=== PATIENT | female | born 1935 | race American Indian/Alaskan Native ===

== ENCOUNTER 2017-10-28 05:06 | Emergency (ER) | payer OTHER ==
[2017-10-28 05:10] VITALS: BP 157/83; PULSE 63; BMI 20.1
[2017-10-28] MEDS ORDERED: morphine CARPU-JECT 2 MG/1 ML DISP.SYRIN IM ONE (05:21)
--- NOTE | 2017-10-28 05:26 | PDOC ---
History of Present Illness - General History Source: Patient Exam Limitations: No Limitations - History of Present Illness Initial Comments: 10/28/17 06:56 Patient is an 81 year old female who presents to the ED with complaints of left arm pain, s/p fall that occured 1 hour prior to ED arrival. Patient reports waking up this morning and feeling light headed while walking back to bed from restroom, causing her to lose her balance and fall. She reports falling on her left arm on to a flashlight lying on the floor causing immediate pain. Patient reports applying bengay and a hot pack to left arm after fall with minimal relief. Patient reports coming into the ED for further evaluation after pain did not subside. Denies chest pain, shortness of breath, headache. Denies head trauma, loss of consciousness, hip pain, room spinning,. She denies fever, chills, nausea, vomit , diarrhea and constipation. She denies dysuria, frequency, urgency and hematuria. Remainder of ROS reviewed and unremarkable. PMHx:HTN, Hyperthyroid, Life time pre-syncope episodes with falls. Allergies: Aspirin (Dizziness) Social history: She denies alcohol, tobacco or drug use Surgical history: Thyroid removal PMD: Dr. Brian Alfred <Steven Holley - Last Filed: 10/28/17 06:55> <Anitha Kamara - Last Filed: 10/28/17 07:04> - General Chief Complaint: Injury Stated Complaint: PAIN,SHOULDER Time Seen by Provider: 10/28/17 05:18 Past History <Steven Holley - Last Filed: 10/28/17 06:55> - Past Medical History HTN: Yes Seizures: Yes (hyperthyroid) - Suicide/Smoking/Psychosocial Hx Smoking History: Never smoked Have you smoked in the past 12 months: No Information on smoking cessation initiated: No Hx Alcohol Use: No Drug/Substance Use Hx: No Substance Use Type: None <Anitha Kamara - Last Filed: 10/28/17 07:04> - Past Medical History Allergies/Adverse Reactions: Allergies Allergy/AdvReac Type Severity Reaction Status Date / Time aspirin Allergy Verified 10/28/17 05:10 Home Medications: Ambulatory Orders Hydrochlorothiazide [Hctz -] 25 mg PO DAILY 01/21/16 Levothyroxine Sodium [Unithroid] 25 mcg PO DAILY 01/21/16 Pantoprazole Sodium [Protonix] 40 mg PO DAILY 01/21/16 Valsartan [Diovan] 160 mg PO DAILY 01/21/16 Review of Systems - Review of Systems Able to Perform ROS?: Yes Comments:: 10/28/17 06:56 See HPI. All other systems reviewed and unremarkable All Other Systems: Reviewed and Negative <Steven Holley - Last Filed: 10/28/17 06:55> *Physical Exam - Vital Signs Last Vital Signs Temp Pulse Resp BP Pulse Ox 63 18 157/83 99 10/28/17 05:09 10/28/17 05:09 10/28/17 05:09 10/28/17 05:09 <Steven Holley - Last Filed: 10/28/17 06:55> - Vital Signs Last Vital Signs Temp Pulse Resp BP Pulse Ox 63 18 157/83 99 10/28/17 05:09 10/28/17 05:09 10/28/17 05:09 10/28/17 05:09 - Physical Exam Comments: 10/28/17 05:24 NAD well appearing ABC intact GCS 15 NCAT no midline cervical tenderness rrr ctabl, no rib tenderness. soft ntnd L shoulder nontender, humeral head palpable in joint L humerus w/ mid-humeral tenderness, no palpable stepoff. L elbow w/ pain w/ ROM, no palpable effusion distal pulses intact sensation intact to fingers and shoulder patch area. pelvis stable ROM hips/knees/ankles b/l neuro grossly intact, moving all 4. A&O x 3. <Anitha Kamara - Last Filed: 10/28/17 07:04> ED Treatment Course - LABORATORY CBC & Chemistry Diagram: 10/28/17 06:03 10/28/17 06:03 - ADDITIONAL ORDERS Additional order review: Laboratory Results 10/28/17 10/28/17 06:20 06:03 Sodium 134 L Potassium 3.3 L Chloride 96 L Carbon Dioxide 32 Anion Gap 6 L BUN 13 Creatinine 0.5 L Random Glucose 113 H Calcium 8.5 Troponin I 0.07 H Urine Color Ltyellow Urine Appearance Slcloudy Urine pH 7.0 Ur Specific [place] 1.012 Urine Protein Negative Urine Glucose (UA) Negative Urine Ketones Negative Urine Blood Negative Urine Nitrite Negative Urine Bilirubin Negative Urine Urobilinogen Negative Ur Leukocyte Esterase Negative 10/28/17 06:03 RBC 5.94 H MCV 58.7 L MCHC 32.1 RDW 15.9 H MPV 9.7 D Neutrophils % 86.3 H D Lymphocytes % 9.4 D Monocytes % 3.7 L Eosinophils % 0.4 D Basophils % 0.2 - Medications Given in the ED: ED Medications Discontinued Medications Generic Name Dose Route Start Last Admin Trade Name Reynaldo PRN Reason Stop Dose Admin Morphine Sulfate 2 mg 10/28/17 05:21 10/28/17 06:31 Morphine Injection - IM 10/28/17 05:22 2 mg ONCE ONE Administration <Steven Holley - Last Filed: 10/28/17 06:55> - LABORATORY CBC & Chemistry Diagram: 10/28/17 06:03 10/28/17 06:03 - RADIOLOGY Radiology Studies Ordered: Category Date Time Status CHEST PA & LAT [RAD] Stat Radiology 10/28/17 05:21 Ordered ELBOW-LEFT [RAD] Stat Radiology 10/28/17 05:21 Ordered HUMERUS-LEFT [RAD] Stat Radiology 10/28/17 05:21 Ordered SHOULDER-LEFT [RAD] Stat Radiology 10/28/17 05:21 Ordered <Anitha Kamara - Last Filed: 10/28/17 07:04> Medical Decision Making - Medical Decision Making 10/28/17 05:26 81yoF w/ longstanding history of frequent presyncopal episodes leading to falls presnets w/ same this morning, + L humeral pain where pt states she "fell onto a flashlight." - rads - pain control - ekg - screening labs. - dispo per results. 10/28/17 06:57 xrays w/ + humeral neck fx on L. CXR clear Labs at baseline from prior visit: Laboratory Tests 01/21/16 10/28/17 17:36 06:03 Sodium 135 L 134 L Troponin I 0.07 0.07 H EKG nonischemic, no e/o arrhytmia. OK for DC w/ arm sling, referral to orthopedics and pain control. <Anitha Kamara - Last Filed: 10/28/17 07:04> *DC/Admit/Observation/Transfer - Attestations Scribe Attestion: 10/28/17 06:56 Documentation prepared by Steven Holley, acting as manager of medical for Anitha Kamara MD, MD/DO. <Steven Holley - Last Filed: 10/28/17 06:55> - Discharge Dispostion Admit: No <Anitha Kamara - Last Filed: 10/28/17 07:04> Diagnosis at time of Disposition: Humerus fracture - Discharge Dispostion Disposition: HOME Condition at time of disposition: Stable - Referrals Referrals: Brian Alfred MD [Primary Care Provider] - Raza Coronado MD [Staff Physician] - - Patient Instructions Printed Discharge Instructions: How to Use a Sling Additional Instructions: You have broken your arm bone high up near the shoulder. It is very important that you DO NOT USE YOUR ARM. Keep your arm in the sling. Do not carry any weight heavier than a few pieces of paper with your LEFT arm. Take pain medicine as prescribed. Please see Dr. Coronado from Orthopedics (phone number above) this week in the office.
[2017-10-28] MEDS ORDERED: MORPHINE SULFATE 10 MG/1 ML *VIAL ONE (05:52)
[2017-10-28 06:15] LABS: BASO % 0.2 % (0-2.0); EOS % 0.4 % (0-4.5); HEMATOCRIT 34.9 % (32.4-45.2); HEMOGLOBIN 11.2 GM/dL (10.7-15.3); LYMPH % 9.4 % (8-40); MCHC 32.1 g/dl (32.0-36.0); MEAN CELL VOLUME 58.7 fl (80-96); MEAN PLT VOLUME 9.7 fl (7.5-11.1); MONO % 3.7 % (3.8-10.2); NEUT % 86.3 % (42.8-82.8); PLATELET COUNT 154 K/MM3 (134-434); RBC 5.94 M/mm3 (3.60-5.2); RDW 15.9 % (11.6-15.6); WHITE BLOOD COUNT 9.3 K/mm3 (4.0-10.0)
[2017-10-28 06:31] LABS: ADD RBC MORPHOLOGY YES; MCH 18.9 pg (25.7-33.7)
[2017-10-28 06:45] LABS: URINE APPEARANCE SLCLOUDY; URINE BILIRUBIN NEGATIVE (NEGATIVE); URINE BLOOD NEGATIVE (NEGATIVE); URINE COLOR LTYELLOW; URINE GLUCOSE (UA) NEGATIVE (NEGATIVE); URINE KETONE NEGATIVE (NEGATIVE); URINE LEUK ESTERASE NEGATIVE (NEGATIVE); URINE NITRITE NEGATIVE (NEGATIVE); URINE PROTEIN NEGATIVE (NEGATIVE); URINE UROBILINOGEN NEGATIVE mg/dL (0.2-1.0)
[2017-10-28 06:47] LABS: ANION GAP 6 (8-16); BLOOD UREA NITROGEN 13 mg/dL (7-18); CALCIUM 8.5 mg/dL (8.5-10.1); CHLORIDE 96 mmol/L (98-107); CO2 32 mmol/L (21-32); CREATININE 0.5 mg/dL (0.55-1.02); GLUCOSE,RANDOM 113 mg/dL (74-106); SODIUM 134 mmol/L (136-145)
[2017-10-28 06:51] LABS: POTASSIUM 3.3 mmol/L (3.5-5.1)
--- NOTE | 2017-10-28 08:44 | PDOC ---
*Physical Exam - Vital Signs Last Vital Signs Temp Pulse Resp BP Pulse Ox 63 18 157/83 99 10/28/17 05:09 10/28/17 05:09 10/28/17 05:09 10/28/17 05:09 <Robe Mancia - Last Filed: 10/28/17 10:34> - Vital Signs Last Vital Signs Temp Pulse Resp BP Pulse Ox 63 18 157/83 99 10/28/17 05:09 10/28/17 05:09 10/28/17 05:09 10/28/17 05:09 <EneidaArungeorgiana - Last Filed: 10/28/17 11:02> ED Treatment Course - LABORATORY CBC & Chemistry Diagram: 10/28/17 06:03 10/28/17 06:03 - ADDITIONAL ORDERS Additional order review: Laboratory Results 10/28/17 10/28/17 06:20 06:03 Sodium 134 L Potassium 3.3 L Chloride 96 L Carbon Dioxide 32 Anion Gap 6 L BUN 13 Creatinine 0.5 L Random Glucose 113 H Calcium 8.5 Troponin I 0.07 H Urine Color Ltyellow Urine Appearance Slcloudy Urine pH 7.0 Ur Specific [place] 1.012 Urine Protein Negative Urine Glucose (UA) Negative Urine Ketones Negative Urine Blood Negative Urine Nitrite Negative Urine Bilirubin Negative Urine Urobilinogen Negative Ur Leukocyte Esterase Negative 10/28/17 06:03 RBC 5.94 H MCV 58.7 L MCHC 32.1 RDW 15.9 H MPV 9.7 D Neutrophils % 86.3 H D Lymphocytes % 9.4 D Monocytes % 3.7 L Eosinophils % 0.4 D Basophils % 0.2 - Medications Given in the ED: ED Medications Discontinued Medications Generic Name Dose Route Start Last Admin Trade Name Freq PRN Reason Stop Dose Admin Morphine Sulfate 2 mg 10/28/17 05:21 10/28/17 06:31 Morphine Injection - IM 10/28/17 05:22 2 mg ONCE ONE Administration <Robe Mancia - Last Filed: 10/28/17 10:34> - LABORATORY CBC & Chemistry Diagram: 10/28/17 06:03 10/28/17 06:03 - ADDITIONAL ORDERS Additional order review: Laboratory Results 10/28/17 10/28/17 06:20 06:03 Sodium 134 L Potassium 3.3 L Chloride 96 L Carbon Dioxide 32 Anion Gap 6 L BUN 13 Creatinine 0.5 L Random Glucose 113 H Calcium 8.5 Troponin I 0.07 H Urine Color Ltyellow Urine Appearance Slcloudy Urine pH 7.0 Ur Specific [place] 1.012 Urine Protein Negative Urine Glucose (UA) Negative Urine Ketones Negative Urine Blood Negative Urine Nitrite Negative Urine Bilirubin Negative Urine Urobilinogen Negative Ur Leukocyte Esterase Negative 10/28/17 06:03 RBC 5.94 H MCV 58.7 L MCHC 32.1 RDW 15.9 H MPV 9.7 D Neutrophils % 86.3 H D Lymphocytes % 9.4 D Monocytes % 3.7 L Eosinophils % 0.4 D Basophils % 0.2 - Medications Given in the ED: ED Medications Discontinued Medications Generic Name Dose Route Start Last Admin Trade Name Reynaldo PRN Reason Stop Dose Admin Morphine Sulfate 2 mg 10/28/17 05:21 10/28/17 06:31 Morphine Injection - IM 10/28/17 05:22 2 mg ONCE ONE Administration <Deisy Monique - Last Filed: 10/28/17 11:02> Medical Decision Making - Medical Decision Making 10/28/17 08:46 Called [facility] service, who said the earliest doctor available is Dr. Browne at 10AM. 10/28/17 10:34 Spoke with KASSY Leger (covering for Dr. Browne) regarding this patient. <Robe Mancia - Last Filed: 10/28/17 10:34> - Medical Decision Making 10/28/17 10:49 X-ray with proximal humeral fracture. Discussed with KASSY Camacho who works with Dr. Browne (ortho). He recommends a sling and follow up within [address] Browne. Sling placed onto patient's LUE, continues to be NVI. Pain is well controlled. Pt declines strong pain medication, states she will take tylenol as needed. I discussed the physical exam findings, ancillary test results and final diagnoses with the patient. I answered all of the patient's questions. The patient was satisfied with the care received and felt comfortable with the discharge plan and treatment plan. The patient will call their primary care physician within 24 hours to arrange follow-up and will return to the Emergency Department with any new, persistent or worsening symptoms. <Deisy Monique - Last Filed: 10/28/17 11:02> *DC/Admit/Observation/Transfer <Robe Mancia - Last Filed: 10/28/17 10:34> - Attestations Physician Attestion: 10/28/17 10:50 I, Dr. Deisy Monique MD, attest that this document has been prepared under my direction and personally reviewed by me in its entirety. I further attest, that it accurately reflects all work, treatment, procedures and medical decision -making performed by me. <Deisy Monique - Last Filed: 10/28/17 11:02> Diagnosis at time of Disposition: Humerus fracture - Discharge Dispostion Disposition: HOME Condition at time of disposition: Stable - Referrals Referrals: Raza Coronado MD [Staff Physician] - Brian Alfred MD [Primary Care Provider] - - Patient Instructions Printed Discharge Instructions: How to Use a Sling Additional Instructions: You have broken your arm bone high up near the shoulder. It is very important that you DO NOT USE YOUR ARM. Keep your arm in the sling. Do not carry any weight heavier than a few pieces of paper with your LEFT arm. Take pain medicine as prescribed. Please see Dr. Coronado from Orthopedics (phone number above) this week in the office. - Post Discharge Activity
--- NOTE | 2017-10-28 13:43 | EKG ---
Test Reason : Blood Pressure : / mmHG Vent. Rate : 060 BPM Atrial Rate : 060 BPM P-R Int : 170 ms QRS Dur : 100 ms QT Int : 438 ms P-R-T Axes : 064 008 057 degrees QTc Int : 438 ms POOR DATA QUALITY, INTERPRETATION MAY BE ADVERSELY AFFECTED NORMAL SINUS RHYTHM NONSPECIFIC T WAVE ABNORMALITY ABNORMAL ECG WHEN COMPARED WITH ECG OF 21-JAN-2016 17:17, CRITERIA FOR SEPTAL INFARCT ARE NO LONGER PRESENT Confirmed by MD JEFF, YOHANNES ([id number]) on 10/28/2017 1:43:18 PM Referred By: Confirmed By:YOHANNES AGUILAR MD
== END 2017-10-28 13:22 | disposition home or self-care (01) ==
LOC: JER 05:06
DX: S42.215A Unspecified nondisplaced fracture of surgical neck of left humerus, initial encounter for closed fracture (principal); S42.295A Other nondisplaced fracture of upper end of left humerus, initial encounter for closed fracture; W18.39XA Other fall on same level, initial encounter; Z91.81 History of falling; Y93.89 Activity, other specified; Y92.032 Bedroom in apartment as the place of occurrence of the external cause; I10 Essential (primary) hypertension; E05.90 Thyrotoxicosis, unspecified without thyrotoxic crisis or storm
CPT/HCPCS: 36415; 71046-TC; 73030-TC-LT; 73060-TC-LT; 73070-TC-LT; 80048; 81003; 84484; 85025; 93005; 93010; 99282-25

== ENCOUNTER 2019-01-24 11:32 | Inpatient (IN) | payer OTHER ==
--- NOTE | 2019-01-24 12:24 | PDOC ---
Documentation entered by Steffany Ivory SCRIBE, acting as scribe for Flor Hollins MD. Flor Hollins MD: This documentation has been prepared by the Dianelys sandhu Daisy, SCRIBE, under my direction and personally reviewed by me in its entirety. I confirm that the documentation accurately reflects all work, treatment, procedures, and medical decision making performed by me. Attending Attestation - Resident Resident Name: Mitchell Melendrez - ED Attending Attestation I have performed the following: I have examined & evaluated the patient, The case was reviewed & discussed with the resident, I agree w/resident's findings & plan - HPI HPI: 01/24/19 12:18 83 yo F h/o prior cva, htn here wtih AMS. per pt sister whom she lives with pt was last at baseline yesterday am. in afternoon, she noticed she seemed to be more confused, not making sense when she spoke and sitting with her head down. no nv no trauma. no fever or chills. states she normally converses and walks with a walker, even cooks some times. since hasn't been walking , unable tounderstand directions, and not making sense when talking. pt is mongolian speaking. - Physicial Exam PE: 01/24/19 12:19 on exam pt is awake, alert eyes open, moist mucous membranes. mild right facial droop noted. on nasolabial fold. lungs clear bilat,heart rrr no mrg abd soft nt nd ext wwp no edema. no calf tenderness. nuero mild nasolabial fold flattening right side face. moves all four ext. appears weaker on right upper and lower, unabel to cooperate wtih strength testing as not following commands. skin warm and dry. - Medical Decision Making 01/24/19 12:21 83 yo F with h/o htn prior cva here with AMS, appears no facial droop concerns for cva. differential includes infection, such as uti or pna, electrolyte abnml, anemia, glucose derangement, ich. plan ct head labs ekg. likely admit. 01/24/19 14:[address] with subacute infarct left parietal lobe, old on the right . troponin is positive 7. ekg unchanged. ua negative for infection. cxr is unremarkable. will admit / d/w dr Beckman for subacute stroke. will admit to dr zhou covering for dr alfred. will consult cardiology. 01/24/19 15:00 Case d/w Dr. Zhou, will admit for Dr. Alfred 01/24/19: 15:11 Resident discussed case with Dr. Odonnell, cardiology. Heart Score/ECG Review #1 ECG reviewed & interpreted by me at: 12:50 General ECG Interpretation: Sinus Rhythm, Normal Rate, Normal Intervals, No acute ischemic changes Compared to previous ECG there are: No significant change (comparison 10/28/17) NIH Stroke Scale - Last Known Well Date/Time & Onset Date Last Known Well: 01/23/19 Time Last Known Well: 12:00 - Initial Evaluation Level of consciousness: Alert Ask patient the month and their age: Both incorrect Ask patient to open & close eyes; make fist and let go: Both incorrect Best gaze (horizontal eye movement): Normal Visual field testing: No visual field loss Facial paresis (Show teeth/raise eyebrows/close eyes tight): Minor paralysis ( flattened nasolabial fold, asymmetry on smiling) (right nasolabial flattening) Motor Function: Left Arm: Some effort against gravity Motor Function: Right Arm: Some effort against gravity Motor Function: Left Leg: Some effort against gravity Motor Function: Right Leg: No effort against gravity Limb Ataxia: Untestable (Joint fused or limb amputated), explain: (cant understand instructions) Sensory(Use pinprick test arms,legs,trunk,face/side to side): Normal Best language (Describe picture, name items, read sentences): Mild to moderate aphasia Dysarthria (read several words): Normal articulation Extinction and Inattention: No abnormality - Total Score NIH Stroke Scale Score: 15
[2019-01-24 12:46] LABS: BASO % 0.5 % (0-2.0); EOS % 0.5 % (0-4.5); HEMATOCRIT 35.8 % (32.4-45.2); HEMOGLOBIN 11.4 GM/dL (10.7-15.3); LYMPH % 12.4 % (8-40); MEAN CELL VOLUME 58.8 fl (80-96); MEAN PLT VOLUME 10.1 fl (7.5-11.1); MONO % 3.6 % (3.8-10.2); PLATELET COUNT 152 K/MM3 (134-434); RBC 6.09 M/mm3 (3.60-5.2); RDW 16.4 % (11.6-15.6); WHITE BLOOD COUNT 8.8 K/mm3 (4.0-10.0)
[2019-01-24 12:47] LABS: MCH 18.8 pg (25.7-33.7)
--- NOTE | 2019-01-24 13:10 | PDOC ---
History of Present Illness - History of Present Illness Initial Comments: The pt is an 83F w/ a history of HTN, previous TIA (2016 w/o deficit) who presents for acute onset AMS/confusion since approximately 1200 yesterday. Family denies pt 01/24/19 13:09 <Mitchell Melendrez - Last Filed: 01/24/19 14:13> <Flor Hollins - Last Filed: 01/24/19 15:11> - General Chief Complaint: Altered Mental Status Stated Complaint: ALTERED MENTAL STATUS Time Seen by Provider: 01/24/19 11:48 NIH Stroke Scale - Last Known Well Date/Time & Onset Date Last Known Well: 01/23/19 Time Last Known Well: 12:00 - Initial Evaluation Level of consciousness: Alert Ask patient the month and their age: Both incorrect Ask patient to open & close eyes; make fist and let go: Both incorrect Best gaze (horizontal eye movement): Normal Visual field testing: No visual field loss Facial paresis (Show teeth/raise eyebrows/close eyes tight): Minor paralysis ( flattened nasolabial fold, asymmetry on smiling) (right) Motor Function: Left Arm: Some effort against gravity Motor Function: Right Arm: Some effort against gravity Motor Function: Left Leg: Some effort against gravity Motor Function: Right Leg: No effort against gravity Limb Ataxia: Untestable (Joint fused or limb amputated), explain: (uable to follow commands) Sensory(Use pinprick test arms,legs,trunk,face/side to side): Normal Best language (Describe picture, name items, read sentences): Mild to moderate aphasia Dysarthria (read several words): Normal articulation Extinction and Inattention: No abnormality - Total Score NIH Stroke Scale Score: 15 <Mitchell Melendrez - Last Filed: 01/24/19 14:13> Past History - Past Medical History COPD: No HTN: Yes Seizures: Yes (hyperthyroid) - Immunization History Immunization Up to Date: Yes - Suicide/Smoking/Psychosocial Hx Smoking History: Never smoked Have you smoked in the past 12 months: No Hx Alcohol Use: No Drug/Substance Use Hx: No Substance Use Type: None <Mitchell Melendrez - Last Filed: 01/24/19 14:13> <Flor Hollins - Last Filed: 01/24/19 15:11> - Past Medical History Allergies/Adverse Reactions: Allergies Allergy/AdvReac Type Severity Reaction Status Date / Time aspirin Allergy Unknown Verified 01/24/19 11:58 Home Medications: Ambulatory Orders Levothyroxine Sodium [Unithroid] 25 mcg PO DAILY 01/21/16 Losartan 50Mg/Hctz 12.5MG [Hyzaar -] 1 tab PO DAILY 01/24/19 Review of Systems - Review of Systems Able to Perform ROS?: No (2/2 medical condition) <Mitchell Melendrez - Last Filed: 01/24/19 14:13> *Physical Exam - Vital Signs Last Vital Signs Temp Pulse Resp BP Pulse Ox 98.6 F 70 18 165/65 100 01/24/19 11:39 01/24/19 11:39 01/24/19 11:39 01/24/19 11:39 01/24/19 11:39 - Physical Exam Comments: GENERAL: Awake, in no acute distress HEAD: No signs of trauma, normocephalic, atraumatic EYES: PERRLA, EOMI, sclera anicteric, conjunctiva clear ENT: Hearing grossly normal, nares patent, oropharynx clear without exudates. Moist mucosa LUNGS: No distress, speaks full sentences, clear to auscultation bilaterally HEART: Regular rate and rhythm, normal S1 and S2, no murmurs appreciated, peripheral pulses normal and equal bilaterally ABDOMEN: Soft, nontender, normoactive bowel sounds. No guarding, no rebound EXTREMITIES: Normal inspection, Normal range of motion, no edema. No clubbing or cyanosis NEUROLOGICAL: Tangential speech, does not follow commands, moves all extremities independently, withdraws to pain SKIN: Warm, Dry 01/24/19 13:50 <Mitchell Melendrez - Last Filed: 01/24/19 14:13> - Vital Signs Last Vital Signs Temp Pulse Resp BP Pulse Ox 98.6 F 70 18 165/65 100 01/24/19 11:39 01/24/19 11:39 01/24/19 11:39 01/24/19 11:39 01/24/19 11:39 <Flor Hollins - Last Filed: 01/24/19 15:11> ED Treatment Course - LABORATORY CBC & Chemistry Diagram: 01/24/19 12:37 01/24/19 12:37 - ADDITIONAL ORDERS Additional order review: Laboratory Results 01/24/19 12:42 PT with INR Cancelled INR Cancelled 01/24/19 12:37 RBC 6.09 H MCV 58.8 L MCHC 32.0 RDW 16.4 H Neutrophils % 83.0 H Lymphocytes % 12.4 D Monocytes % 3.6 L Eosinophils % 0.5 Basophils % 0.5 - RADIOLOGY Radiology Studies Ordered: Category Date Time Status HEAD CT WITHOUT CONTRAST [CT] Stat CT Scan 01/24/19 12:09 Completed CHEST X-RAY PORTABLE* [RAD] Stat Radiology 01/24/19 11:59 Ordered <Mitchell Melendrez - Last Filed: 01/24/19 14:13> - LABORATORY CBC & Chemistry Diagram: 01/24/19 12:37 01/24/19 12:37 - ADDITIONAL ORDERS Additional order review: Laboratory Results 01/24/19 01/24/19 01/24/19 13:33 13:15 12:42 PT with INR 11.90 Cancelled INR 1.01 Cancelled PTT ([place] FS) 37.3 H Sodium Potassium Chloride Carbon Dioxide Anion Gap BUN Creatinine Creat Clearance w eGFR Random Glucose Calcium Total Bilirubin AST ALT Alkaline Phosphatase Creatine Kinase Troponin I Total Protein Albumin Triglycerides Cholesterol Total LDL Cholesterol HDL Cholesterol Urine Color Yellow Urine Appearance Slightly cloudy Urine pH 8.5 H D Ur Specific [place] 1.020 Urine Protein Negative Urine Glucose (UA) Negative Urine Ketones Negative Urine Blood Trace-intact Urine Nitrite Negative Urine Bilirubin Negative Urine Urobilinogen 0.2 Ur Leukocyte Esterase Negative Urine WBC (Auto) 1 Urine RBC (Auto) 2 Urine Casts (Auto) Few U Epithel Cells (Auto) 0.2 Urine Crystals (Auto) None seen Urine Bacteria (Auto) Few 01/24/19 12:37 PT with INR INR PTT (Actin FS) Sodium 138 Potassium 3.6 Chloride 103 Carbon Dioxide 25 Anion Gap 9 BUN 8 Creatinine 0.5 L Creat Clearance w eGFR 117.83 Random Glucose 88 Calcium 8.4 L Total Bilirubin 0.4 AST 60 H ALT 24 Alkaline Phosphatase 62 Creatine Kinase 146 Troponin I 7.13 H* Total Protein 6.7 Albumin 3.2 L Triglycerides 79 Cholesterol 102 Total LDL Cholesterol 51 HDL Cholesterol 45 Urine Color Urine Appearance Urine pH Ur Specific [place] Urine Protein Urine Glucose (UA) Urine Ketones Urine Blood Urine Nitrite Urine Bilirubin Urine Urobilinogen Ur Leukocyte Esterase Urine WBC (Auto) Urine RBC (Auto) Urine Casts (Auto) U Epithel Cells (Auto) Urine Crystals (Auto) Urine Bacteria (Auto) 01/24/19 12:37 RBC 6.09 H MCV 58.8 L MCHC 32.0 RDW 16.4 H MPV 10.1 Neutrophils % 83.0 H Lymphocytes % 12.4 D Monocytes % 3.6 L Eosinophils % 0.5 Basophils % 0.5 <Flor Hollins - Last Filed: 01/24/19 15:11> Medical Decision Making - Medical Decision Making ED Course Labs sent ECG CXR CT head w/o CT head w/ acute vs subacute parietal infarct -Dr. Beckman consulted, will evaluate pt 01/24/19 13:52 Troponinemia to 7 01/24/19 14:07 <Mitchell Melendrez - Last Filed: 01/24/19 14:13> *DC/Admit/Observation/Transfer <Mitchell Melendrez - Last Filed: 01/24/19 14:13> - Discharge Dispostion Decision to Admit order: Yes <Flor Hollins - Last Filed: 01/24/19 15:11> Diagnosis at time of Disposition: CVA (cerebral vascular accident), NSTEMI (non-ST elevated myocardial infarction ) - Referrals Referrals: Brian Alfred MD [Primary Care Provider] -
[2019-01-24 13:19] LABS: ANISOCYTOSIS 2+; MACROCYTOSIS 0; OVALOCYTE 1+; PLATELET ESTIMATE NORMAL; TARGET CELLS 1+
[2019-01-24 13:24] LABS: ALBUMIN 3.2 g/dl (3.4-5.0); ALK PHOS 62 U/L (45-117); ANION GAP 9 MMOL/L (8-16); BILIRUBIN,TOTAL 0.4 mg/dL (0.2-1); BLOOD UREA NITROGEN 8 mg/dL (7-18); CALCIUM 8.4 mg/dL (8.5-10.1); CHLORIDE 103 mmol/L (98-107); CO2 25 mmol/L (21-32); CREATININE 0.5 mg/dL (0.55-1.3); GLUCOSE,RANDOM 88 mg/dL (74-106); POTASSIUM 3.6 mmol/L (3.5-5.1); SGOT/AST 60 U/L (15-37); SGPT/ALT 24 U/L (13-61); SODIUM 138 mmol/L (136-145); TOT PROT 6.7 g/dl (6.4-8.2)
[2019-01-24] MEDS ORDERED: SODIUM CHLORIDE 0.9% 500 ML INFUS.BAG IV ONE (13:32)
[2019-01-24 13:57] LABS: CHOLESTEROL 102 mg/dL (50-200); HDL CHOLESTEROL 45 mg/dL (40-60); TRIGLYCERIDES 79 mg/dL (0-150)
[2019-01-24 14:04] LABS: INR 1.01 (0.83-1.09); PROTHROMBIN TIME (PATIENT) 11.9 SEC (9.7-13.0)
[2019-01-24 14:06] LABS: PH,URINE 8.5 (5.0-8.0); URINE APPEARANCE Slightly Cloudy; URINE BILIRUBIN Negative (NEGATIVE); URINE COLOR Yellow; URINE GLUCOSE (UA) Negative (NEGATIVE); URINE KETONE Negative (NEGATIVE); URINE LEUK ESTERASE Negative (NEGATIVE); URINE NITRITE Negative (NEGATIVE); URINE PROTEIN Negative (NEGATIVE); URINE UROBILINOGEN 0.2 mg/dL (0.2-1.0)
[2019-01-24 14:06] LABS: ACTIVATED PTT 37.3 SECONDS (25.2-36.5)
[2019-01-24 14:10] LABS: EPI CELLS 0.2 /HPF (0-5/HPF); URINE RBC 2 /hpf (0-4); URINE WBC 1 /hpf (0-5)
[2019-01-24 14:11] LABS: URINE BACTERIA FEW /hpf (NEGATIVE); URINE CASTS FEW /lpf (0-8); URINE CRYSTALS NONE SEEN /hpf
--- NOTE | 2019-01-24 15:20 | EKG ---
Test Reason : Blood Pressure : / mmHG Vent. Rate : 065 BPM Atrial Rate : 065 BPM P-R Int : 168 ms QRS Dur : 106 ms QT Int : 456 ms P-R-T Axes : 053 013 061 degrees QTc Int : 474 ms NORMAL SINUS RHYTHM ANTERIOR INFARCT , AGE UNDETERMINED ABNORMAL ECG WHEN COMPARED WITH ECG OF 28-OCT-2017 06:30, ANTERIOR INFARCT IS NOW PRESENT Confirmed by CIERRA SHI MD ([id number]) on 01/24/2019 3:20:04 PM Referred By: Confirmed By:CIERRA SHI MD
--- NOTE | 2019-01-24 19:20 | CON.NEURO ---
Consult Consult Specialty:: NEUROLOGY-CHARLIE SWANSON Reason for Consultation:: 'Confusion" - History of Present Illness History of Present Illness: The pt is an 83F w/ a history of HTN, previous TIA (2016 w/o deficit) who presents for acute onset AMS/confusion since approximately 1200 yesterday. sas per sister she became"confused" yesterday at lunch time, began misnaming objects and tends to look more to left, has difficulty recognizing family members. - Alcohol/Substance Use Hx Alcohol Use: No - Smoking History Smoking history: Never smoked Have you smoked in the past 12 months: No Home Medications - Allergies Allergies/Adverse Reactions: Allergies Allergy/AdvReac Type Severity Reaction Status Date / Time aspirin Allergy Unknown Verified 01/24/19 11:58 - Home Medications Home Medications: Ambulatory Orders Levothyroxine Sodium [Unithroid] 25 mcg PO DAILY 01/21/16 Losartan 50Mg/Hctz 12.5MG [Hyzaar -] 1 tab PO DAILY 01/24/19 Physical Exam-Neuro Vital Signs: Vital Signs Temperature 97.9 F 01/24/19 17:03 Pulse Rate 69 01/24/19 17:03 Respiratory Rate 18 01/24/19 17:03 Blood Pressure 172/76 H 01/24/19 17:03 O2 Sat by Pulse Oximetry (%) 100 01/24/19 17:03 Labs: CBC, BMP 01/24/19 12:37 01/24/19 12:37 INR, PTT INR 1.01 (0.83-1.09) 01/24/19 13:15 - Neuro Exam Level Of Consciousness: Yes: Alert (unable to test further due to language d/o) Eyes: Yes: PERRL, Right Hemianopsia Speech: Wernicke's Aphasia (Language-impaired comprehension, non-fluent speech- mixed motor/sensory aphasia) Dominant Hand: Right Mini Mental Exam: + prosopagnosia, follows 1 step commands only Cranial Nerves II-XII Intact: No (diminished right nlf) Gag: Present DTR's: 1+ Left Brachioradialis, 1+ Right Brachioradialis, 1+ Left Achilles, 1+ Right Achilles (trace bilat knees), 2+ Left Bicep, 2+ Right Bicep, 2+ Left Tricep, 2+ Right Tricep Babinski: Present (right) Response to light touch: Abnormal Response to pain prick: Abnormal (diminished touch/pin sensation right arm/leg) Coordination: Normal: Finger to Nose (unable to test) Motor Strength: 2/5: Right Leg, 4/5: Right Arm, 5/5: Left Arm, Left Leg Imaging - Results MRI: Report Reviewed (Reported with left post. parietal infarct) Assessment/Plan Pt. with right motor/sensory deficit, right hemianopsia, mri reported with left post. parietal infarct?? post div MCAterritory but exam is more c/w mca stem territory infarct- ant. aphasia, field cut etc. Likely etiology is cardioembolic. she is out of thrombolysis/thrombectomy window Suggest: Plavix 75mg daily, card.consult/echo, carotid ultrasound, telemetry.
[2019-01-25 06:59] LABS: BASO % 0.4 % (0-2.0); EOS % 0.2 % (0-4.5); HEMATOCRIT 31.3 % (32.4-45.2); HEMOGLOBIN 10.4 GM/dL (10.7-15.3); LYMPH % 15.2 % (8-40); MEAN CELL VOLUME 58.4 fl (80-96); MEAN PLT VOLUME 10.6 fl (7.5-11.1); MONO % 6.2 % (3.8-10.2); PLATELET COUNT 154 K/MM3 (134-434); RBC 5.37 M/mm3 (3.60-5.2); RDW 16.7 % (11.6-15.6)
[2019-01-25 07:20] LABS: ALBUMIN 2.7 g/dl (3.4-5.0); ALK PHOS 57 U/L (45-117); ANION GAP 9 MMOL/L (8-16); BILIRUBIN,TOTAL 0.6 mg/dL (0.2-1); BLOOD UREA NITROGEN 11 mg/dL (7-18); CHLORIDE 103 mmol/L (98-107); CO2 27 mmol/L (21-32); CREATININE 0.4 mg/dL (0.55-1.3); GLUCOSE,RANDOM 68 mg/dL (74-106); POTASSIUM 3.1 mmol/L (3.5-5.1); SGOT/AST 45 U/L (15-37); SGPT/ALT 21 U/L (13-61); SODIUM 139 mmol/L (136-145); TOT PROT 5.7 g/dl (6.4-8.2)
[2019-01-25 07:54] LABS: MCH 19.3 pg (25.7-33.7)
--- NOTE | 2019-01-25 09:15 | CON.CARD ---
Consult Consult Specialty:: cardio - History of Present Illness Chief Complaint: alt MS History of Present Illness: 83 F here with confusion. family noted altered MS, misnaming objects. seen by neuro. dx'd with acute CVA ? cardioembolic currently: states she speaks welsh, answering most not all questions. appears to have left gaze preference denies cp, sob, palpitations PMH: HTN TIA - Alcohol/Substance Use Hx Alcohol Use: No - Smoking History Smoking history: Never smoked Have you smoked in the past 12 months: No Home Medications - Allergies Allergies/Adverse Reactions: Allergies Allergy/AdvReac Type Severity Reaction Status Date / Time aspirin Allergy Unknown Verified 01/24/19 11:58 - Home Medications Home Medications: Ambulatory Orders Levothyroxine Sodium [Unithroid] 25 mcg PO DAILY 01/21/16 Losartan 50Mg/Hctz 12.5MG [Hyzaar -] 1 tab PO DAILY 01/24/19 Review of Systems - Review of Systems Constitutional: denies: Chills, Fever Eyes: denies: Eye Pain HENT: denies: Nasal Congestion Neck: denies: Stiffness Cardiovascular: denies: Palpitations Respiratory: denies: Orthopnea, PND Gastrointestinal: denies: Diarrhea, Rectal Bleeding Genitourinary: denies: Burning, Hematuria Musculoskeletal: denies: Muscle Pain Integumentary: denies: Rash Neurological: denies: Numbness, Seizure, Syncope Endocrine: denies: Excessive Sweating Hematology/Lymphatic: denies: Excessive Bleeding Vital Signs: Vital Signs Temperature 97.8 F 01/24/19 22:00 Pulse Rate 62 01/25/19 07:06 Respiratory Rate 24 H 01/25/19 07:06 Blood Pressure 112/96 01/25/19 07:06 O2 Sat by Pulse Oximetry (%) 100 01/25/19 07:06 Constitutional: Yes: Well Nourished, No Distress Eyes: No: Sclera Icterus HENT: No: Nasal Congestion Neck: No: Decreased ROM Respiratory: Yes: CTA Bilaterally. No: Accessory Muscle Use Gastrointestinal: Yes: Normal Bowel Sounds. No: Distention, Hepatomegaly, Palpable Mass, Tenderness Cardiovascular: Yes: Regular Rate and Rhythm JVD: No Carotid Bruit: No PMI: Non-Displaced Heart Sounds: Yes: S1, S2. No: Gallop Murmur: No: Systolic Murmur, Diastolic Murmur Musculoskeletal: Yes: Other (No kyphosis) Extremities: No: Cool, Cyanosis Edema: No Peripheral Pulses: 2+ Left Carotid, 2+ Right Carotid, 2+ Left Doralis Pedis, 2+ Right Dorsalis Pedis Integumentary: No: Jaundice Neurological: Yes: Alert, Oriented (x3) Psychiatric: No: Agitated - Other Data Labs, Other Data: CBC, BMP 01/25/19 05:50 01/25/19 05:50 INR, PTT INR 1.01 (0.83-1.09) 01/24/19 13:15 Troponin, BNP 01/24/19 01/24/19 01/25/19 12:37 17:35 05:50 Troponin I 7.13 H* 6.96 H* 5.64 H* Troponin, BNP 01/24/19 01/24/19 01/25/19 12:37 17:35 05:50 Troponin I 7.13 H* 6.96 H* 5.64 H* Assessment/Plan ECG: NSR, ? old ASMI, NSST-Ts--similar to prior when accounting for baseline wander artifact CXR: clear lungs/pleura acute CVA: -neuro input appreciated: MRI reported with left post. parietal infarct, ?? post div MCA territory but exam is more c/w mca stem territory infarct-suspect cardioembolic etiology. (was out of thrombolysis/thrombectomy window) -antiPLT per neuro (rec.s plavix). -statin -bp targets per neuro -echo, carotid ultrasound -telemetry monitoring HTN: -bp reasonably controlled, low normal this am -targets per neuro (acute CVA)
--- NOTE | 2019-01-25 12:16 | HP ---
Admitting History and Physical - Admission History of Present Illness: 83 yo F h/o prior cva, htn here wtih AMS. per pt sister whom she lives with pt was last at baseline yesterday am. in afternoon, she noticed she seemed to be more confused, not making sense when she spoke and sitting with her head down. no nv no trauma. no fever or chills. states she normally converses and walks with a walker, even cooks some times. since hasn't been walking , unable tounderstand directions, and not making sense when talking. pt is latvian speaking. - Past Medical History Cardiovascular: Yes: HTN Endocrine: Yes: Hypothyroidism - Smoking History Smoking history: Never smoked Have you smoked in the past 12 months: No - Alcohol/Substance Use Hx Alcohol Use: No Home Medications - Allergies Allergies/Adverse Reactions: Allergies Allergy/AdvReac Type Severity Reaction Status Date / Time aspirin Allergy Unknown Verified 01/24/19 11:58 - Home Medications Home Medications: Ambulatory Orders Levothyroxine Sodium [Unithroid] 25 mcg PO DAILY 01/21/16 Losartan 50Mg/Hctz 12.5MG [Hyzaar -] 1 tab PO DAILY 01/24/19 Atorvastatin Ca [Lipitor] 40 mg PO HS tablet 02/01/19 Clopidogrel Bisulfate [Plavix -] 75 mg PO DAILY tablet 02/01/19 Family Disease History - Family Disease History Family History: Unable to Obtain Review of Systems Unable to obtain ROS, reason: CVA/Aphasia Physical Examination Vital Signs: Vital Signs Temperature 97.8 F 01/24/19 22:00 Pulse Rate 62 01/25/19 07:06 Respiratory Rate 24 H 01/25/19 07:06 Blood Pressure 112/96 01/25/19 07:06 O2 Sat by Pulse Oximetry (%) 100 01/25/19 07:06 Eyes: Yes: WNL HENT: Yes: WNL Neck: Yes: WNL, Supple Cardiovascular: Yes: WNL, Regular Rate and Rhythm Respiratory: Yes: WNL, Regular, CTA Bilaterally Gastrointestinal: Yes: WNL, Normal Bowel Sounds, Soft Extremities: Yes: WNL Edema: No Neurological: Yes: Aphasia ...Motor Strength: RUE (2/5 motor strength RUE/RLE), RLE Labs: CBC, BMP 01/25/19 05:50 04/29/19 05:50 Problem List - Problems (1) CVA (cerebral vascular accident) Assessment/Plan: Monitor BP Ct scan head showed acute/subacute parietal infarct Neuro/cardio consults Code(s): I63.9 - CEREBRAL INFARCTION, UNSPECIFIED (2) HTN (hypertension) Assessment/Plan: Cont losartan/hctz Code(s): I10 - ESSENTIAL (PRIMARY) HYPERTENSION (3) Hypothyroidism Assessment/Plan: Cont levothyroxine Code(s): E03.9 - HYPOTHYROIDISM, UNSPECIFIED
[2019-01-25] MEDS: LOSARTAN 50MG/HCTZ 12.5MG 1 TAB (FP) PO SCH (12:21)
[2019-01-25] MEDS: LEVOTHYROXINE NA 25 MCG TABLET (FP) PO SCH (12:21)
--- NOTE | 2019-01-25 12:21 | PN ---
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 (short form) - Note 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: 83F w/ a history of HTN, previous TIA (2016 w/o deficit) who presents for acute onset AMS/confusion since approximately 1200 01/24/19; as per sister she became"confused", began misnaming objects and tends to look more to left, has difficulty recognizing family members. FU : continues to be aphasic awaiting MRI ASA allergy TEST: Doppler Impression: Mild intimal thickening at the common carotid bifurcation, bilaterally with a tiny plaque on the right without evidence of hemodynamically significant stenosis, bilaterally. - Alcohol/Substance Use Hx Alcohol Use: No - Smoking History Smoking history: Never smoked Have you smoked in the past 12 months: No Home Medications - Allergies Allergies/Adverse Reactions: Allergies Allergy/AdvReac Type Severity Reaction Status Date / Time aspirin Allergy Unknown Verified 01/24/19 11:58 - Home Medications Home Medications: Ambulatory Orders Levothyroxine Sodium [Unithroid] 25 mcg PO DAILY 01/21/16 Losartan 50Mg/Hctz 12.5MG [Hyzaar -] 1 tab PO DAILY 01/24/19 Physical Exam-Neuro Vital Signs: Vital Signs Temperature 97.8 F 01/24/19 22:00 Pulse Rate 62 01/25/19 07:06 Respiratory Rate 24 H 01/25/19 07:06 Blood Pressure 112/96 01/25/19 07:06 O2 Sat by Pulse Oximetry (%) 100 01/25/19 07:06 Labs: CBCD WBC 8.0 K/mm3 (4.0-10.0) 01/25/19 05:50 RBC 5.37 M/mm3 (3.60-5.2) H 01/25/19 05:50 Hgb 10.4 GM/dL (10.7-15.3) L 01/25/19 05:50 Hct 31.3 % (32.4-45.2) L 01/25/19 05:50 MCV 58.4 fl (80-96) L 01/25/19 05:50 MCHC 33.0 g/dl (32.0-36.0) 01/25/19 05:50 RDW 16.7 % (11.6-15.6) H 01/25/19 05:50 Plt Count 154 K/MM3 (134-434) 01/25/19 05:50 MPV 10.6 fl (7.5-11.1) 01/25/19 05:50 CMP Sodium 139 mmol/L (136-145) 01/25/19 05:50 Potassium 3.1 mmol/L (3.5-5.1) L 01/25/19 05:50 Chloride 103 mmol/L (98-107) 01/25/19 05:50 Carbon Dioxide 27 mmol/L (21-32) 01/25/19 05:50 Anion Gap 9 MMOL/L (8-16) 01/25/19 05:50 BUN 11 mg/dL (7-18) 01/25/19 05:50 Creatinine 0.4 mg/dL (0.55-1.3) L 01/25/19 05:50 Creat Clearance w eGFR 152.44 (>60) 01/25/19 05:50 Calcium 8.0 mg/dL (8.5-10.1) L 01/25/19 05:50 Total Bilirubin 0.6 mg/dL (0.2-1) 01/25/19 05:50 AST 45 U/L (15-37) H 01/25/19 05:50 ALT 21 U/L (13-61) 01/25/19 05:50 Alkaline Phosphatase 57 U/L (45-117) 01/25/19 05:50 Total Protein 5.7 g/dl (6.4-8.2) L 01/25/19 05:50 Albumin 2.7 g/dl (3.4-5.0) L 01/25/19 05:50 - Neuro Exam Level Of Consciousness: Yes: Alert (unable to test further due to language d/o) Eyes: Yes: PERRL, Right Hemianopsia Speech: Wernicke's Aphasia (Language-impaired comprehension, non-fluent speech- mixed motor/sensory aphasia) Dominant Hand: Right Mini Mental Exam: + prosopagnosia, follows 1 step commands only Cranial Nerves II-XII Intact: No (diminished right nlf) Gag: Present DTR's: 1+ Left Brachioradialis, 1+ Right Brachioradialis, 1+ Left Achilles, 1+ Right Achilles (trace bilat knees), 2+ Left Bicep, 2+ Right Bicep, 2+ Left Tricep, 2+ Right Tricep Babinski: Present (right) Response to light touch: Abnormal Response to pain prick: Abnormal (diminished touch/pin sensation right arm/leg) Coordination: Normal: Finger to Nose (unable to test) Motor Strength: 2/5: Right Leg, 4/5: Right Arm, 5/5: Left Arm, Left Leg Imaging - Results MRI: Report Reviewed (Reported with left post. parietal infarct) Assessment/Plan Pt. with right motor/sensory deficit, right hemianopsia, possible left post. parietal infarct?? post div MCAterritory but exam is more c/w mca stem territory infarct- ant. aphasia, field cut etc. Likely etiology is cardioembolic. she is out of thrombolysis/thrombectomy window awaiting MRI BRAIN /MRA Suggest: Plavix 75mg daily ( ?ASa allergy) , card-consult/echo, carotid ultrasound (-) /holter a1c, tsh, PT and ST consult DR BERRY
--- NOTE | 2019-01-25 15:59 | ECHO ---
Name: SAMANTHA GIBBONS Exam:Adult Echocardiogram Study Date: 01/25/2019 10:40 AM Age: 83 yrs Reason For Study: POSITIVE TROPS Height: 64 in Weight: 115 lb BSA: 1.5 m2 MMode/2D Measurements & Calculations IVSd: 0.97 cm Ao root diam: 2.8 cm LVIDd: 4.4 cm LA dimension: 3.0 cm LVIDs: 3.0 cm LVPWd: 0.78 cm EDV(Teich): 86.1 ml LVOT diam: 1.9 cm ESV(Teich): 33.7 ml Doppler Measurements & Calculations Ao V2 max: 152.9 cm/sec LV V1 max P.3 mmHg Ao max P.4 mmHg LV V1 mean P.7 mmHg Ao V2 mean: 98.2 cm/sec LV V1 max: 90.8 cm/sec Ao mean P.4 mmHg LV V1 mean: 60.9 cm/sec Ao V2 VTI: 30.1 cm LV V1 VTI: 20.1 cm SARABJIT(I,D): 1.8 cm2 SARABJIT(V,D): 1.6 cm2 MR max siddhartha: 546.8 cm/sec SV(LVOT): 55.3 ml MR max P.6 mmHg TR max siddhartha: 273.4 cm/sec Med Peak E' Siddhartha: 4.2 cm/sec TR max P.9 mmHg Lat Peak E' Siddhartha: 5.5 cm/sec Procedure A complete two-dimensional transthoracic echocardiogram was performed (2D, M-mode, Doppler and color flow Doppler). The study was technically good with many images being of high quality. Left Ventricle The left ventricle is normal in size. Left ventricular systolic function is normal. Ejection Fraction = 60- 65%. Grade I diastolic dysfunction, (abnormal relaxation pattern). Ratio E/E'= 16. No regional wall m otion abnormalities noted. Right Ventricle The right ventricle is normal size. The right ventricular systolic function is normal. RV systolic TD I is 15 cm/s. Atria The left atrial size is normal. Right atrial size is normal. Mitral Valve The mitral valve is normal in structure and function. There is moderate mitral regurgitation. Tricuspid Valve The tricuspid valve is normal in structure and function. There is moderate tricuspid regurgitation. P ulmonary artery systolic pressure is at least 35 mmHg assuming RA pressure of 3 mmHg. Aortic Valve There is mild aortic sclerosis.;. No aortic regurgitation is present. Pulmonic Valve The pulmonic valve is not well visualized. Great Vessels The aortic root is normal size. Pericardium/Pleura There is no pericardial effusion. Interpretation Summary The left ventricle is normal in size. Left ventricular systolic function is normal. No regional wall motion abnormalities noted. Ejection Fraction = 60-65%. Grade I diastolic dysfunction, (abnormal relaxation pattern). Ratio E/E'= 16 The right ventricular systolic function is normal. The left atrial size is normal. Right atrial size is normal. There is moderate mitral regurgitation. There is moderate tricuspid regurgitation. Pulmonary artery systolic pressure is at least 35 mmHg assuming RA pressure of 3 mmHg There is mild aortic sclerosis. There is no pericardial effusion. Previous study is not available for comparison Rogelio John MD 01/25/2019 03:58 PM
[2019-01-25] MEDS: ATORVASTATIN CA 40 MG TABLET (FP) PO SCH (21:44)
[2019-01-25] MEDS ORDERED: CLOPIDOGREL BISULFATE 75 MG TABLET (FP) PO ONE (23:11)
[2019-01-25] MEDS: CLOPIDOGREL BISULFATE 75 MG TABLET (FP) PO SCH (23:33)
[2019-01-26] MEDS: LEVOTHYROXINE NA 25 MCG TABLET (FP) PO SCH (06:22)
[2019-01-26] MEDS: CLOPIDOGREL BISULFATE 75 MG TABLET (FP) PO SCH (10:38)
[2019-01-26] MEDS: LOSARTAN 50MG/HCTZ 12.5MG 1 TAB (FP) PO SCH (10:39)
--- NOTE | 2019-01-26 10:52 | PN ---
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 (short form) - Note 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: s: no chest pain, palps, dizziness. Current Medications Atorvastatin Calcium (Lipitor -) 40 mg PO HS [facility] Last Admin: 01/25/19 21:44 Dose: 40 mg Clopidogrel Bisulfate (Plavix -) 75 mg PO DAILY [facility] Last Admin: 01/26/19 10:38 Dose: 75 mg HCTZ/Losartan Potassium (Hyzaar -) 1 tab PO DAILY [facility] Last Admin: 01/26/19 10:39 Dose: 1 tab Levothyroxine Sodium (Synthroid -) 25 mcg PO DAILY@0700 [facility] Last Admin: 01/26/19 06:22 Dose: 25 mcg Vital Signs Period Temp Pulse Resp BP Sys/Espinal Pulse Ox Last 24 Hr 98.6 F-99.9 F 58-69 18-69 137-157/64-103 99 Constitutional: Yes: Well Nourished, No Distress Eyes: No: Sclera Icterus HENT: No: Nasal Congestion Neck: No: Decreased ROM Respiratory: Yes: CTA Bilaterally. No: Accessory Muscle Use Gastrointestinal: Yes: Normal Bowel Sounds. No: Distention, Hepatomegaly, Palpable Mass, Tenderness Cardiovascular: Yes: Regular Rate and Rhythm JVD: No Carotid Bruit: No PMI: Non-Displaced Heart Sounds: Yes: S1, S2. No: Gallop Murmur: No: Systolic Murmur, Diastolic Murmur Musculoskeletal: Yes: Other (No kyphosis) Extremities: No: Cool, Cyanosis Edema: No Peripheral Pulses: 2+ Left Carotid, 2+ Right Carotid, 2+ Left Doralis Pedis, 2+ Right Dorsalis Pedis Integumentary: No: Jaundice Neurological: Yes: Alert, Oriented (x3) Psychiatric: No: Agitated Assessment/Plan ECG: NSR, ? old ASMI, NSST-Ts--similar to prior when accounting for baseline wander artifact CXR: clear lungs/pleura echo: nl LV function, impaired relaxation, nl RV, mod MR, mod TR, PASP at least 35 mmHg, mild ao sclerosis tele: sinus acute CVA: -neuro input appreciated: MRI reported with left post. parietal infarct, ?? post div MCA territory but exam is more c/w mca stem territory infarct-suspect cardioembolic etiology. (was out of thrombolysis/thrombectomy window) -neurology following - rec plavix for antiplatelet -statin -bp targets per neuro -echo nl LV function, carotid dopplers no hemodynamically significant stenosis -telemetry monitoring HTN: -bp reasonably controlled -targets per neuro (acute CVA)
--- NOTE | 2019-01-26 11:16 | CONSULT ---
Admitting History and Physical - Primary Care Physician PCP: Yeimy Zhou - Admission History of Present Illness: 83F w/ a history of HTN, previous TIA (2016 w/o deficit) who presents for acute onset AMS/confusion since approximately 1200 01/24/19; as per sister she became"confused", began misnaming objects and tends to look more to left, has difficulty recognizing family members. Per neurology- Pt. with right motor/sensory deficit, right hemianopsia, possible left post. parietal infarct?? post div MCA territory but exam is more c/w mca stem territory infarct- ant. aphasia, field cut etc. Likely etiology is cardioembolic. she is out of thrombolysis/thrombectomy window CT head noted. Awaiting MRI. History Source: Medical Record Limitations to Obtaining History: Clinical Condition - Past Medical History ...: No - Smoking History Smoking history: Never smoked Have you smoked in the past 12 months: No - Alcohol/Substance Use Hx Alcohol Use: No History - Admission Reason For Visit: CVA, NSTEMI - Diagnostics X-ray: Report Reviewed CT Scan: Report Reviewed MRI: Pending - General Mental Status: Awake and Alert Attention: Intact Ability to Follow Directions: Poor (intermittent) Head/Neck Control: WFL - Hearing Hearing: Functional Hearing: Normal Hearing Aide: No With Patient: No Speech Evaluation - Communication Primary Language: [place] Communication: Yes: Simple Responses, Aphasia Oral Expression Ability: Yes: Moderate Impairment, Severe Impairment - Speech Production Apraxia: Yes Able to Make Needs Known: Yes: Moderately Impaired, Severely Impaired Intelligibility: Yes: WNL - Speech Characteristics Voice Loudness: Normal Voice Pitch: Yes: Normal Voice Phonatory-based Quality: Yes: Normal Speech Pattern: Normal Speech Clarity: < 100% Nasal Resonance: Normal Articulation: Yes: Precise - Language/Auditory Comprehension Follows: Yes: 1 Stage Simple Commands (Follows 1 stage whole body commands but not 1 stage simple commands. Impaired y/n responses. Seems to understand more than she demonstrates, occasionally responding "live with my sister' "I dont understand") Observation: Able to respond to yes/no queries: Yes (inconsistent/unreliable), Yes/No Confusion: Yes, Comprehends Conversational Speech: Yes (simple, inconsistent), Benefits from Slow Speech: Yes, Benefits from Repetiton: Yes - Language/Verbal Expression Aphasia: Yes: Fluent, Anomia, Impaired Repetition, Paraphrasic Errors, Neologisms Able to Respond to Simple Queries: Yes: Moderately Impaired, Severely Impaired Able to Communicate Wants and Needs: Yes: Moderately Impaired, Severely Impaired Functional Communication Status: Yes: Moderately Impaired, Severely Impaired Aware of Errors: No Attempts to Correct Errors: No Attention: Yes: Intact - Swallow Evaluation/Bedside Assessment Current Nutritional Intake: Regular, Thin Liquids Oral Secretions: Yes: WFL Dentition: Yes: Adequate Facial Symmetry at Rest: Facial Droop Left Against Resistance Opening: Normal Against Resistance Closing: Normal Lingual Movement: Symmetric Lingual Speed of Movement: Normal Lingual Movement Strgth Against Opposition: Normal Lingual Movement Characteristics: Normal Laryngeal Movement: Labored,delay initiation Rate of Intake: Slow/Holding Bolus Size: Small Labial Seal: WFL Chewing: Impaired (slow, reduced efficiency with scr eggs. unable to recognize/ chew cookie) Oral Prep Time: Increased Timing of Swallow: Delayed Coughing/Throat Clear: Yes (occasional with thin liquid) Recommendations - Speech Evaluation, Impression/Plan Impression: Follows 1 stage whole body commands but not 1 stage simple commands. Impaired y/n responses. Seems to understand more than she demonstrates , occasionally responding "live with my sister' "I dont understand". Produces appropriate fluent phrases but infrequent.Neologisms. Unable to name. Rare repetition. Perceptual deficits-grabbing my hand, not the cookie, attempting to "drink" from a katia cracker. Apraxia? Seems aware of communication difficulty. - Disposition [facility]charge to: [facility] - Dysphagia Impressions/Plan Swallowing Skills: Impaired Dysphagia Impressions: Mild Impairment, Risk of Aspiration *Silent aspiration: cannot be R/O at bedside Dysphagia Treatment Plan: Small Bites, Chin Tuck/Down, Clear Pocket Food, Trial Feedings, Safe Rate, 1/2 tsp. at a time, Elevate HOB during feed, Other (ssist with meals.) Recommendations: Modified Barium Swallow (if cough, congestion,fever) - Recommendations Diet Consistency: Dysphagia Minced Liquids: Thin Liquids (trial. monitor) Supplement: Ensure, Magic Cup, Ensure Pudding
[2019-01-26 14:14] VITALS: BMI 19.0
[2019-01-26] MEDS: KCL 10 MEQ IVPB 10 MEQ/100 ML INFUS.BAG IVPB SCH ×3 (18:00→22:25)
[2019-01-26] MEDS ORDERED: POTASSIUM CHLORIDE TABS 20 MEQ TABLET.ER (FP) PO ONE (21:00)
--- NOTE | 2019-01-26 21:55 | PN ---
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, Physician History of Present Illness: No new complaints - Current Medication List Current Medications: Active Medications Atorvastatin Calcium (Lipitor -) 40 mg PO HS [facility] Last Admin: 01/25/19 21:44 Dose: 40 mg Clopidogrel Bisulfate (Plavix -) 75 mg PO DAILY [facility] Last Admin: 01/26/19 10:38 Dose: 75 mg HCTZ/Losartan Potassium (Hyzaar -) 1 tab PO DAILY [facility] Last Admin: 01/26/19 10:39 Dose: 1 tab Levothyroxine Sodium (Synthroid -) 25 mcg PO DAILY@0700 [facility] Last Admin: 01/26/19 06:22 Dose: 25 mcg - Objective Vital Signs: Vital Signs Temperature 98.5 F 01/26/19 17:54 Pulse Rate 66 01/26/19 17:54 Respiratory Rate 18 01/26/19 17:54 Blood Pressure 145/71 01/26/19 17:54 O2 Sat by Pulse Oximetry (%) 99 01/26/19 09:00 Neck: Yes: WNL, Supple Cardiovascular: Yes: WNL, Regular Rate and Rhythm Respiratory: Yes: WNL, Regular, CTA Bilaterally Gastrointestinal: Yes: WNL, Normal Bowel Sounds, Soft Musculoskeletal: Yes: WNL Extremities: Yes: WNL Edema: No Neurological: Yes: Aphasia Labs: CBC, BMP 01/25/19 05:50 01/25/19 05:50 INR, PTT INR 1.01 (0.83-1.09) 01/24/19 13:15 Problem List - Problems (1) CVA (cerebral vascular accident) Assessment/Plan: Monitor BP Neuro/cardio consults noted Carotid doppler did not show significant stenosis MRI brain shgowed: subacute cerebellar infarcts PT Code(s): I63.9 - CEREBRAL INFARCTION, UNSPECIFIED (2) HTN (hypertension) Assessment/Plan: Cont losartan Code(s): I10 - ESSENTIAL (PRIMARY) HYPERTENSION (3) Hypothyroidism Assessment/Plan: Cont levothyroxine Code(s): E03.9 - HYPOTHYROIDISM, UNSPECIFIED (4) Elevated troponin Assessment/Plan: As per cardio Code(s): R74.8 - ABNORMAL LEVELS OF OTHER SERUM ENZYMES
[2019-01-26] MEDS: ATORVASTATIN CA 40 MG TABLET (FP) PO SCH (22:26)
[2019-01-27] MEDS: LEVOTHYROXINE NA 25 MCG TABLET (FP) PO SCH (06:33)
[2019-01-27 08:03] LABS: BASO % 0.4 % (0-2.0); EOS % 1.5 % (0-4.5); HEMATOCRIT 33.8 % (32.4-45.2); HEMOGLOBIN 10.9 GM/dL (10.7-15.3); LYMPH % 19.8 % (8-40); MCHC 32.3 g/dl (32.0-36.0); MEAN CELL VOLUME 57.7 fl (80-96); MONO % 8.4 % (3.8-10.2); NEUT % 69.9 % (42.8-82.8); RBC 5.86 M/mm3 (3.60-5.2); RDW 16.7 % (11.6-15.6); WHITE BLOOD COUNT 7.3 K/mm3 (4.0-10.0)
[2019-01-27 08:12] LABS: ALBUMIN 2.6 g/dl (3.4-5.0); ALK PHOS 58 U/L (45-117); ANION GAP 6 MMOL/L (8-16); BILIRUBIN,TOTAL 0.7 mg/dL (0.2-1); BLOOD UREA NITROGEN 11 mg/dL (7-18); CHLORIDE 99 mmol/L (98-107); CO2 29 mmol/L (21-32); CREATININE 0.4 mg/dL (0.55-1.3); GLUCOSE,RANDOM 85 mg/dL (74-106); POTASSIUM 3.2 mmol/L (3.5-5.1); SGOT/AST 46 U/L (15-37); SGPT/ALT 25 U/L (13-61); SODIUM 133 mmol/L (136-145)
[2019-01-27 08:26] LABS: MCH 18.7 pg (25.7-33.7)
[2019-01-27 08:59] LABS: MEAN PLT VOLUME 10.4 fl (7.5-11.1); PLATELET COUNT 143 K/MM3 (134-434)
--- NOTE | 2019-01-27 09:17 | PN ---
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 (short form) - Note 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: 83F w/ a history of HTN, previous TIA (2016 w/o deficit) who presents for acute onset AMS/confusion since approximately 1200 01/24/19; as per sister she became"confused", began misnaming objects and tends to look more to left, has difficulty recognizing family members. FU : continues to be aphasic MRI MRA reviewed ASA allergy TEST: Doppler Impression: Mild intimal thickening at the common carotid bifurcation, bilaterally with a tiny plaque on the right without evidence of hemodynamically significant stenosis, bilaterally. MRI HPI : CLINICAL INFORMATION GIVEN: stroke The exam consists of sagittal , coronal and transaxial images obtained utilizing fast spin-echo, fast spin-echo FLAIR, susceptibility-weighted and diffusion weighted spin-echo echo - planar pulse sequences. Acute moderate to large cortical infarcts are noted involving the left occipital/temporal lobe medially and also the left parietal lobe. There is resultant minimal to mild rightward midline displacement. Mild extrinsic indentation is seen upon the left lateral ventricle due to infarct swelling. On susceptibility weighted imaging only, minimal acute petechial blood is noted within the acute left parietal cortical infarct. A punctate acute left thalamic infarct is seen. Small acute right posterior temporal and right posterior parietal cortical infarcts are noted. There is a probable small acute infarct within the posterior inferior aspect of the left cerebellar hemisphere. In comparison to a previous MRI exam of 12/18/2015 interval development of a moderate chronic right parietal cortical infarct is seen. A small amount of hemosiderin is seen within this chronic infarct consistent with the sequela of a previous small amount of petechial bleeding. Note is again made of a small chronic right posterior frontal cortical infarct. There is no extra-axial fluid collection. No obstructive hydrocephalus is noted. Signal void is seen within the intracranial vertebral and internal carotid arteries as well as the basilar artery consistent with vessel patency FU : remains to have a mixed aphasic , receptive >expressive MRI reviewed TESTS: MRI IMPRESSION: Acute bilateral cerebral infarcts are noted as discussed above. A minimal to small amount of acute petechial blood is seen within the acute left parietal cortical infarct Probable small acute left cerebellar infarct. 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 MRA Impression: No extracranial carotid artery stenosis is seen. The extracranial vertebral arteries are patent bilaterally with physiologic flow direction. A mildly truncated appearance of the left posterior cerebral artery is noted distally consistent with at least partial occlusion. Note is also made of a truncated appearance of several right-sided intrasylvian and suprasylvian branches consistent with occlusion. - Alcohol/Substance Use Hx Alcohol Use: No - Smoking History Smoking history: Never smoked Have you smoked in the past 12 months: No Home Medications - Allergies Allergies/Adverse Reactions: Allergies Allergy/AdvReac Type Severity Reaction Status Date / Time aspirin Allergy Unknown Verified 01/24/19 11:58 - Home Medications Home Medications: Ambulatory Orders Levothyroxine Sodium [Unithroid] 25 mcg PO DAILY 01/21/16 Losartan 50Mg/Hctz 12.5MG [Hyzaar -] 1 tab PO DAILY 01/24/19 Physical Exam-Neuro Vital Signs: Vital Signs Temperature 97.8 F 01/27/19 06:00 Pulse Rate 62 01/27/19 06:00 Respiratory Rate 17 01/27/19 06:00 Blood Pressure 129/66 01/27/19 06:00 O2 Sat by Pulse Oximetry (%) 97 01/26/19 21:00 Labs: CBCD WBC 8.0 K/mm3 (4.0-10.0) 01/25/19 05:50 RBC 5.37 M/mm3 (3.60-5.2) H 01/25/19 05:50 Hgb 10.4 GM/dL (10.7-15.3) L 01/25/19 05:50 Hct 31.3 % (32.4-45.2) L 01/25/19 05:50 MCV 58.4 fl (80-96) L 01/25/19 05:50 MCHC 33.0 g/dl (32.0-36.0) 01/25/19 05:50 RDW 16.7 % (11.6-15.6) H 01/25/19 05:50 Plt Count 154 K/MM3 (134-434) 01/25/19 05:50 MPV 10.6 fl (7.5-11.1) 01/25/19 05:50 CMP Sodium 139 mmol/L (136-145) 01/25/19 05:50 Potassium 3.1 mmol/L (3.5-5.1) L 01/25/19 05:50 Chloride 103 mmol/L (98-107) 01/25/19 05:50 Carbon Dioxide 27 mmol/L (21-32) 01/25/19 05:50 Anion Gap 9 MMOL/L (8-16) 01/25/19 05:50 BUN 11 mg/dL (7-18) 01/25/19 05:50 Creatinine 0.4 mg/dL (0.55-1.3) L 01/25/19 05:50 Creat Clearance w eGFR 152.44 (>60) 01/25/19 05:50 Calcium 8.0 mg/dL (8.5-10.1) L 01/25/19 05:50 Total Bilirubin 0.6 mg/dL (0.2-1) 01/25/19 05:50 AST 45 U/L (15-37) H 01/25/19 05:50 ALT 21 U/L (13-61) 01/25/19 05:50 Alkaline Phosphatase 57 U/L (45-117) 01/25/19 05:50 Total Protein 5.7 g/dl (6.4-8.2) L 01/25/19 05:50 Albumin 2.7 g/dl (3.4-5.0) L 01/25/19 05:50 - Neuro Exam Level Of Consciousness: Yes: Alert (unable to test further due to language d/o) Eyes: Yes: PERRL, Right Hemianopsia Speech: Wernicke's Aphasia (Language-impaired comprehension, non-fluent speech- mixed motor/sensory aphasia) Dominant Hand: Right Mini Mental Exam: + prosopagnosia, follows 1 step commands only Cranial Nerves II-XII Intact: No (diminished right nlf) Gag: Present DTR's: 1+ Left Brachioradialis, 1+ Right Brachioradialis, 1+ Left Achilles, 1+ Right Achilles (trace bilat knees), 2+ Left Bicep, 2+ Right Bicep, 2+ Left Tricep, 2+ Right Tricep Babinski: Present (right) Response to light touch: Abnormal Response to pain prick: Abnormal (diminished touch/pin sensation right arm/leg) Coordination: Normal: Finger to Nose (unable to test) Motor Strength: 2/5: Right Leg, 4/5: Right Arm, 5/5: Left Arm, Left Leg Imaging - Results MRI: Report Reviewed (Reported with left post. parietal infarct) Assessment/Plan Pt. with right motor/sensory deficit, right hemianopsia, and aphasia MRI shows multiple acute infarc ts L GROUP CIO, L MCA, small infarct R GROUP CIO and L cerbellum--highly suspicious for cardioembolic events , less likely vasculitis no HX of DM, Plavix 75mg daily ( ?ASa allergy) , card-consult/echo--REC NEERAJ holter --will need LOOP recorder and will discuss with cardiology possibility of empiric AC carotid ultrasound (-) check ESR, BRIJESH, CRP, ANTI DS DNA PT and ST consult DR BERRY
[2019-01-27] MEDS: CLOPIDOGREL BISULFATE 75 MG TABLET (FP) PO SCH (10:02)
[2019-01-27] MEDS: LOSARTAN 50MG/HCTZ 12.5MG 1 TAB (FP) PO SCH (10:03)
[2019-01-27 10:20] LABS: PLATELET ESTIMATE DECREASED
--- NOTE | 2019-01-27 11:09 | PN ---
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 (short form) - Note 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: s: no chest pain, palps, dizziness. Current Medications Atorvastatin Calcium (Lipitor -) 40 mg PO HS [facility] Last Admin: 01/26/19 22:26 Dose: 40 mg Clopidogrel Bisulfate (Plavix -) 75 mg PO DAILY [facility] Last Admin: 01/27/19 10:02 Dose: 75 mg HCTZ/Losartan Potassium (Hyzaar -) 1 tab PO DAILY [facility] Last Admin: 01/27/19 10:03 Dose: 1 tab Levothyroxine Sodium (Synthroid -) 25 mcg PO DAILY@0700 [facility] Last Admin: 01/27/19 06:33 Dose: 25 mcg Vital Signs Period Temp Pulse Resp BP Sys/Espinal Pulse Ox Last 24 Hr 97.8 F-99.8 F 62-70 17-18 129-154/66-88 97 Constitutional: Yes: Well Nourished, No Distress Eyes: No: Sclera Icterus HENT: No: Nasal Congestion Neck: No: Decreased ROM Respiratory: Yes: CTA Bilaterally. No: Accessory Muscle Use Gastrointestinal: Yes: Normal Bowel Sounds. No: Distention, Hepatomegaly, Palpable Mass, Tenderness Cardiovascular: Yes: Regular Rate and Rhythm JVD: No Carotid Bruit: No PMI: Non-Displaced Heart Sounds: Yes: S1, S2. No: Gallop Murmur: No: Systolic Murmur, Diastolic Murmur Musculoskeletal: Yes: Other (No kyphosis) Extremities: No: Cool, Cyanosis Edema: No Peripheral Pulses: 2+ Left Carotid, 2+ Right Carotid, 2+ Left Doralis Pedis, 2+ Right Dorsalis Pedis Integumentary: No: Jaundice Neurological: Yes: Alert, Oriented (x3) Psychiatric: No: Agitated Assessment/Plan ECG: NSR, ? old ASMI, NSST-Ts--similar to prior when accounting for baseline wander artifact CXR: clear lungs/pleura echo: nl LV function, impaired relaxation, nl RV, mod MR, mod TR, PASP at least 35 mmHg, mild ao sclerosis tele: sinus acute CVA: -neuro input appreciated: MRI reported with left post. parietal infarct, ?? post div MCA territory but exam is more c/w mca stem territory infarct-suspect cardioembolic etiology. (was out of thrombolysis/thrombectomy window) -neurology following - rec plavix for antiplatelet -statin -bp targets per neuro -echo nl LV function, carotid dopplers no hemodynamically significant stenosis -telemetry monitoring - benign findings. outpatient loop monitor -NEERAJ HTN: -bp reasonably controlled -targets per neuro (acute CVA)
--- NOTE | 2019-01-27 13:07 | PN ---
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 Pt demonstrates intermittent diffculty following 1 stage commands and rsponding to simple questions. Responses are tangential, perseverative with neologisms an anomia with intermittent awareness Tolerating Dys chopped/hin liquid. 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 Selected Entries 01/27/19 01/27/19 01/27/19 02:00 06:00 09:00 Breakfast Diet Tolerated Lunch Temperature 98.3 F 97.8 F 97.7 F 01/27/19 01/27/19 11:20 12:40 Breakfast 75% Diet Tolerated Well Lunch 75% Temperature Laboratory Tests 01/27/19 06:29 WBC 7.3 REC add 1-2 soft items to dys chopped diet Excellent candidate for acute rehab
[2019-01-27] MEDS: KCL 10 MEQ IVPB 10 MEQ/100 ML INFUS.BAG IVPB SCH ×2 (18:52→23:00)
--- NOTE | 2019-01-27 20:03 | PN ---
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, Physician History of Present Illness: No new complaints - Current Medication List Current Medications: Active Medications Atorvastatin Calcium (Lipitor -) 40 mg PO HS [facility] Last Admin: 01/26/19 22:26 Dose: 40 mg Clopidogrel Bisulfate (Plavix -) 75 mg PO DAILY [facility] Last Admin: 01/27/19 10:02 Dose: 75 mg HCTZ/Losartan Potassium (Hyzaar -) 1 tab PO DAILY [facility] Last Admin: 01/27/19 10:03 Dose: 1 tab Potassium Chloride (Potassium Chloride 10 Meq Premix Ivpb -) 10 meq in 100 mls @ 100 mls/hr IVPB Q60M [facility] Stop: 01/27/19 21:29 Last Admin: 01/27/19 18:52 Dose: 100 mls/hr Levothyroxine Sodium (Synthroid -) 25 mcg PO DAILY@0700 [facility] Last Admin: 01/27/19 06:33 Dose: 25 mcg - Objective Vital Signs: Vital Signs Temperature 98.8 F 01/27/19 18:00 Pulse Rate 75 01/27/19 18:00 Respiratory Rate 20 01/27/19 18:00 Blood Pressure 115/51 L 01/27/19 18:00 O2 Sat by Pulse Oximetry (%) 98 01/27/19 09:00 Neck: Yes: WNL, Supple Cardiovascular: Yes: WNL, Regular Rate and Rhythm Respiratory: Yes: WNL, Regular, CTA Bilaterally Gastrointestinal: Yes: WNL, Normal Bowel Sounds Neurological: Yes: Aphasia ...Motor Strength: RUE, RLE (Rt hemiparesis) Labs: CBC, BMP 01/27/19 06:29 01/27/19 06:29 INR, PTT INR 1.01 (0.83-1.09) 01/24/19 13:15 Problem List - Problems (1) CVA (cerebral vascular accident) Assessment/Plan: Monitor BP Ct scan head showed acute/subacute parietal infarct MRI showed acute B/L cerebral infarcts PT Neuro/cardio consults noted Code(s): I63.9 - CEREBRAL INFARCTION, UNSPECIFIED (2) HTN (hypertension) Assessment/Plan: Cont losartan/hctz Code(s): I10 - ESSENTIAL (PRIMARY) HYPERTENSION (3) Hypothyroidism Assessment/Plan: Cont levothyroxine Code(s): E03.9 - HYPOTHYROIDISM, UNSPECIFIED (4) Elevated troponin Code(s): R74.8 - ABNORMAL LEVELS OF OTHER SERUM ENZYMES
[2019-01-27] MEDS: ATORVASTATIN CA 40 MG TABLET (FP) PO SCH (22:00)
[2019-01-28] MEDS ORDERED: KCL 10 MEQ IVPB 10 MEQ/100 ML INFUS.BAG IVPB SCH (04:45)
[2019-01-28] MEDS: LEVOTHYROXINE NA 25 MCG TABLET (FP) PO SCH (06:23)
[2019-01-28 07:45] LABS: BASO % 0.5 % (0-2.0); EOS % 2.9 % (0-4.5); HEMOGLOBIN 10.9 GM/dL (10.7-15.3); LYMPH % 18.7 % (8-40); MCHC 32.1 g/dl (32.0-36.0); MEAN CELL VOLUME 57.9 fl (80-96); MEAN PLT VOLUME 9.6 fl (7.5-11.1); MONO % 7.2 % (3.8-10.2); NEUT % 70.7 % (42.8-82.8); PLATELET COUNT 146 K/MM3 (134-434); RBC 5.87 M/mm3 (3.60-5.2); RDW 16.7 % (11.6-15.6); WHITE BLOOD COUNT 7.2 K/mm3 (4.0-10.0)
[2019-01-28 08:08] LABS: ALBUMIN 2.5 g/dl (3.4-5.0); ALK PHOS 55 U/L (45-117); ANION GAP 7 MMOL/L (8-16); BILIRUBIN,TOTAL 0.5 mg/dL (0.2-1); BLOOD UREA NITROGEN 11 mg/dL (7-18); CALCIUM 7.5 mg/dL (8.5-10.1); CHLORIDE 101 mmol/L (98-107); CO2 27 mmol/L (21-32); CREATININE 0.4 mg/dL (0.55-1.3); GLUCOSE,RANDOM 99 mg/dL (74-106); POTASSIUM 3.6 mmol/L (3.5-5.1); SGOT/AST 39 U/L (15-37); SGPT/ALT 26 U/L (13-61); SODIUM 135 mmol/L (136-145); TOT PROT 5.8 g/dl (6.4-8.2)
[2019-01-28 08:35] LABS: MCH 18.6 pg (25.7-33.7)
[2019-01-28] MEDS: LOSARTAN 50MG/HCTZ 12.5MG 1 TAB (FP) PO SCH (09:52)
[2019-01-28] MEDS: CLOPIDOGREL BISULFATE 75 MG TABLET (FP) PO SCH (09:52)
[2019-01-28 11:09] LABS: ANISOCYTOSIS 1+; OVALOCYTE 2+; PLATELET ESTIMATE DECREASED; TARGET CELLS 1+
--- NOTE | 2019-01-28 11:49 | PN ---
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 Inonsitent awareness of difficulty. Speaking fluently , with anomia and word errors. Slow to process/respond with distractibility. Unable to name. Perceptual deficits/apraxia, with difficulty taking water bottle , unable to put to her lips upon command. Reportedly pt fed herself pudding. Pt was able to hold and self feed a katia cracker with good ability to bite/ masticate/swallow although slow and tentative. Excellent candidate for acute rehab for PT/OT/Speech. Rec; Upgrade diet to reg chopped and 1-2 items. Add finger foods to encourage self feeding.
--- NOTE | 2019-01-28 11:49 | PN ---
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 (short form) - Note 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: 83F w/ a history of HTN, previous TIA (2016 w/o deficit) who presents for acute onset AMS/confusion since approximately 1200 01/24/19; as per sister she became"confused", began misnaming objects and tends to look more to left, has difficulty recognizing family members. FU : continues to have mixed aphasic , although some improvement today MRI MRA reviewed ASA allergy spoke to cardiology spoke to family TEST: Doppler Impression: Mild intimal thickening at the common carotid bifurcation, bilaterally with a tiny plaque on the right without evidence of hemodynamically significant stenosis, bilaterally. MRI HPI : CLINICAL INFORMATION GIVEN: stroke The exam consists of sagittal , coronal and transaxial images obtained utilizing fast spin-echo, fast spin-echo FLAIR, susceptibility-weighted and diffusion weighted spin-echo echo - planar pulse sequences. Acute moderate to large cortical infarcts are noted involving the left occipital/temporal lobe medially and also the left parietal lobe. There is resultant minimal to mild rightward midline displacement. Mild extrinsic indentation is seen upon the left lateral ventricle due to infarct swelling. On susceptibility weighted imaging only, minimal acute petechial blood is noted within the acute left parietal cortical infarct. A punctate acute left thalamic infarct is seen. Small acute right posterior temporal and right posterior parietal cortical infarcts are noted. There is a probable small acute infarct within the posterior inferior aspect of the left cerebellar hemisphere. In comparison to a previous MRI exam of 12/18/2015 interval development of a moderate chronic right parietal cortical infarct is seen. A small amount of hemosiderin is seen within this chronic infarct consistent with the sequela of a previous small amount of petechial bleeding. Note is again made of a small chronic right posterior frontal cortical infarct. There is no extra-axial fluid collection. No obstructive hydrocephalus is noted. Signal void is seen within the intracranial vertebral and internal carotid arteries as well as the basilar artery consistent with vessel patency - Alcohol/Substance Use Hx Alcohol Use: No - Smoking History Smoking history: Never smoked Have you smoked in the past 12 months: No Home Medications - Allergies Allergies/Adverse Reactions: Allergies Allergy/AdvReac Type Severity Reaction Status Date / Time aspirin Allergy Unknown Verified 01/24/19 11:58 - Home Medications Home Medications: Ambulatory Orders Levothyroxine Sodium [Unithroid] 25 mcg PO DAILY 01/21/16 Losartan 50Mg/Hctz 12.5MG [Hyzaar -] 1 tab PO DAILY 01/24/19 Physical Exam-Neuro Vital Signs: Vital Signs Temperature 97.5 F L 01/28/19 10:00 Pulse Rate 64 01/28/19 10:00 Respiratory Rate 22 H 01/28/19 10:00 Blood Pressure 145/69 01/28/19 10:00 O2 Sat by Pulse Oximetry (%) 98 01/27/19 21:00 Labs: CBCD WBC 8.0 K/mm3 (4.0-10.0) 01/25/19 05:50 RBC 5.37 M/mm3 (3.60-5.2) H 01/25/19 05:50 Hgb 10.4 GM/dL (10.7-15.3) L 01/25/19 05:50 Hct 31.3 % (32.4-45.2) L 01/25/19 05:50 MCV 58.4 fl (80-96) L 01/25/19 05:50 MCHC 33.0 g/dl (32.0-36.0) 01/25/19 05:50 RDW 16.7 % (11.6-15.6) H 01/25/19 05:50 Plt Count 154 K/MM3 (134-434) 01/25/19 05:50 MPV 10.6 fl (7.5-11.1) 01/25/19 05:50 CMP Sodium 139 mmol/L (136-145) 01/25/19 05:50 Potassium 3.1 mmol/L (3.5-5.1) L 01/25/19 05:50 Chloride 103 mmol/L (98-107) 01/25/19 05:50 Carbon Dioxide 27 mmol/L (21-32) 01/25/19 05:50 Anion Gap 9 MMOL/L (8-16) 01/25/19 05:50 BUN 11 mg/dL (7-18) 01/25/19 05:50 Creatinine 0.4 mg/dL (0.55-1.3) L 01/25/19 05:50 Creat Clearance w eGFR 152.44 (>60) 01/25/19 05:50 Calcium 8.0 mg/dL (8.5-10.1) L 01/25/19 05:50 Total Bilirubin 0.6 mg/dL (0.2-1) 01/25/19 05:50 AST 45 U/L (15-37) H 01/25/19 05:50 ALT 21 U/L (13-61) 01/25/19 05:50 Alkaline Phosphatase 57 U/L (45-117) 01/25/19 05:50 Total Protein 5.7 g/dl (6.4-8.2) L 01/25/19 05:50 Albumin 2.7 g/dl (3.4-5.0) L 01/25/19 05:50 - Neuro Exam Level Of Consciousness: Yes: Alert (unable to test further due to language d/o) Eyes: Yes: PERRL, Right Hemianopsia Speech: Wernicke's Aphasia (Language-impaired comprehension, non-fluent speech- mixed motor/sensory aphasia) Dominant Hand: Right Mini Mental Exam: + prosopagnosia, follows 1 step commands only Cranial Nerves II-XII Intact: No (diminished right nlf) Gag: Present DTR's: 1+ Left Brachioradialis, 1+ Right Brachioradialis, 1+ Left Achilles, 1+ Right Achilles (trace bilat knees), 2+ Left Bicep, 2+ Right Bicep, 2+ Left Tricep, 2+ Right Tricep Babinski: Present (right) Response to light touch: Abnormal Response to pain prick: Abnormal (diminished touch/pin sensation right arm/leg) Coordination: Normal: Finger to Nose (unable to test) Motor Strength: 2/5: Right Leg, 4/5: Right Arm, 5/5: Left Arm, Left Leg Imaging - Results MRI: Report Reviewed (Reported with left post. parietal infarct) Assessment/Plan Pt. 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
--- NOTE | 2019-01-28 14:56 | PN ---
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 (short form) - Note 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: s: no chest pain, palps, dizziness. Current Medications Atorvastatin Calcium (Lipitor -) 40 mg PO HS [facility] Last Admin: 01/27/19 22:00 Dose: Not Given Clopidogrel Bisulfate (Plavix -) 75 mg PO DAILY [facility] Last Admin: 01/28/19 09:52 Dose: 75 mg HCTZ/Losartan Potassium (Hyzaar -) 1 tab PO DAILY [facility] Last Admin: 01/28/19 09:52 Dose: 1 tab Levothyroxine Sodium (Synthroid -) 25 mcg PO DAILY@0700 [facility] Last Admin: 01/28/19 06:23 Dose: 25 mcg Vital Signs Period Temp Pulse Resp BP Sys/Espinal Pulse Ox Last 24 Hr 97.5 F-99 F 64-75 18-22 115-148/51-93 98 Constitutional: Yes: Well Nourished, No Distress Eyes: No: Sclera Icterus HENT: No: Nasal Congestion Neck: No: Decreased ROM Respiratory: Yes: CTA Bilaterally. No: Accessory Muscle Use Gastrointestinal: Yes: Normal Bowel Sounds. No: Distention, Hepatomegaly, Palpable Mass, Tenderness Cardiovascular: Yes: Regular Rate and Rhythm JVD: No Carotid Bruit: No PMI: Non-Displaced Heart Sounds: Yes: S1, S2. No: Gallop Murmur: No: Systolic Murmur, Diastolic Murmur Musculoskeletal: Yes: Other (No kyphosis) Extremities: No: Cool, Cyanosis Edema: No Peripheral Pulses: 2+ Left Carotid, 2+ Right Carotid, 2+ Left Doralis Pedis, 2+ Right Dorsalis Pedis Integumentary: No: Jaundice Neurological: Yes: Alert, Oriented (x3) Psychiatric: No: Agitated Assessment/Plan ECG: NSR, ? old ASMI, NSST-Ts--similar to prior when accounting for baseline wander artifact CXR: clear lungs/pleura echo: nl LV function, impaired relaxation, nl RV, mod MR, mod TR, PASP at least 35 mmHg, mild ao sclerosis tele: sinus acute CVA: -neuro input appreciated: MRI reported with left post. parietal infarct, ?? post div MCA territory but exam is more c/w mca stem territory infarct-suspect cardioembolic etiology. (was out of thrombolysis/thrombectomy window) -neurology following - rec plavix for antiplatelet -statin -bp targets per neuro -echo nl LV function, carotid dopplers no hemodynamically significant stenosis -telemetry monitoring - benign findings. outpatient loop monitor -NEERAJ planned for tomorrow - d/w Dr. Ponce, likely cardioembolic etiology. Will defer starting AC pending findings of NEERAJ, loop monitor. HTN: -bp reasonably controlled -targets per neuro (acute CVA)
[2019-01-28] MEDS: ATORVASTATIN CA 40 MG TABLET (FP) PO SCH (21:09)
--- NOTE | 2019-01-28 23:33 | PN ---
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, Physician History of Present Illness: No new complaints - Current Medication List Current Medications: Active Medications Atorvastatin Calcium (Lipitor -) 40 mg PO HS [facility] Last Admin: 01/28/19 21:09 Dose: 40 mg Clopidogrel Bisulfate (Plavix -) 75 mg PO DAILY [facility] Last Admin: 01/28/19 09:52 Dose: 75 mg HCTZ/Losartan Potassium (Hyzaar -) 1 tab PO DAILY [facility] Last Admin: 01/28/19 09:52 Dose: 1 tab Levothyroxine Sodium (Synthroid -) 25 mcg PO DAILY@0700 [facility] Last Admin: 01/28/19 06:23 Dose: 25 mcg - Objective Vital Signs: Vital Signs Temperature 97.7 F 01/28/19 21:00 Pulse Rate 90 01/28/19 21:00 Respiratory Rate 17 01/28/19 21:00 Blood Pressure 117/57 L 01/28/19 21:00 O2 Sat by Pulse Oximetry (%) 98 01/28/19 21:00 Neck: Yes: WNL, Supple Cardiovascular: Yes: WNL, Regular Rate and Rhythm Respiratory: Yes: WNL, Regular, CTA Bilaterally Gastrointestinal: Yes: WNL, Normal Bowel Sounds, Soft Labs: CBC, BMP 01/28/19 06:38 01/28/19 06:38 INR, PTT INR 1.01 (0.83-1.09) 01/24/19 13:15 Problem List - Problems (1) CVA (cerebral vascular accident) Assessment/Plan: Monitor BP Ct scan head showed acute/subacute parietal infarct MRI showed acute B/L cerebral infarcts PT Neuro/cardio consults noted Code(s): I63.9 - CEREBRAL INFARCTION, UNSPECIFIED (2) HTN (hypertension) Assessment/Plan: Cont losartan/hctz Code(s): I10 - ESSENTIAL (PRIMARY) HYPERTENSION (3) Hypothyroidism Assessment/Plan: Cont levothyroxine Code(s): E03.9 - HYPOTHYROIDISM, UNSPECIFIED (4) Elevated troponin Assessment/Plan: As per cardio Code(s): R74.8 - ABNORMAL LEVELS OF OTHER SERUM ENZYMES
[2019-01-29] MEDS: LEVOTHYROXINE NA 25 MCG TABLET (FP) PO SCH (06:11)
--- NOTE | 2019-01-29 09:07 | PN ---
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, Physician Chief Complaint: no distress TELE: NSR, sinus tach - Current Medication List Current Medications: Active Medications Atorvastatin Calcium (Lipitor -) 40 mg PO HS [facility] Last Admin: 01/28/19 21:09 Dose: 40 mg Clopidogrel Bisulfate (Plavix -) 75 mg PO DAILY [facility] Last Admin: 01/28/19 09:52 Dose: 75 mg HCTZ/Losartan Potassium (Hyzaar -) 1 tab PO DAILY [facility] Last Admin: 01/28/19 09:52 Dose: 1 tab Levothyroxine Sodium (Synthroid -) 25 mcg PO DAILY@0700 [facility] Last Admin: 01/29/19 06:11 Dose: 25 mcg - Objective Vital Signs: Vital Signs Temperature 98.4 F 01/29/19 06:00 Pulse Rate 61 01/29/19 06:00 Respiratory Rate 17 01/29/19 06:00 Blood Pressure 138/61 01/29/19 06:00 O2 Sat by Pulse Oximetry (%) 98 01/28/19 21:00 Constitutional: Yes: Calm Cardiovascular: Yes: Regular Rate and Rhythm Respiratory: Yes: CTA Bilaterally Gastrointestinal: Yes: Soft Edema: No Labs: CBC, BMP 01/28/19 06:38 01/28/19 06:38 INR, PTT INR 1.01 (0.83-1.09) 01/24/19 13:15 - ....Imaging EKG: Image Reviewed Assessment/Plan Assessment/Plan ECG: NSR, ? old ASMI, NSST-Ts--similar to prior when accounting for baseline wander artifact CXR: clear lungs/pleura echo: nl LV function, impaired relaxation, nl RV, mod MR, mod TR, PASP at least 35 mmHg, mild ao sclerosis tele: sinus 1. Acute CVA: -neuro input appreciated: MRI reported with left post. parietal infarct, ?? post div MCA territory but exam is more c/w mca stem territory infarct-suspect cardioembolic etiology. (was out of thrombolysis/thrombectomy window) -neurology following - rec plavix for antiplatelet -statin -bp targets per neuro -echo nl LV function, carotid dopplers no hemodynamically significant stenosis -telemetry monitoring - benign findings. outpatient loop monitor -NEERAJ planned today 2. HTN: -bp reasonably controlled -targets per neuro (acute CVA)
[2019-01-29] MEDS: LOSARTAN 50MG/HCTZ 12.5MG 1 TAB (FP) PO SCH (09:50)
[2019-01-29] MEDS: CLOPIDOGREL BISULFATE 75 MG TABLET (FP) PO SCH (09:50)
--- NOTE | 2019-01-29 12:41 | PN ---
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 Excellent candidate for acute rehab for PT/OT/Speech. Rec: Upgrade diet to reg chopped and 1-2 items. Add finger foods to encourage self feeding.
[2019-01-29] MEDS ORDERED: LIDOCAINE VISCOUS 2% ORAL/TOP 20 ML UNIT-DOSE CUP ONE (14:16)
[2019-01-29] MEDS ORDERED: PROPOFOL 20 ML ONE ×3 (14:29)
--- NOTE | 2019-01-29 15:08 | PROC ---
Transesophageal Echocardiogram - Pre-Procedure Risks and Benefits Explained: Yes Consent on Chart: Yes - Procedure Procedure Done: in Endoscopy Suite Medication given: propofol Findings: No thrombus or other cardiac etiology of cva noted. Remarks: Pt tolerated procedure well, no complications.
--- NOTE | 2019-01-29 15:30 | PN ---
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, Physician - Current Medication List Current Medications: Active Medications Atorvastatin Calcium (Lipitor -) 40 mg PO HS [facility] Last Admin: 01/28/19 21:09 Dose: 40 mg Clopidogrel Bisulfate (Plavix -) 75 mg PO DAILY [facility] Last Admin: 01/29/19 09:50 Dose: 75 mg HCTZ/Losartan Potassium (Hyzaar -) 1 tab PO DAILY [facility] Last Admin: 01/29/19 09:50 Dose: 1 tab Levothyroxine Sodium (Synthroid -) 25 mcg PO DAILY@0700 [facility] Last Admin: 01/29/19 06:11 Dose: 25 mcg - Objective Vital Signs: Vital Signs Temperature 98 F 01/29/19 15:00 Pulse Rate 56 L 01/29/19 15:15 Respiratory Rate 15 01/29/19 15:15 Blood Pressure 93/55 L 01/29/19 15:15 O2 Sat by Pulse Oximetry (%) 100 01/29/19 15:15 Constitutional: Yes: No Distress HENT: Yes: Atraumatic Neck: Yes: Supple Cardiovascular: Yes: Regular Rate and Rhythm Respiratory: Yes: CTA Bilaterally Gastrointestinal: Yes: Normal Bowel Sounds Extremities: Yes: WNL Edema: No Peripheral Pulses WNL: Yes Neurological: Yes: Alert Labs: CBC, BMP 01/28/19 06:38 01/28/19 06:38 INR, PTT INR 1.01 (0.83-1.09) 01/24/19 13:15 Problem List - Problems (1) CVA (cerebral vascular accident) Assessment/Plan: pt eval on plavix lipitor Code(s): I63.9 - CEREBRAL INFARCTION, UNSPECIFIED (2) Elevated troponin Code(s): R74.8 - ABNORMAL LEVELS OF OTHER SERUM ENZYMES (3) HTN (hypertension) Assessment/Plan: monitor on meds Code(s): I10 - ESSENTIAL (PRIMARY) HYPERTENSION (4) Hypothyroidism Assessment/Plan: on meds Code(s): E03.9 - HYPOTHYROIDISM, UNSPECIFIED (5) NSTEMI (non-ST elevated myocardial infarction) Code(s): I21.4 - NON-ST ELEVATION (NSTEMI) MYOCARDIAL INFARCTION Assessment/Plan COVERING FOR DR RAMAN THOMAS
--- NOTE | 2019-01-29 15:53 | ECHO ---
Version: 1 Study ID: [id number] Institution Name Institution Address Institution Address Line #2 Telephone & email Name: SAMANTHA GIBBONS Study Date: 01/29/2019, 2:36 PM : 1935 (MM/DD/YYYY) Gender: Female Age: 83 Years Ethnicity: DALIA Summary Statements The left ventricular size, thickness and function are normal The right ventricle is normal in size and function. 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 There is mild mitral regurgitation. Procedure: A 2D transesophageal echocardiogram with Doppler and color flow Doppler was performed. Informed cons ent for Transesophageal Echocardiogram, and use of a contrast agent as needed, was obtained prior to the pro cedure. The patient was brought to the endoscopy suite in a fasting state. An intravenous line was placed. A topical anesthetic agent was used for oropharangeal anesthesia. A bite block was inserted. IV concious sedat ion was administered using propafol. A multifrequency, multiplane transesopheageal echocardiographic endosco pe was inserted and manipulated in the standard fashion to achieve multiplane views. The transesophageal pr obe was passed without difficulty. The usual views were obtained; basal, mid-esophageal, transgastric and ao rtic views. The patient's vital signs, including blood pressure, heart rate, pulse oximetry and cardiac r hythm were monitored throughout the procedure and remained stable. The patient tolerated the procedure wel l without evidence of orophangeal or esophageal trauma. Contrast injection with agitated saline was performed. There were no complications. Left Ventricle The left ventricular size, thickness and function are normal. Right Ventricle The right ventricle is normal in size and function. Atria The interatrial septum is intact with no evidence for an atrial septal defect. 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 Injection of contrast documented no interatrial shunt. Mitral Valve There is mild mitral regurgitation. Tricuspid Valve No tricuspid regurgitation. Aortic Valve The aortic valve is trileaflet. No hemodynamically significant valvular aortic stenosis. No aortic regurgitation is present. Pulmonic Valve There is no pulmonic valvular regurgitation. Great Vessels Normal aortic arch, descending and ascending aorta. Pericardium/Pluera There is no pericardial effusion. MD Jason Garcia 01/29/2019, 2:52 PM Ordering Physician: Masood Odonnell Performed By: WR
[2019-01-29] MEDS: ATORVASTATIN CA 40 MG TABLET (FP) PO SCH (22:22)
[2019-01-30] MEDS: LEVOTHYROXINE NA 25 MCG TABLET (FP) PO SCH (07:04)
[2019-01-30] MEDS: CLOPIDOGREL BISULFATE 75 MG TABLET (FP) PO SCH (09:16)
[2019-01-30] MEDS: LOSARTAN 50MG/HCTZ 12.5MG 1 TAB (FP) PO SCH (09:17)
--- NOTE | 2019-01-30 10:35 | PN ---
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, Physician History of Present Illness: No CV complaints No chest pains Tele: SB 40s - Current Medication List Current Medications: Active Medications Atorvastatin Calcium (Lipitor -) 40 mg PO HS [facility] Last Admin: 01/29/19 22:22 Dose: 40 mg Clopidogrel Bisulfate (Plavix -) 75 mg PO DAILY [facility] Last Admin: 01/30/19 09:16 Dose: 75 mg HCTZ/Losartan Potassium (Hyzaar -) 1 tab PO DAILY [facility] Last Admin: 01/30/19 09:17 Dose: 1 tab Levothyroxine Sodium (Synthroid -) 25 mcg PO DAILY@0700 [facility] Last Admin: 01/30/19 07:04 Dose: 25 mcg - Objective Vital Signs: Vital Signs Temperature 98.1 F 01/30/19 08:10 Pulse Rate 56 L 01/30/19 08:10 Respiratory Rate 18 01/30/19 08:10 Blood Pressure 119/56 L 01/30/19 08:10 O2 Sat by Pulse Oximetry (%) 99 01/30/19 09:00 Constitutional: Yes: No Distress, Calm Cardiovascular: Yes: Regular Rate and Rhythm Respiratory: Yes: CTA Bilaterally Edema: No Labs: CBC, BMP 01/28/19 06:38 01/28/19 06:38 INR, PTT INR 1.01 (0.83-1.09) 01/24/19 13:15 Assessment/Plan 1. Acute CVA: -neuro input appreciated: MRI reported with left post. parietal infarct, ?? post div MCA territory but exam is more c/w mca stem territory infarct-suspect cardioembolic etiology. (was out of thrombolysis/thrombectomy window) -neurology following - rec plavix for antiplatelet -statin -bp targets per neuro -echo nl LV function, carotid dopplers no hemodynamically significant stenosis -telemetry monitoring - benign findings. outpatient loop monitor -NEERAJ 01/29 showing normal biventricular size and function. No source for emboli noted. 2. HTN: -bp reasonably controlled -targets per neuro (acute CVA)
--- NOTE | 2019-01-30 15:39 | PN ---
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, Physician Chief Complaint: STROKE History of Present Illness: Pt comfortable , confused ; denies headache , dizziness, weakness etc. - Current Medication List Current Medications: Active Medications Atorvastatin Calcium (Lipitor -) 40 mg PO HS [facility] Last Admin: 01/29/19 22:22 Dose: 40 mg Clopidogrel Bisulfate (Plavix -) 75 mg PO DAILY [facility] Last Admin: 01/30/19 09:16 Dose: 75 mg HCTZ/Losartan Potassium (Hyzaar -) 1 tab PO DAILY [facility] Last Admin: 01/30/19 09:17 Dose: 1 tab Levothyroxine Sodium (Synthroid -) 25 mcg PO DAILY@0700 [facility] Last Admin: 01/30/19 07:04 Dose: 25 mcg - Objective Vital Signs: Vital Signs Temperature 98.2 F 01/30/19 14:49 Pulse Rate 68 01/30/19 14:49 Respiratory Rate 18 01/30/19 14:49 Blood Pressure 103/57 L 01/30/19 14:49 O2 Sat by Pulse Oximetry (%) 99 01/30/19 09:00 Constitutional: Yes: Well Nourished Eyes: Yes: EOM Intact HENT: Yes: WNL Neck: Yes: Supple Cardiovascular: Yes: Regular Rate and Rhythm Respiratory: Yes: CTA Bilaterally Neurological: Yes: Alert, Confusion, Cran Nerves II-XII Intact ...Motor Strength: WNL Psychiatric: Yes: WNL, Alert Labs: CBC, BMP 01/28/19 06:38 01/28/19 06:38 INR, PTT INR 1.01 (0.83-1.09) 01/24/19 13:15 Problem List - Problems (1) CVA (cerebral vascular accident) Code(s): I63.9 - CEREBRAL INFARCTION, UNSPECIFIED (2) Elevated troponin Code(s): R74.8 - ABNORMAL LEVELS OF OTHER SERUM ENZYMES (3) HTN (hypertension) Code(s): I10 - ESSENTIAL (PRIMARY) HYPERTENSION (4) NSTEMI (non-ST elevated myocardial infarction) Code(s): I21.4 - NON-ST ELEVATION (NSTEMI) MYOCARDIAL INFARCTION (5) Syncope Code(s): R55 - SYNCOPE AND COLLAPSE Qualifiers: Syncope type: unspecified Qualified Code(s): R55 - Syncope and collapse Assessment/Plan Pt. with right motor/sensory deficit, right hemianopsia, and aphasia MRI shows multiple acute infarc ts L DOCUMENT ADVISOR, L MCA, small infarct R DOCUMENT ADVISOR and L cerebellum--highly suspicious for cardioembolic events , less likely vasculitis , no HX of DM, on 01/29/19; NEERAJ NL b/l ventricle size , no thrombosis Plavix 75mg daily ( ?ASa allergy) , holter --will need LO[facility] recorder [facility] miantenance per primary team. Thank you. Antonio Galindo MD
[2019-01-30] MEDS: ATORVASTATIN CA 40 MG TABLET (FP) PO SCH (21:42)
--- NOTE | 2019-01-30 23:55 | PN ---
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, Physician History of Present Illness: No new complaints - Current Medication List Current Medications: Active Medications Atorvastatin Calcium (Lipitor -) 40 mg PO HS [facility] Last Admin: 01/30/19 21:42 Dose: 40 mg Clopidogrel Bisulfate (Plavix -) 75 mg PO DAILY [facility] Last Admin: 01/30/19 09:16 Dose: 75 mg HCTZ/Losartan Potassium (Hyzaar -) 1 tab PO DAILY [facility] Last Admin: 01/30/19 09:17 Dose: 1 tab Levothyroxine Sodium (Synthroid -) 25 mcg PO DAILY@0700 [facility] Last Admin: 01/30/19 07:04 Dose: 25 mcg - Objective Vital Signs: Vital Signs Temperature 98.2 F 01/30/19 20:35 Pulse Rate 61 01/30/19 20:35 Respiratory Rate 18 01/30/19 20:35 Blood Pressure 113/61 01/30/19 20:35 O2 Sat by Pulse Oximetry (%) 99 01/30/19 09:00 Neck: Yes: WNL, Supple Cardiovascular: Yes: WNL, Regular Rate and Rhythm Respiratory: Yes: WNL, Regular, CTA Bilaterally Gastrointestinal: Yes: WNL, Normal Bowel Sounds, Soft Labs: CBC, BMP 01/28/19 06:38 01/28/19 06:38 INR, PTT INR 1.01 (0.83-1.09) 01/24/19 13:15 Problem List - Problems (1) CVA (cerebral vascular accident) Assessment/Plan: Monitor BP Ct scan head showed acute/subacute parietal infarct MRI showed acute B/L cerebral infarcts PT Neuro/cardio consults noted Code(s): I63.9 - CEREBRAL INFARCTION, UNSPECIFIED (2) HTN (hypertension) Assessment/Plan: Cont losartan/hctz Code(s): I10 - ESSENTIAL (PRIMARY) HYPERTENSION (3) Hypothyroidism Assessment/Plan: Cont levothyroxine Code(s): E03.9 - HYPOTHYROIDISM, UNSPECIFIED (4) Elevated troponin Assessment/Plan: As per cardio Code(s): R74.8 - ABNORMAL LEVELS OF OTHER SERUM ENZYMES
[2019-01-31] MEDS: LEVOTHYROXINE NA 25 MCG TABLET (FP) PO SCH (07:03)
[2019-01-31 07:42] LABS: ALBUMIN 2.5 g/dl (3.4-5.0); ALK PHOS 52 U/L (45-117); ANION GAP 9 MMOL/L (8-16); BILIRUBIN,TOTAL 1.1 mg/dL (0.2-1); BLOOD UREA NITROGEN 13 mg/dL (7-18); CALCIUM 8.2 mg/dL (8.5-10.1); CHLORIDE 101 mmol/L (98-107); CO2 28 mmol/L (21-32); CREATININE 0.4 mg/dL (0.55-1.3); GLUCOSE,RANDOM 91 mg/dL (74-106); POTASSIUM 3.7 mmol/L (3.5-5.1); SGOT/AST 33 U/L (15-37); SGPT/ALT 25 U/L (13-61); SODIUM 138 mmol/L (136-145); TOT PROT 5.7 g/dl (6.4-8.2)
[2019-01-31 07:45] LABS: BASO % 0.7 % (0-2.0); EOS % 5.1 % (0-4.5); HEMATOCRIT 32.2 % (32.4-45.2); HEMOGLOBIN 10.5 GM/dL (10.7-15.3); LYMPH % 23.1 % (8-40); MCHC 32.5 g/dl (32.0-36.0); MEAN CELL VOLUME 57.7 fl (80-96); MEAN PLT VOLUME 11.3 fl (7.5-11.1); MONO % 7.1 % (3.8-10.2); PLATELET COUNT 217 K/MM3 (134-434); RBC 5.58 M/mm3 (3.60-5.2); RDW 16.7 % (11.6-15.6); WHITE BLOOD COUNT 7.5 K/mm3 (4.0-10.0)
[2019-01-31 08:36] LABS: MCH 18.8 pg (25.7-33.7)
[2019-01-31] MEDS: LOSARTAN 50MG/HCTZ 12.5MG 1 TAB (FP) PO SCH (10:43)
[2019-01-31] MEDS: CLOPIDOGREL BISULFATE 75 MG TABLET (FP) PO SCH (10:43)
--- NOTE | 2019-01-31 10:56 | PN ---
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, Physician History of Present Illness: No complaints Tele: SB 40s - Current Medication List Current Medications: Active Medications Atorvastatin Calcium (Lipitor -) 40 mg PO HS [facility] Last Admin: 01/30/19 21:42 Dose: 40 mg Clopidogrel Bisulfate (Plavix -) 75 mg PO DAILY [facility] Last Admin: 01/31/19 10:43 Dose: 75 mg HCTZ/Losartan Potassium (Hyzaar -) 1 tab PO DAILY [facility] Last Admin: 01/31/19 10:43 Dose: 1 tab Levothyroxine Sodium (Synthroid -) 25 mcg PO DAILY@0700 [facility] [place] Last Admin: 01/31/19 07:03 Dose: 25 mcg - Objective Vital Signs: Vital Signs Temperature 97.9 F 01/31/19 06:45 Pulse Rate 53 L 01/31/19 06:45 Respiratory Rate 18 01/31/19 06:45 Blood Pressure 127/53 L 01/31/19 06:45 O2 Sat by Pulse Oximetry (%) 97 01/30/19 20:40 Constitutional: Yes: No Distress, Calm Cardiovascular: Yes: Regular Rate and Rhythm Respiratory: Yes: CTA Bilaterally Edema: No Labs: CBC, BMP 01/31/19 05:30 01/31/19 05:30 INR, PTT INR 1.01 (0.83-1.09) 01/24/19 13:15 Assessment/Plan 1. Acute CVA: -neuro input appreciated: MRI reported with left post. parietal infarct, ?? post div MCA territory but exam is more c/w mca stem territory infarct-suspect cardioembolic etiology. (was out of thrombolysis/thrombectomy window) -neurology following - rec plavix for antiplatelet -statin -bp targets per neuro -echo nl LV function, carotid dopplers no hemodynamically significant stenosis -telemetry monitoring - benign findings. outpatient loop monitor -NEERAJ 01/29 showing normal biventricular size and function. No source for emboli noted. 2. HTN: -bp reasonably controlled -targets per neuro (acute CVA)
[2019-01-31 12:20] LABS: PLATELET ESTIMATE ADEQUATE
[2019-01-31] MEDS: ATORVASTATIN CA 40 MG TABLET (FP) PO SCH (21:00)
--- NOTE | 2019-01-31 21:42 | PN ---
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, Physician History of Present Illness: No new complaints - Current Medication List Current Medications: Active Medications Atorvastatin Calcium (Lipitor -) 40 mg PO HS [facility] Last Admin: 01/31/19 21:00 Dose: 40 mg Clopidogrel Bisulfate (Plavix -) 75 mg PO DAILY [facility] Last Admin: 01/31/19 10:43 Dose: 75 mg HCTZ/Losartan Potassium (Hyzaar -) 1 tab PO DAILY [facility] Last Admin: 01/31/19 10:43 Dose: 1 tab Levothyroxine Sodium (Synthroid -) 25 mcg PO DAILY@0700 [facility] Last Admin: 01/31/19 07:03 Dose: 25 mcg - Objective Vital Signs: Vital Signs Temperature 98.8 F 01/31/19 18:00 Pulse Rate 68 01/31/19 18:00 Respiratory Rate 18 01/31/19 18:00 Blood Pressure 132/65 01/31/19 18:00 O2 Sat by Pulse Oximetry (%) 97 01/31/19 09:00 Neck: Yes: WNL, Supple Cardiovascular: Yes: WNL, Regular Rate and Rhythm Respiratory: Yes: WNL, Regular, CTA Bilaterally Gastrointestinal: Yes: WNL, Normal Bowel Sounds, Soft Edema: No Labs: CBC, BMP 01/31/19 05:30 01/31/19 05:30 INR, PTT INR 1.01 (0.83-1.09) 01/24/19 13:15 Problem List - Problems (1) CVA (cerebral vascular accident) Assessment/Plan: Monitor BP NEERAJ did not show any emboli Carotid doppler did not show significant stenosis MRI brain shgowed: subacute cerebellar infarcts Cont plavix/lipitor DC planning in am to STR Code(s): I63.9 - CEREBRAL INFARCTION, UNSPECIFIED (2) HTN (hypertension) Assessment/Plan: Cont losartan/hctz Code(s): I10 - ESSENTIAL (PRIMARY) HYPERTENSION (3) Hypothyroidism Assessment/Plan: Cont levothyroxine Code(s): E03.9 - HYPOTHYROIDISM, UNSPECIFIED (4) Elevated troponin Code(s): R74.8 - ABNORMAL LEVELS OF OTHER SERUM ENZYMES
[2019-02-01 05:19] VITALS: BP 115/52; PULSE 57; TEMP 98.1
[2019-02-01] MEDS: LEVOTHYROXINE NA 25 MCG TABLET (FP) PO SCH (06:32)
--- NOTE | 2019-02-01 09:02 | PN ---
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, Physician Chief Complaint: seen and examined on tele NO CP or SOB TELE: NSR, occasional sinus ozzie. Short self limited run PSVT (3-5 beats). Regular/narrow complex. - Current Medication List Current Medications: Active Medications Atorvastatin Calcium (Lipitor -) 40 mg PO HS [facility] Last Admin: 01/31/19 21:00 Dose: 40 mg Clopidogrel Bisulfate (Plavix -) 75 mg PO DAILY [facility] Last Admin: 01/31/19 10:43 Dose: 75 mg HCTZ/Losartan Potassium (Hyzaar -) 1 tab PO DAILY [facility] Last Admin: 01/31/19 10:43 Dose: 1 tab Levothyroxine Sodium (Synthroid -) 25 mcg PO DAILY@0700 [facility] Last Admin: 02/01/19 06:32 Dose: 25 mcg - Objective Vital Signs: Vital Signs Temperature 98.1 F 02/01/19 05:17 Pulse Rate 57 L 02/01/19 05:17 Respiratory Rate 18 02/01/19 05:17 Blood Pressure 115/52 L 02/01/19 05:17 O2 Sat by Pulse Oximetry (%) 97 01/31/19 21:00 Constitutional: Yes: No Distress, Calm Cardiovascular: Yes: Regular Rate and Rhythm Respiratory: Yes: CTA Bilaterally Gastrointestinal: Yes: Soft Edema: No Neurological: Yes: Alert, Oriented ...Motor Strength: WNL Labs: CBC, BMP 01/31/19 05:30 01/31/19 05:30 INR, PTT INR 1.01 (0.83-1.09) 01/24/19 13:15 Laboratory Tests 01/31/19 01/31/19 05:30 05:30 WBC 7.5 Hgb 10.5 L Hct 32.2 L Plt Count 217 D Sodium 138 Potassium 3.7 BUN 13 Creatinine 0.4 L AST 33 ALT 25 Alkaline Phosphatase 52 - ....Imaging EKG: Image Reviewed Assessment/Plan Assessment/Plan 1. Acute CVA: -neuro input appreciated: MRI reported with left post. parietal infarct, ?? post div MCA territory but exam is more c/w mca stem territory infarct- -neurology following - rec plavix for antiplatelet -statin -bp targets per neuro -echo nl LV function, carotid dopplers no hemodynamically significant stenosis -telemetry monitoring - benign findings. outpatient loop monitor -NEERAJ 01/29 showing normal biventricular size and function. No source for emboli noted. 2. HTN: -bp reasonably controlled -targets per neuro (acute CVA) 3. Dispo: -January d/c tele. Needs outpatient Cardiology f/u with Dr. Eckert ([phone]) to arrange loop monitor or extended outpatient telemetry
[2019-02-01] MEDS: LOSARTAN 50MG/HCTZ 12.5MG 1 TAB (FP) PO SCH (10:02)
[2019-02-01] MEDS: CLOPIDOGREL BISULFATE 75 MG TABLET (FP) PO SCH (10:02)
--- NOTE | 2019-02-01 12:01 | PN ---
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 - Note 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: Selected Entries 01/28/19 01/28/19 01/28/19 03:34 06:21 09:31 Breakfast 50% Lunch Temperature 99 F 98 F 01/28/19 01/28/19 01/28/19 10:00 12:47 14:30 Breakfast Lunch 50% Temperature 97.5 F L 97.7 F 01/28/19 01/28/19 01/29/19 18:03 21:00 02:08 Breakfast Lunch Temperature 98.4 F 97.7 F 98.3 F 01/29/19 01/29/19 01/29/19 06:00 10:00 11:37 Breakfast NPO Lunch Temperature 98.4 F 98.5 F MRI shows multiple acute infarc ts L STAMP REDEMPTION CLERK, L MCA, small infarct R STAMP REDEMPTION CLERK and L cerebellum--highly suspicious for cardioembolic events , less likely vasculitis , no HX of DM, on 01/29/19; NEERAJ NL b/l ventricle size , no thrombosis Excellent candidate for acute rehab for PT/OT/Speech. Pt receiving dys minced food (fish/egg/no meat)/nectar thick liquid Pending d/c to [facility] for STR Rec: Upgrade diet to reg chopped and 1-2 items.Thin liquid. Add finger foods to encourage self feeding.
[2019-02-02 18:12] LABS: HOMOCYSTINE-PLASMA OR SERUM 5.3 umol/L (5.1-13.9); METHYLMALONIC ACID- 103 nmol/L (0-378)
--- NOTE | 2019-02-09 15:32 | DS ---
DATE OF ADMISSION: 01/24/2019 DATE OF DISCHARGE: 02/01/2019 HISTORY OF HOSPITAL COURSE: Patient is an 83-year-old, -speaking female whose history was mostly taken from family members. Patient was initially admitted through the ER because the patient's sister found her to have altered mental status. In the ER, patient had a CT scan of the head which showed acute/subacute left posterior-parietal infarct. Patient was seen by Neurology and Cardiology. Patient had MRI of the brain which showed bilateral cerebral infarcts, small acute right posterior temporal and right posterior parietal infarcts, and probable small acute infarct within the posterior-inferior aspect of the left cerebellar hemisphere. Patient started physical therapy. Patient had carotid Dopplers, which showed no significant stenosis, and patient was discharged to a detention facility for rehab. MD DAMON Spear/[id number]
== END 2019-02-01 14:17 | DRG 64 ==
LOC: JER 11:32 → JERBED 15:11 → J4W 01-25 18:03
PROVIDERS: ADMIT Internal Medicine; ATTEND Internal Medicine
PROC: B24BZZ4 Ultrasonography of Heart with Aorta, Transesophageal (ICD-10-PCS; principal; 2019-01-24)
DX: I63.9 Cerebral infarction, unspecified (principal); I61.8 Other nontraumatic intracerebral hemorrhage; R29.715 NIHSS score 15; R47.01 Aphasia; I10 Essential (primary) hypertension; H53.47 Heteronymous bilateral field defects; E03.9 Hypothyroidism, unspecified
CPT/HCPCS: 36415; 70450-TC; 70544-TC; 70547-TC; 70551-TC; 71045-TC-FY; 80053; 80061; 81003; 82136; 82550; 82553; 82607; 83036; 83721; 83918; 84443; 84484; 85025; 85610; 85651; 85730; 86038; 86140; 86225; 87086; 93005; 93010; 93306-TC; 93312; 93325; 93880-TC; 97116-GP; 97162-GP; 99285-25

== ENCOUNTER 2019-06-15 16:16 | Emergency (ER) | payer OTHER ==
[2019-06-15 17:08] VITALS: BMI 19.5
--- NOTE | 2019-06-15 17:08 | PDOC ---
History of Present Illness - General Chief Complaint: Injury Stated Complaint: PAIN Time Seen by Provider: 06/15/19 16:58 History Source: Patient Exam Limitations: No Limitations - History of Present Illness Initial Comments: 06/15/19 18:13 83 yo F with a hx of HTN, left shoulder fracture s/p repair 1 year ago, and CVA (MRI showing acute moderate to large cortical infarcts in L occipital/temporal lobe with punctate acute left thalamic infarct; residual left arm and left leg weakness) presents to the emergency department s/p fall on Friday. Per the patient, she states she alia from the toilet and fell over and landed in the bathtub. Denies LOC. States she has had residual pain in her head on the occipital/right parietal as well as left shoulder pain since. Denies nausea, vomiting, chest pain, worsening FNDs, chest pain, abdominal pain, dysuria, hematuria, diarrhea, leg pain/swelling, and hematochezia. On plavix Allergies: Aspirin Social: Denies tobacco, alcohol, and substance abuse. 06/15/19 18:27 Past History - Past Medical History Allergies/Adverse Reactions: Allergies Allergy/AdvReac Type Severity Reaction Status Date / Time aspirin Allergy Unknown Verified 06/15/19 17:03 Home Medications: Ambulatory Orders Levothyroxine Sodium [Unithroid] 25 mcg PO DAILY 01/21/16 Losartan 50Mg/Hctz 12.5MG [Hyzaar -] 1 tab PO DAILY 01/24/19 Atorvastatin Ca [Lipitor] 40 mg PO HS tablet 02/01/19 Clopidogrel Bisulfate [Plavix -] 75 mg PO DAILY tablet 02/01/19 COPD: No HTN: Yes Seizures: Yes (HPPOTHYROID) - Surgical History Orthopedic Surgery: Yes (LEFT SHOULDER) - Immunization History Immunization Up to Date: Yes - Suicide/Smoking/Psychosocial Hx Smoking History: Never smoked Have you smoked in the past 12 months: No Hx Alcohol Use: No Drug/Substance Use Hx: No Substance Use Type: None Hx Substance Use Treatment: No Review of Systems - Review of Systems Able to Perform ROS?: Yes Is the patient limited Marshallese proficient: No Constitutional: No: Chills, Diaphoresis, Fever, Weakness HEENTM: No: Eye Pain, Ear Pain, Nose Pain, Throat Pain, Mouth Pain Respiratory: No: Cough, Shortness of Breath, Hemoptysis Cardiac (ROS): No: Chest Pain, Lightheadedness, Palpitations, Syncope ABD/GI: No: Constipated, Diarrhea, Nausea, Rectal Bleeding, Vomiting, Tarry Stools : No: Burning, Dysuria, Hematuria, Incontinence Musculoskeletal: Yes: Joint Pain (left shoulder). No: Back Pain, Neck Pain Integumentary: No: Bruising, Erythema, Sweating Neurological: Yes: Headache. No: Numbness, Tingling, Tremors Psychiatric: No: Change in Appetite Endocrine: No: Unexplained Weight Gain Hematologic/Lymphatic: No: Anemia *Physical Exam - Vital Signs Last Vital Signs Temp Pulse Resp BP Pulse Ox 97.4 F L 65 16 166/73 100 06/15/19 16:34 06/15/19 16:34 06/15/19 16:34 06/15/19 16:34 06/15/19 16:34 - Physical Exam General Appearance: Yes: Nourished, Appropriately Dressed, Thin. No: Apparent Distress, Intoxicated HEENT: positive: EOMI, RICHY, Normal ENT Inspection, Normal Voice, Symmetrical, TMs Normal, Pharynx Normal (unable to visualize right TM), Hearing Grossly Normal. negative: Pale Conjunctivae, Scleral Icterus (R), Scleral Icterus (L), Muffled/Hoarse voice, Pharyngeal Erythema, Tonsillar Exudate, Tonsillar Erythema , Nasal Congestion, Rhinorrhea, Sinus Tenderness, Excessive drooling Neck: positive: Trachea midline, Supple. negative: Tender, Lymphadenopathy (R) , Lymphadenopathy (L), Tender lateral, Tender midline Respiratory/Chest: positive: Lungs Clear, Normal Breath Sounds. negative: Chest Tender, Respiratory Distress, Accessory Muscle Use, Rhonchi, Stridor, Wheezing Cardiovascular: positive: Regular Rhythm, Regular Rate, S1, S2. negative: Systolic Murmur Gastrointestinal/Abdominal: positive: Normal Bowel Sounds, Flat, Soft. negative : Tender, Distended, Guarding, Rebound Lymphatic: negative: Adenopathy Musculoskeletal: positive: Normal Inspection. negative: CVA Tenderness, Vertebral Tenderness Extremity: positive: Normal Capillary Refill, Normal Range of Motion, Tender ( left shoulder anterior lateral with ecchymosis noted on the left clavicle and shoulder.). negative: Normal Inspection, Swelling, Calf Tenderness Integumentary: positive: Normal Color, Dry, Warm. negative: Swelling, Ecchymosis Neurologic: positive: feather baler II-XII NML intact, Fully Oriented, Alert, Normal Mood/ Affect, Normal Response, Motor Strength 5/5. negative: EOM Palsy, Facial Droop , Numbness ED Treatment Course - LABORATORY CBC & Chemistry Diagram: 06/15/19 17:45 06/15/19 17:45 Medical Decision Making - Medical Decision Making 83 yo F with a hx of HTN, left shoulder fracture s/p repair 1 year ago, and CVA (MRI showing acute moderate to large cortical infarcts in L occipital/temporal lobe with punctate acute left thalamic infarct; residual left arm and left leg weakness) presents to the emergency department s/p fall on Friday. Per the patient, she states she alia from the toilet and fell over and landed in the bathtub. Initial vitals: Initial Vital Signs Temp Pulse Resp BP Pulse Ox 97.4 F L 65 16 166/73 100 06/15/19 16:34 06/15/19 16:34 06/15/19 16:34 06/15/19 16:34 06/15/19 16:34 Work up ddx: fall secondary to mechanical vs andres-syncope from infectious vs metabolic vs hypovolemia. The patient was unable to present earlier. Will order head ct, ct cervical spine, cxr, left shoulder, cbc, cmp, trops, ua. Patient was signed out to Dr. Wong with pending labs, imaging, and EKG. *DC/Admit/Observation/Transfer Diagnosis at time of Disposition: Left shoulder pain Qualifiers: Chronicity: acute Qualified Code(s): M25.512 - Pain in left shoulder - Referrals Referrals: Brian Alfred MD [Primary Care Provider] - - Patient Instructions Printed Discharge Instructions: DI for Shoulder Pain Additional Instructions: Discharge Instructions: You were seen in the emergency department for shoulder pain following a fall at home. Your xray did not show any new fracture. You may use acetaminophen 650mg or ibuprofen 400mg every 6-8 hours as needed for pain. If necessary for severe pain, these may be alternated every 3-4 hours. Take ibuprofen with food. You may apply ice to your shoulder as tolerated to help with your discomfort. Follow up with your orthopedic surgeon if your pain does not improve within the next 2-3 days. Seek immediate care for worsening symptoms, inability to move your arm at all, inability to complete necessary daily activities, additional falls, or any other medical emergency. - Post Discharge Activity
[2019-06-15] MEDS ORDERED: ACETAMINOPHEN 1000 MG/100 ML VIAL (NON FORMULARY) IVPB ONE (17:22)
[2019-06-15] MEDS ORDERED: ACETAMINOPHEN INJECTION 100 ML IVPB ONE (17:39)
--- NOTE | 2019-06-15 17:47 | PDOC ---
Attending Attestation - Resident Resident Name: ManriNolan - ED Attending Attestation I have performed the following: I have examined & evaluated the patient, The case was reviewed & discussed with the resident, I agree w/resident's findings & plan, Exceptions are as noted - HPI HPI: 06/15/19 17:39 this 83 yo female fell on Friday and hit her left clavicle and lrft shoulder. Her family noticed today that she could not raise her L arm and could not use her walker because of L arm weakness Her daughter stated that last year she dislocated her left arm and she has had surgery in the past on her left shoulder - Physicial Exam PE: 06/15/19 17:47 thin 83 yo female w ecchymosis to left clavicle and left shoulder head ncat neck supple lungs cta b/l extremities pain in left shoulder that has an old surgical scar and is painful to raise neuro alert skin warm and dry 06/15/19 21:16 - Medical Decision Making 06/15/19 21:18 radiographs of her left shoulder read as negative for any acute fracture, dislocation or subluxation ct scan of the head is negative for any acute intracranial pathology, there is no skull fracture 06/15/19 21:20 ct scan c spine no fracture,no subluxation cxr CM,no infiltrates 06/15/19 23:14 imp left arm contusion, d/c home
[2019-06-15 18:34] LABS: BASO % 0.3 % (0-2.0); EOS % 2.7 % (0-4.5); HEMATOCRIT 32.1 % (32.4-45.2); LYMPH % 19.8 % (8-40); MCHC 31.1 g/dl (32.0-36.0); MEAN CELL VOLUME 57.3 fl (80-96); MEAN PLT VOLUME 10.8 fl (7.5-11.1); MONO % 5.2 % (3.8-10.2); PLATELET COUNT 139 K/MM3 (134-434); RBC 5.59 M/mm3 (3.60-5.2); RDW 18.9 % (11.6-15.6); WHITE BLOOD COUNT 7.8 K/mm3 (4.0-10.0)
[2019-06-15 18:44] LABS: MCH 17.8 pg (25.7-33.7)
[2019-06-15 19:01] LABS: BILIRUBIN,TOTAL 0.3 mg/dL (0.2-1); BLOOD UREA NITROGEN 8.1 mg/dL (7-18); CALCIUM 8.7 mg/dL (8.5-10.1); CREATININE 0.5 mg/dL (0.55-1.3); POTASSIUM 4.1 mmol/L (3.5-5.1); TOT PROT 6.9 g/dl (6.4-8.2)
--- NOTE | 2019-06-15 19:43 | PDOC ---
*Physical Exam - Vital Signs Last Vital Signs Temp Pulse Resp BP Pulse Ox 98.5 F 106 H 18 181/77 H 99 06/15/19 17:00 06/15/19 17:00 06/15/19 17:00 06/15/19 17:00 06/15/19 17:00 ED Treatment Course - LABORATORY CBC & Chemistry Diagram: 06/15/19 17:45 06/15/19 17:45 - ADDITIONAL ORDERS Additional order review: Laboratory Results 06/15/19 17:45 Sodium 141 Potassium 4.1 Chloride 104 Carbon Dioxide 32 Anion Gap 5 L BUN 8.1 Creatinine 0.5 L Est GFR (CKD-EPI)AfAm 103.73 Est GFR (CKD-EPI)NonAf 89.50 Random Glucose 79 Calcium 8.7 Total Bilirubin 0.3 AST 29 ALT 23 Alkaline Phosphatase 86 Creatine Kinase 39 Troponin I 0.10 H Total Protein 6.9 Albumin 3.0 L 06/15/19 17:45 RBC 5.59 H MCV 57.3 L MCHC 31.1 L RDW 18.9 H Neutrophils % 72.0 Lymphocytes % 19.8 Monocytes % 5.2 Eosinophils % 2.7 Basophils % 0.3 - Medications Given in the ED: ED Medications Discontinued Medications Generic Name Dose Route Start Last Admin Trade Name Freq PRN Reason Stop Dose Admin Acetaminophen 1,000 mg 06/15/19 17:22 06/15/19 18:00 Ofirmev Injection - IVPB 06/15/19 17:23 1,000 mg ONCE ONE Administration Medical Decision Making - Medical Decision Making 06/15/19 19:41 Sign out received from Dr Marni Usi You is an 83yo woman with a PMH of HTN, CVA, NSTEMI, s/p left shoulder fracture repaired 1yr ago who presents following a fall 3 days ago. She reported that she lost her balance rising from the toilet and hit her left shoulder, with continued pain today. ED course so far notable for: - Labs sent. Troponin detectable at 0.10. H/o NSTEMI; will repeat trop. - EKG w/ diffuse t-wave flattening but no ST elevations - CT head, CT c-spine, shoulder xrays need to be completed 06/15/19 22:42 - No acute injury noted on imaging - Repeat trop 0.09, no increase - Will reasess; may be able to send pt home if pain is improved 06/15/19 23:07 - Pt still with some pain with arm flexion, but reports that pain has improved compared to yesterday. She reports that she has been able to move around her house without much difficulty - Given no fracture, pt able to walk to the bathroom and to eat at home, plan to discharge home with PMD follow up. 06/15/19 23:13 - Call placed to family by Dr Gaming without answer. Will attempt again to reach , but pt may need transportation arranged to return home - Will d/c home with orthopedic follow up. 06/15/19 23:56 - Spoke to pt's niece. Reports that patient needs 24 hour care, has dementia, unable to perform ADL's. However niece does not live with the patient. - Discussed with Dr Gaming, who reports that the family member present initially did not mention admission, was waiting in the ED to take the patient home. Will wait until the morning to discharge her home after additional discussion with family. 06/16/19 06:52 - Family contacted by Dr Johns. 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 Discussed with Dr Gaming and Dr Cady Wong PGY2 *DC/Admit/Observation/Transfer Diagnosis at time of Disposition: Left shoulder pain Qualifiers: Chronicity: acute Qualified Code(s): M25.512 - Pain in left shoulder - Discharge Dispostion Decision to Admit order: No - Referrals Referrals: Brian Alfred MD [Primary Care Provider] - - Patient Instructions Printed Discharge Instructions: DI for Shoulder Pain Additional Instructions: Discharge Instructions: You were seen in the emergency department for shoulder pain following a fall at home. Your xray did not show any new fracture. You may use acetaminophen 650mg or ibuprofen 400mg every 6-8 hours as needed for pain. If necessary for severe pain, these may be alternated every 3-4 hours. Take ibuprofen with food. You may apply ice to your shoulder as tolerated to help with your discomfort. Follow up with your orthopedic surgeon if your pain does not improve within the next 2-3 days. Seek immediate care for worsening symptoms, inability to move your arm at all, inability to complete necessary daily activities, additional falls, or any other medical emergency. - Post Discharge Activity
[2019-06-15 19:58] LABS: ANISOCYTOSIS 3+; MACROCYTOSIS 0; OVALOCYTE 2+; PLATELET ESTIMATE NORMAL; TARGET CELLS 1+
[2019-06-16 11:22] VITALS: BP 150/70; PULSE 60; TEMP 97.4
--- NOTE | 2019-06-16 11:29 | EKG ---
Test Reason : Blood Pressure : / mmHG Vent. Rate : 054 BPM Atrial Rate : 054 BPM P-R Int : 160 ms QRS Dur : 098 ms QT Int : 442 ms P-R-T Axes : 049 002 031 degrees QTc Int : 419 ms SINUS BRADYCARDIA POSSIBLE ANTERIOR INFARCT (CITED ON OR BEFORE 21-JAN-2016) ABNORMAL ECG WHEN COMPARED WITH ECG OF 24-JAN-2019 12:48, NONSPECIFIC T WAVE ABNORMALITY NOW EVIDENT IN INFERIOR LEADS QT HAS SHORTENED Confirmed by ALYX SWANSON, DORCAS ([id number]) on 06/16/2019 11:28:50 AM Referred By: Confirmed By:DORCAS WISDOM MD
== END 2019-06-16 11:20 | disposition home or self-care (01) ==
LOC: JER 16:16
DX: S40.012A Contusion of left shoulder, initial encounter (principal); S40.022A Contusion of left upper arm, initial encounter; W18.2XXA Fall in (into) shower or empty bathtub, initial encounter; Y93.89 Activity, other specified; Y92.031 Bathroom in apartment as the place of occurrence of the external cause; Y99.8 Other external cause status; I25.10 Atherosclerotic heart disease of native coronary artery without angina pectoris; I10 Essential (primary) hypertension; I25.2 Old myocardial infarction; E03.9 Hypothyroidism, unspecified; E78.00 Pure hypercholesterolemia, unspecified; F03.90 Unspecified dementia, unspecified severity, without behavioral disturbance, psychotic disturbance, mood disturbance, and anxiety; Z86.73 Personal history of transient ischemic attack (TIA), and cerebral infarction without residual deficits
CPT/HCPCS: 36415; 70450-TC; 71046-TC-FY; 72125-TC; 73030-TC-LT-FY; 80053; 82550; 84484; 85025; 93005; 93010; 99284-25; J0131

== ENCOUNTER 2019-07-28 17:29 | Inpatient (IN) | payer OTHER ==
--- NOTE | 2019-07-28 17:47 | PDOC ---
Rapid Medical Evaluation Time Seen by Provider: 07/28/19 17:45 Medical Evaluation: Allergies Allergy/AdvReac Type Severity Reaction Status Date / Time aspirin Allergy Unknown Verified 06/15/19 17:03 07/28/19 17:46 Pt c/o: weak and more confused over the past 3 days, no abd complaints Pt on brief exam: vss Pt ordered for:labs, urine Pt to proceed to the ED Discharge Disposition - Diagnosis Weakness - Discharge Dispostion Condition at time of disposition: Stable - Referrals - Patient Instructions - Post Discharge Activity
--- NOTE | 2019-07-28 18:26 | PDOC ---
History of Present Illness - General Chief Complaint: Weakness Stated Complaint: SENT BY DOCTOR Time Seen by Provider: 07/28/19 17:45 - History of Present Illness Initial Comments: Ms. You is a 83 y/o female with PMH of stroke in December (with memory and balance deficits and residual left arm/left leg weakness), HTN, left shoulder fx s/p repair, sent in by PCP because her mental status and memory seemed off. Per family, patient has been feeling off balance and increasing memory loss since her stroke in December. Reports that they are no longer able to take care of her and need group home placement. Patient denies headache, dizziness, chest pain, shortness of breath, abdominal pain, urinary symptoms, leg swelling. Past History - Past Medical History Allergies/Adverse Reactions: Allergies Allergy/AdvReac Type Severity Reaction Status Date / Time aspirin Allergy Unknown Verified 07/28/19 17:49 Home Medications: Ambulatory Orders Levothyroxine Sodium [Unithroid] 25 mcg PO DAILY 01/21/16 Losartan 50Mg/Hctz 12.5MG [Hyzaar -] 1 tab PO DAILY 01/24/19 Atorvastatin Ca [Lipitor] 40 mg PO HS tablet 02/01/19 Clopidogrel Bisulfate [Plavix -] 75 mg PO DAILY tablet 02/01/19 CVA: Yes COPD: No HTN: Yes Seizures: Yes (HPPOTHYROID) - Surgical History Orthopedic Surgery: Yes (LEFT SHOULDER) - Immunization History Immunization Up to Date: Yes - Psycho Social/Smoking Cessation Hx Smoking History: Never smoked Have you smoked in the past 12 months: No Information on smoking cessation initiated: No Hx Alcohol Use: No Drug/Substance Use Hx: No Substance Use Type: None Hx Substance Use Treatment: No Review of Systems - Review of Systems Comments:: ROS per family: GENERAL/CONSTITUTIONAL: No fever or chills. Reports weakness. HEAD, EYES, EARS, NOSE AND THROAT: No change in vision. No change in hearing. No sore throat. CARDIOVASCULAR: No chest pain or shortness of breath RESPIRATORY: Denies cough, hemoptysis_ GASTROINTESTINAL: No nausea, vomiting, diarrhea or constipation._ GENITOURINARY: No dysuria, frequency, or change in urination._ MUSCULOSKELETAL: No joint or muscle swelling or pain. No neck or back pain._ SKIN: No rash_ NEUROLOGIC: No headache, vertigo, loss of consciousness. Reports unsteady gait. Reports memory changes. ENDOCRINE: No increased thirst. No abnormal weight change_ HEMATOLOGIC/LYMPHATIC: No anemia, easy bleeding, or history of blood clots. ALLERGIC/IMMUNOLOGIC: No hives or skin allergy. *Physical Exam - Vital Signs Last Vital Signs Temp Pulse Resp BP Pulse Ox 98.5 F 85 17 145/82 98 07/28/19 17:47 07/28/19 17:47 07/28/19 17:47 07/28/19 17:47 07/28/19 17:47 - Physical Exam Comments: GENERAL: Awake, alert, oriented to person, in no acute distress_ HEAD: No signs of trauma, normocephalic, atraumatic _ EYES: PERRLA, EOMI, sclera anicteric, conjunctiva clear_ ENT: Hearing grossly normal, nares patent, oropharynx clear without exudates. No uvular deviation. Moist mucosa_ NECK: Normal ROM, supple, no lymphadenopathy, JVD, or masses_ LUNGS: No distress, speaks in full sentences, clear to auscultation bilaterally _ HEART: Regular rate and rhythm, normal S1 and S2, no murmurs appreciated, peripheral pulses normal and equal bilaterally._ ABDOMEN: Soft, nontender, normoactive bowel sounds. No guarding, no rebound. No masses_ EXTREMITIES: Normal inspection, Normal range of motion, no edema. No clubbing or cyanosis_ NEUROLOGICAL: Cranial nerves II through XII grossly intact. Normal speech, decreased strength on left upper/lower extremity SKIN: Warm, Dry, normal turgor, no rashes or lesions noted_ ED Treatment Course - LABORATORY CBC & Chemistry Diagram: 07/30/19 06:05 07/30/19 06:05 Medical Decision Making - Medical Decision Making 83F with hx of CVA and left residual weakness, HTN, presenting with decreased memory, attention and balance for the past few months. Per PCP, patient's mental status appeared to be changed from her baseline and sent her in for evaluation. -CBC, CMP, TSH -trop, EKG, CXR -UA/UC 07/28/19 1800 EKG shows NSR, 76 bpm, no ST elevation/depression, QTc 432. 07/28/19 18:55 D/w Dr. Zhou, who states that the patient's memory and mental status appeared a little different today. -CT head 07/28/19 19:45 Labs reviewed. Trop mildly elevated. -plan for tele bed 07/28/19 22:05 CT head shows no acute intracranial pathology. CXR shows no acute intra thoracic pathology. Discharge - Discharge Information Problems reviewed: Yes Clinical Impression/Diagnosis: Weakness Condition: Stable - Admission Yes - Follow up/Referral - Patient Discharge Instructions - Post Discharge Activity
[2019-07-28 18:35] LABS: BASO % 0.8 % (0-2.0); EOS % 3.3 % (0-4.5); HEMATOCRIT 30.6 % (32.4-45.2); HEMOGLOBIN 9.5 GM/dL (10.7-15.3); LYMPH % 22.7 % (8-40); MCHC 31.1 g/dl (32.0-36.0); MEAN CELL VOLUME 56.2 fl (80-96); NEUT % 66.2 % (42.8-82.8); RBC 5.45 M/mm3 (3.60-5.2); RDW 19.8 % (11.6-15.6); WHITE BLOOD COUNT 6.1 K/mm3 (4.0-10.0)
[2019-07-28 18:55] LABS: MCH 17.5 pg (25.7-33.7)
[2019-07-28 19:02] LABS: ALBUMIN 2.7 g/dl (3.4-5.0); BILIRUBIN,TOTAL 0.2 mg/dL (0.2-1); BLOOD UREA NITROGEN 11.8 mg/dL (7-18); CALCIUM 8.3 mg/dL (8.5-10.1); CREATININE 0.6 mg/dL (0.55-1.3); POTASSIUM 3.6 mmol/L (3.5-5.1); TOT PROT 6.4 g/dl (6.4-8.2)
--- NOTE | 2019-07-28 19:37 | PDOC ---
Documentation entered by Ashley Ramos SCRIBE, acting as scribe for Joceline Morrow DO. Joceline Morrow DO: This documentation has been prepared by the Richard sandhu Adrianna, SCRIBE, under my direction and personally reviewed by me in its entirety. I confirm that the documentation accurately reflects all work, treatment, procedures, and medical decision making performed by me. Attending Attestation - Resident Resident Name: LindseyMichele - ED Attending Attestation I have performed the following: I have examined & evaluated the patient, The case was reviewed & discussed with the resident, I agree w/resident's findings & plan, Exceptions are as noted - HPI HPI: The patient is an 83 year old female, with a significant PMH of HTN, left shoulder fracture (s/p repair), and CVA (MRI showing acute moderate to large cortical infarcts in L occipital/temporal lobe with punctate acute left thalamic infarct; residual left arm and left leg weakness), who presents to the ED for evaluation of progressively worsening unsteady gait and memory loss. Patient was seen by Dr. Zhou earlier today, who noticed her memory and balance were worse than prior visits (more than her residual baseline from prior CVA). Additionally, the patient's family can no longer provide care, and she needs to be placed in a facility. Allergies: Aspirin Surgical History: Left shoulder orthopedic surgery Social History: Denies tobacco, alcohol, and substance abuse PCP: Dr. Zhou - Physicial Exam PE: Constitutional: +Pleasantly confused. No acute distress. Head: Normocephalic. Atraumatic Eyes: PERRL. EOMI. Conjunctivae are not pale. ENT: Mucous membranes are moist and intact. Posterior pharynx without exudates or erythema. Uvula midline. Neck: Supple. Full ROM. No lymphadenopathy. Cardiovascular: Regular rate. Regular rhythm. S1, S2 regular. Distal pulses are 2+ and symmetric. Pulmonary/Chest: No evidence of respiratory distress. Clear to auscultation bilaterally No wheezing, rales or rhonchi. Abdominal: Soft and nondistended. There is no tenderness. No rebound, guarding or rigidity. No organomegaly. No palpable masses. Good bowel sounds. Back: No CVA tenderness. Musculoskeletal: +Trace pitting edema of the bilateral ankles. No cyanosis. No clubbing. Full range of motion in all extremities. Nocalf tenderness. Radial/pedal pulses are intact and 2+ bilaterally Skin: Skin is warm and dry. No petechiae. No purpura. Neurological: +Pleasantly confused. Cranial nerves II-XII are grossly intact. Normal speech. Strength is grossly symmetric. No sensory deficits. Psychiatric: Good eye contact. Normal interaction, affect and behavior. - Medical Decision Making 07/28/19 19:29 I, Dr. Joceline Morrow, DO, attest that this document has been prepared under my direction and personally reviewed by me in its entirety. I further attest, that it accurately reflects all work, treatment, procedures and medical decision -making performed by me. 07/28/19 19:29 a/p: 83yo female presents from home for eval of altered ms and freq falls -pt generally weak, more confused recently/poor historian -sent by PMD for eval -per fam, becoming more difficult to care for at home -difficulty getting up from chairs, generally weak, falls despite walker -no cp/sob, no abd pain -c/o urinary freq -will send labs, head ct, cxr, ekg, ua -will discuss with Dr. Zhou 07/28/19 19:35 resident discussed the case with Dr. Zhou who accepts pt to service 07/28/19 19:35 no elevated wbc trop neg 07/28/19 19:44 mildly elevated trop 07/28/19 19:45 pt denies cp 07/28/19 19:52 cxr clear Heart Score/ECG Review - ECG Intrepretation Comment:: 07/28/19 19:36 sinus at 76, q waves anterior/septal leads which are age indeterminate, t wave flattening diffusely, no acute st changes, unchanged from prior ED Treatment Course - LABORATORY CBC & Chemistry Diagram: 07/28/19 18:10 07/28/19 18:10 - ADDITIONAL ORDERS Additional order review: Laboratory Results 07/28/19 07/28/19 18:10 18:10 Sodium 139 Potassium 3.6 Chloride 103 Carbon Dioxide 30 Anion Gap 7 L BUN 11.8 Creatinine 0.6 Est GFR (CKD-EPI)AfAm 97.69 Est GFR (CKD-EPI)NonAf 84.29 Random Glucose 138 H Calcium 8.3 L Total Bilirubin 0.2 AST 26 ALT 19 Alkaline Phosphatase 84 Creatine Kinase 44 Troponin I 0.09 H Total Protein 6.4 Albumin 2.7 L TSH 1.44 07/28/19 18:10 RBC 5.45 H MCV 56.2 L MCHC 31.1 L RDW 19.8 H Neutrophils % 66.2 Lymphocytes % 22.7 Monocytes % 7.0 Eosinophils % 3.3 Basophils % 0.8 - RADIOLOGY Radiograph Interpretation: EXAM#: TYPE/EXAM: RESULT: [id number] RAD/CHEST X-RAY PORTABLE* Chest: Weakness Impression : No acute pathology. Old skeletal trauma. Large heart. Clear lungs. Weak inspiration. Reported By: Andrés Brady MD 07/28/19 19:13 EXAM#: TYPE/EXAM: RESULT: [id number] CT/HEAD CT WITHOUT CONTRAST HISTORY PROVIDED : Altered mental status TECHNIQUE: Sequential axial images were obtained from the base of the skull to the vertex. There is no evidence of acute intracranial hemorrhage, mass lesions or infarctions. There is a large area of hypodensity within the left posterior parietal and occipital lobes consistent with an old infarct. A similar smaller area is noted in the right posterior parietal lobe. There is a moderate degree of diffuse cerebral atrophy with sulcal widening and ventricular dilatation. Hypodense changes are noted within the periventricular white matter consistent with chronic, small vessel ischemia. IMPRESSION: No evidence of acute intracranial pathology. Reported By: Emeka Ch MD 07/28/19 21:32
[2019-07-28 20:21] LABS: ANISOCYTOSIS 2+; MACROCYTOSIS 0; OVALOCYTE 2+; PLATELET ESTIMATE NORMAL; TARGET CELLS 1+
[2019-07-28 20:32] LABS: MEAN PLT VOLUME 9.9 fl (7.5-11.1); PLATELET COUNT 185 K/MM3 (134-434)
[2019-07-28 22:25] LABS: URINE APPEARANCE CLEAR; URINE BILIRUBIN NEGATIVE (NEGATIVE); URINE COLOR YELLOW; URINE GLUCOSE (UA) NEGATIVE (NEGATIVE); URINE KETONE NEGATIVE (NEGATIVE); URINE LEUK ESTERASE NEGATIVE (NEGATIVE); URINE NITRITE NEGATIVE (NEGATIVE); URINE PROTEIN NEGATIVE (NEGATIVE); URINE UROBILINOGEN 0.2 mg/dL (0.2-1.0)
[2019-07-29] MEDS ORDERED: amLODIPine BESYLATE 2.5 MG TABLET (FP) PO ONE (00:51)
[2019-07-29] MEDS: LEVOTHYROXINE NA 25 MCG TABLET (FP) PO SCH (06:13)
[2019-07-29] MEDS ORDERED: PNEUMOC 13-VAL CONJ-DIP CRM/PF 0.5 ML DISP.SYRIN IM ONE (08:00)
[2019-07-29 08:22] LABS: ALBUMIN 2.6 g/dl (3.4-5.0); BILIRUBIN,TOTAL 0.4 mg/dL (0.2-1); BLOOD UREA NITROGEN 8.7 mg/dL (7-18); CALCIUM 8.2 mg/dL (8.5-10.1); CREATININE 0.4 mg/dL (0.55-1.3); POTASSIUM 3.4 mmol/L (3.5-5.1); TOT PROT 6.1 g/dl (6.4-8.2)
[2019-07-29] MEDS: HEPARIN NA (PORCINE) 5,000 UNITS/ML 1ML VIAL SQ SCH ×2 (10:00→21:59)
[2019-07-29] MEDS: CLOPIDOGREL BISULFATE 75 MG TABLET (FP) PO SCH (10:04)
[2019-07-29] MEDS: LOSARTAN 50MG/HCTZ 12.5MG 1 TAB (FP) PO SCH (10:04)
[2019-07-29 10:24] LABS: BASO % 0.4 % (0-2.0); EOS % 4.2 % (0-4.5); HEMATOCRIT 31.4 % (32.4-45.2); HEMOGLOBIN 9.7 GM/dL (10.7-15.3); LYMPH % 18.6 % (8-40); MEAN CELL VOLUME 56.2 fl (80-96); MEAN PLT VOLUME 10.7 fl (7.5-11.1); MONO % 6.2 % (3.8-10.2); NEUT % 70.6 % (42.8-82.8); PLATELET COUNT 210 K/MM3 (134-434); RDW 20.1 % (11.6-15.6); WHITE BLOOD COUNT 5.3 K/mm3 (4.0-10.0)
[2019-07-29 10:38] LABS: MCH 17.4 pg (25.7-33.7)
[2019-07-29 11:58] LABS: PLATELET ESTIMATE NORMAL
--- NOTE | 2019-07-29 12:24 | EKG ---
Test Reason : Blood Pressure : / mmHG Vent. Rate : 076 BPM Atrial Rate : 076 BPM P-R Int : 152 ms QRS Dur : 092 ms QT Int : 384 ms P-R-T Axes : 070 011 065 degrees QTc Int : 432 ms POOR DATA QUALITY, INTERPRETATION MAY BE ADVERSELY AFFECTED NORMAL SINUS RHYTHM ANTEROSEPTAL INFARCT (CITED ON OR BEFORE 21-JAN-2016) ABNORMAL ECG WHEN COMPARED WITH ECG OF 15-JUN-2019 19:07, NO SIGNIFICANT CHANGE WAS FOUND Confirmed by JOHNNY REY MD ([id number]) on 07/29/2019 12:24:15 PM Referred By: Confirmed By:JOHNNY REY MD
--- NOTE | 2019-07-29 14:10 | CON.CARD ---
Consult Consult Specialty:: cardiology - History of Present Illness History of Present Illness: The patient is an 83 year old female, with a significant PMH of HTN, left shoulder fracture (s/p repair), and CVA (MRI showing acute moderate to large cortical infarcts in L occipital/temporal lobe with punctate acute left thalamic infarct; residual left arm and left leg weakness), who presents to the ED for evaluation of progressively worsening unsteady gait and memory loss. Patient was seen by Dr. Zhou earlier today, who noticed her memory and balance were worse than prior visits (more than her residual baseline from prior CVA). Additionally, the patient's family can no longer provide care, and she needs to be placed in a facility. Allergies: Aspirin Surgical History: Left shoulder orthopedic surgery Social History: Denies tobacco, alcohol, and substance abuse PCP: Dr. Zhou - Past Medical History Cardio/Vascular: Yes: HTN ...: No Endocrine: Yes: Hypothyroidism - Alcohol/Substance Use Hx Alcohol Use: No - Smoking History Smoking history: Never smoked Have you smoked in the past 12 months: No Home Medications - Allergies Allergies/Adverse Reactions: Allergies Allergy/AdvReac Type Severity Reaction Status Date / Time aspirin Allergy Unknown Verified 07/28/19 17:49 - Home Medications Home Medications: Ambulatory Orders Levothyroxine Sodium [Unithroid] 25 mcg PO DAILY 01/21/16 Losartan 50Mg/Hctz 12.5MG [Hyzaar -] 1 tab PO DAILY 01/24/19 Atorvastatin Ca [Lipitor] 40 mg PO HS tablet 02/01/19 Clopidogrel Bisulfate [Plavix -] 75 mg PO DAILY tablet 02/01/19 Vital Signs: Vital Signs Temperature 98.3 F 07/29/19 02:00 Pulse Rate 72 07/29/19 06:00 Respiratory Rate 20 07/29/19 06:00 Blood Pressure 171/84 H 07/29/19 06:00 O2 Sat by Pulse Oximetry (%) 97 07/29/19 00:20 - Other Data Labs, Other Data: CBC, BMP 07/29/19 06:55 07/29/19 06:55 Troponin, BNP 07/28/19 07/28/19 07/29/19 18:10 23:10 02:00 Troponin I 0.09 H 0.12 H 0.12 H Troponin, BNP 07/28/19 07/28/19 07/29/19 18:10 23:10 02:00 Troponin I 0.09 H 0.12 H 0.12 H
[2019-07-29] MEDS ORDERED: POTASSIUM CHLORIDE TABS 20 MEQ TABLET.ER (FP) PO ONE (14:23)
--- NOTE | 2019-07-29 14:23 | HP ---
Admitting History and Physical - Admission History of Present Illness: Pt is an 83 year old female, with a significant PMH of HTN, and CVA w/ residual lt sided weakness. Pt presented to the ER w/ progressively worsening unsteady gait and memory loss. Patient was seen by Dr. Zhou earlier today, who noticed her memory and balance were worse than prior visits (more than her residual baseline from prior CVA). Additionally, the patient's family can no longer provide care, and she needs to be placed in a facility. Pt had ct scan head wc did not show any acute pathology however she was found to have elevated troponin and elevated BP. - Past Medical History SPECIAL LIBRARIAN: Yes: CVA Cardiovascular: Yes: HTN ...: No Endocrine: Yes: Hypothyroidism - Past Surgical History Additional Past Surgical History: Lt shoulder surgery - Smoking History Smoking history: Never smoked Have you smoked in the past 12 months: No - Alcohol/Substance Use Hx Alcohol Use: No Home Medications - Allergies Allergies/Adverse Reactions: Allergies Allergy/AdvReac Type Severity Reaction Status Date / Time aspirin Allergy Unknown Verified 07/28/19 17:49 - Home Medications Home Medications: Ambulatory Orders Levothyroxine Sodium [Unithroid] 25 mcg PO DAILY 01/21/16 Losartan 50Mg/Hctz 12.5MG [Hyzaar -] 1 tab PO DAILY 01/24/19 Atorvastatin Ca [Lipitor] 40 mg PO HS tablet 02/01/19 Clopidogrel Bisulfate [Plavix -] 75 mg PO DAILY tablet 02/01/19 Family Medical History Family History: Unable to Obtain Review of Systems Unable to obtain ROS, reason: Altered mental status Physical Examination Vital Signs: Vital Signs Temperature 97.8 F 07/29/19 10:00 Pulse Rate 74 07/29/19 10:00 Respiratory Rate 20 07/29/19 10:00 Blood Pressure 109/66 07/29/19 10:00 O2 Sat by Pulse Oximetry (%) 97 07/29/19 10:00 HENT: Yes: WNL Neck: Yes: WNL, Supple Cardiovascular: Yes: WNL, Regular Rate and Rhythm Respiratory: Yes: WNL, Regular, CTA Bilaterally Gastrointestinal: Yes: WNL, Normal Bowel Sounds, Soft Edema: No Neurological: Yes: Other (Awake follows simple commands) Labs: CBC, BMP 07/29/19 06:55 07/29/19 06:55 Problem List - Problems (1) Altered mental status Assessment/Plan: ?Due to worsening dementia Neuro consult Check TSH PT eval Code(s): R41.82 - ALTERED MENTAL STATUS, UNSPECIFIED (2) Elevated troponin Assessment/Plan: ?Demand ischemia As per cardio Code(s): R74.8 - ABNORMAL LEVELS OF OTHER SERUM ENZYMES (3) HTN (hypertension) Assessment/Plan: Accelerated HTN Cont losartan/hctz Add norvasc Check echo As per cardio Code(s): I10 - ESSENTIAL (PRIMARY) HYPERTENSION (4) CVA (cerebral vascular accident) Code(s): I63.9 - CEREBRAL INFARCTION, UNSPECIFIED (5) HLD (hyperlipidemia) Assessment/Plan: Cont lipitor Code(s): E78.5 - HYPERLIPIDEMIA, UNSPECIFIED (6) Hypothyroidism Assessment/Plan: Cont levothyroxine Check TSH Code(s): E03.9 - HYPOTHYROIDISM, UNSPECIFIED
[2019-07-29] MEDS: ATORVASTATIN CA 40 MG TABLET (FP) PO SCH (21:59)
[2019-07-30] MEDS: LEVOTHYROXINE NA 25 MCG TABLET (FP) PO SCH (06:40)
[2019-07-30 07:37] LABS: BASO % 0.8 % (0-2.0); EOS % 3.8 % (0-4.5); HEMATOCRIT 29.1 % (32.4-45.2); HEMOGLOBIN 9.3 GM/dL (10.7-15.3); LYMPH % 27.5 % (8-40); MCHC 31.9 g/dl (32.0-36.0); MEAN CELL VOLUME 55.4 fl (80-96); MONO % 7.4 % (3.8-10.2); NEUT % 60.5 % (42.8-82.8); RBC 5.24 M/mm3 (3.60-5.2); RDW 20.2 % (11.6-15.6)
[2019-07-30 08:11] LABS: MCH 17.7 pg (25.7-33.7)
[2019-07-30 09:17] LABS: ALBUMIN 2.5 g/dl (3.4-5.0); BILIRUBIN,TOTAL 0.4 mg/dL (0.2-1); BLOOD UREA NITROGEN 13.1 mg/dL (7-18); CALCIUM 8.2 mg/dL (8.5-10.1); CREATININE 0.5 mg/dL (0.55-1.3); POTASSIUM 3.6 mmol/L (3.5-5.1); TOT PROT 6.1 g/dl (6.4-8.2)
[2019-07-30 10:50] LABS: MEAN PLT VOLUME 10.8 fl (7.5-11.1); PLATELET COUNT 151 K/MM3 (134-434)
[2019-07-30 10:51] LABS: PLATELET ESTIMATE ADEQUATE
[2019-07-30] MEDS: CLOPIDOGREL BISULFATE 75 MG TABLET (FP) PO SCH (12:39)
[2019-07-30] MEDS: HEPARIN NA (PORCINE) 5,000 UNITS/ML 1ML VIAL SQ SCH ×2 (12:39→21:00)
[2019-07-30] MEDS: LOSARTAN 50MG/HCTZ 12.5MG 1 TAB (FP) PO SCH (12:40)
--- NOTE | 2019-07-30 14:13 | PN ---
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, Physician Chief Complaint: The patient is an 83 year old female, with a significant PMH of HTN, left shoulder fracture (s/p repair), and CVA (MRI showing acute moderate to large cortical infarcts in L occipital/temporal lobe with punctate acute left thalamic infarct; residual left arm and left leg weakness), who presents to the ED for evaluation of progressively worsening unsteady gait and memory loss. Patient was seen by Dr. Zhou earlier today, who noticed her memory and balance were worse than prior visits (more than her residual baseline from prior CVA). Additionally, the patient's family can no longer provide care, and she needs to be placed in a facility. Allergies: Aspirin Surgical History: Left shoulder orthopedic surgery Social History: Denies tobacco, alcohol, and substance abuse PCP: Dr. Zhou - Current Medication List Current Medications: Active Medications Atorvastatin Calcium (Lipitor -) 40 mg PO HS [facility] Last Admin: 07/29/19 21:59 Dose: 40 mg Clopidogrel Bisulfate (Plavix -) 75 mg PO DAILY [facility] Last Admin: 07/30/19 12:39 Dose: 75 mg HCTZ/Losartan Potassium (Hyzaar -) 1 tab PO DAILY [facility] Last Admin: 07/30/19 12:40 Dose: 1 tab Heparin Sodium (Porcine) (Heparin -) 5,000 unit SQ BID [facility] Last Admin: 07/30/19 12:39 Dose: 5,000 unit Levothyroxine Sodium (Synthroid -) 25 mcg PO DAILY@0700 [facility] Last Admin: 07/30/19 06:40 Dose: 25 mcg - Objective Vital Signs: Vital Signs Temperature 98 F 07/30/19 09:00 Pulse Rate 70 07/30/19 09:00 Respiratory Rate 18 07/30/19 09:00 Blood Pressure 140/70 07/30/19 09:00 O2 Sat by Pulse Oximetry (%) 100 07/30/19 09:00 Eyes: Yes: WNL, Conjunctiva Clear, EOM Intact HENT: Yes: WNL, Atraumatic, Normocephalic Neck: Yes: WNL, Supple, Trachea Midline Cardiovascular: Yes: WNL, Regular Rate and Rhythm Respiratory: Yes: WNL, Regular, CTA Bilaterally Gastrointestinal: Yes: WNL, Normal Bowel Sounds Genitourinary: Yes: WNL Musculoskeletal: Yes: WNL Extremities: Yes: WNL Edema: No Integumentary: Yes: WNL ...Motor Strength: WNL Psychiatric: Yes: WNL Labs: CBC, BMP 07/30/19 06:05 07/30/19 06:05 Problem List - Problems (1) Altered mental status Code(s): R41.82 - ALTERED MENTAL STATUS, UNSPECIFIED (2) HLD (hyperlipidemia) Code(s): E78.5 - HYPERLIPIDEMIA, UNSPECIFIED (3) Weakness Code(s): R53.1 - WEAKNESS (4) CVA (cerebral vascular accident) Code(s): I63.9 - CEREBRAL INFARCTION, UNSPECIFIED (5) Elevated troponin Code(s): R74.8 - ABNORMAL LEVELS OF OTHER SERUM ENZYMES (6) HTN (hypertension) Code(s): I10 - ESSENTIAL (PRIMARY) HYPERTENSION (7) Humerus fracture Code(s): S42.309A - UNSP FRACTURE OF SHAFT OF HUMERUS, UNSP ARM, INIT (8) Hypothyroidism Code(s): E03.9 - HYPOTHYROIDISM, UNSPECIFIED (9) Left shoulder pain Code(s): M25.512 - PAIN IN LEFT SHOULDER Qualifiers: Chronicity: acute Qualified Code(s): M25.512 - Pain in left shoulder (10) NSTEMI (non-ST elevated myocardial infarction) Code(s): I21.4 - NON-ST ELEVATION (NSTEMI) MYOCARDIAL INFARCTION (11) Syncope Code(s): R55 - SYNCOPE AND COLLAPSE Qualifiers: Syncope type: unspecified Qualified Code(s): R55 - Syncope and collapse Assessment/Plan old CVA HTN HLP dizziness Plan; Cardiac anderson stable. Cont treatment as per neurology
--- NOTE | 2019-07-30 15:31 | CONSULT ---
Consult - text type - Consultation Consultation Note: NEUROLOGY CONSULT GREATLY APPRECIATED: Events reviewed and discussed with KASSY Brown. Pt examined. 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 Lives with family. On: levothyroxine, losartan, atorvastatin, plavix. ED notes report family has increasing difficulty caring for Ms. You who requires assistance with all ADL's and ambulation since her stroke. Pt unable to provide cogent history, but reports she believes she has had memory issues for "[address] (reviewed): Mod, diffuse atrophy with ex vacuo ventricular dilation. Old large hypodensity in left parieto-occiptal region as well as smaller area in R parietal region. EKG NSR WBC 6.1, H/H 9.3/29.1 MCV=50 TSH= 1.44 alb 2.7; UA/UC neg CLIFFORD: Cor reg. (70s) No bruit. sl reduced neck ROM. Early contractures both knees. NEURO: Awake, alert, periods of mumbling. Follows most commands. Ox "[facility]" "[place]." Month . No president. No recall. + glabella, snout, suck, grasp, palmomentals. CNII-CNXII: Reduced blink to threat from R. No facial. Swallowing H20 small sips with assist. Gag ok. Motor: Mild L hemiparesis arm. Rigid tone legs > arms. Min cogwheel.Decreased SUSANNAH's B/L. Reflexes brisk arms with spread, reduced at knees , and present AJ's. Coordination: No obvious dystaxia. Sensation: Feels/ grimaces and withdraws pinch in all fours (R>L). Gait: Flexed, Spontaneous retropulsive. Cannot stand with one assist. Impression: Mod B/L Cerebral dysfunction (OMS, likely chronic) most consistent with Alzheimer's Disease +/- Multiinfarct state Right cerebral accentuation after MCA territory infarct. Suggest: Check B12 and RPR (OMS studies) as well as Fe++, TIBC, Feritin to evaluate severe microcytosis Add thiamine 250 mg IVPB Q8H x 3 days Add donepezil 5 mg po QAM PT eval vs. contracture Moblize pt OOB for meals. Assist with feeds. Pt may require higher (SNF) level of care. Thank you very much, Raza Perez MD
[2019-07-30] MEDS: THIAMINE HCL 200 MG/2 ML VIAL IVPB SCH (21:00)
[2019-07-30] MEDS: ATORVASTATIN CA 40 MG TABLET (FP) PO SCH (21:00)
--- NOTE | 2019-07-30 21:32 | PN ---
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, Physician - Current Medication List Current Medications: Active Medications Atorvastatin Calcium (Lipitor -) 40 mg PO HS [facility] Last Admin: 07/29/19 21:59 Dose: 40 mg Clopidogrel Bisulfate (Plavix -) 75 mg PO DAILY [facility] Last Admin: 07/30/19 12:39 Dose: 75 mg HCTZ/Losartan Potassium (Hyzaar -) 1 tab PO DAILY [facility] Last Admin: 07/30/19 12:40 Dose: 1 tab Heparin Sodium (Porcine) (Heparin -) 5,000 unit SQ BID [facility] Last Admin: 07/30/19 12:39 Dose: 5,000 unit Levothyroxine Sodium (Synthroid -) 25 mcg PO DAILY@0700 [facility] Last Admin: 07/30/19 06:40 Dose: 25 mcg Thiamine HCl (Vitamin B1 Injection -) 200 mg IVPB TID [facility] Stop: 08/02/19 21:59 - Objective Vital Signs: Vital Signs Temperature 97.6 F 07/30/19 17:00 Pulse Rate 92 H 07/30/19 17:00 Respiratory Rate 18 07/30/19 17:00 Blood Pressure 129/77 07/30/19 17:00 O2 Sat by Pulse Oximetry (%) 100 07/30/19 09:00 Labs: CBC, BMP 07/30/19 06:05 07/30/19 06:05 Problem List - Problems (1) Altered mental status Code(s): R41.82 - ALTERED MENTAL STATUS, UNSPECIFIED (2) Elevated troponin Code(s): R74.8 - ABNORMAL LEVELS OF OTHER SERUM ENZYMES (3) HTN (hypertension) Code(s): I10 - ESSENTIAL (PRIMARY) HYPERTENSION (4) CVA (cerebral vascular accident) Code(s): I63.9 - CEREBRAL INFARCTION, UNSPECIFIED (5) HLD (hyperlipidemia) Code(s): E78.5 - HYPERLIPIDEMIA, UNSPECIFIED (6) Hypothyroidism Code(s): E03.9 - HYPOTHYROIDISM, UNSPECIFIED
[2019-07-31] MEDS: THIAMINE HCL 200 MG/2 ML VIAL IVPB SCH ×3 (06:06→22:23)
[2019-07-31] MEDS: LEVOTHYROXINE NA 25 MCG TABLET (FP) PO SCH (06:06)
[2019-07-31] MEDS: LOSARTAN 50MG/HCTZ 12.5MG 1 TAB (FP) PO SCH (09:22)
[2019-07-31] MEDS: HEPARIN NA (PORCINE) 5,000 UNITS/ML 1ML VIAL SQ SCH ×2 (09:22→22:20)
[2019-07-31] MEDS: CLOPIDOGREL BISULFATE 75 MG TABLET (FP) PO SCH (09:22)
--- NOTE | 2019-07-31 21:33 | PN ---
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, Physician History of Present Illness: No new complaints - Current Medication List Current Medications: Active Medications Atorvastatin Calcium (Lipitor -) 40 mg PO HS [facility] Last Admin: 07/30/19 21:00 Dose: 40 mg Clopidogrel Bisulfate (Plavix -) 75 mg PO DAILY [facility] Last Admin: 07/31/19 09:22 Dose: 75 mg HCTZ/Losartan Potassium (Hyzaar -) 1 tab PO DAILY [facility] Last Admin: 07/31/19 09:22 Dose: 1 tab Heparin Sodium (Porcine) (Heparin -) 5,000 unit SQ BID [facility] Last Admin: 07/31/19 09:22 Dose: 5,000 unit Levothyroxine Sodium (Synthroid -) 25 mcg PO DAILY@0700 [facility] Last Admin: 07/31/19 06:06 Dose: 25 mcg Thiamine HCl (Vitamin B1 Injection -) 200 mg IVPB TID [facility] Stop: 08/02/19 21:59 Last Admin: 07/31/19 15:12 Dose: 200 mg - Objective Vital Signs: Vital Signs Temperature 98.2 F 07/31/19 18:00 Pulse Rate 65 07/31/19 18:00 Respiratory Rate 20 07/31/19 18:00 Blood Pressure 128/68 07/31/19 18:00 O2 Sat by Pulse Oximetry (%) 95 07/31/19 09:00 Neck: Yes: WNL, Supple Cardiovascular: Yes: WNL, Regular Rate and Rhythm Respiratory: Yes: WNL, Regular, CTA Bilaterally Gastrointestinal: Yes: WNL, Normal Bowel Sounds, Soft Labs: CBC, BMP 07/30/19 06:05 07/30/19 06:05 Problem List - Problems (1) Altered mental status Assessment/Plan: ?Alzheimer's dementia PT eval DC planning in am to [facility] Code(s): R41.82 - ALTERED MENTAL STATUS, UNSPECIFIED (2) Elevated troponin Assessment/Plan: ?Demand ischemia Code(s): R74.8 - ABNORMAL LEVELS OF OTHER SERUM ENZYMES (3) HTN (hypertension) Assessment/Plan: Accelerated HTN BP now stable Cont losartan/hctz Code(s): I10 - ESSENTIAL (PRIMARY) HYPERTENSION (4) CVA (cerebral vascular accident) Code(s): I63.9 - CEREBRAL INFARCTION, UNSPECIFIED (5) HLD (hyperlipidemia) Assessment/Plan: Cont lipitor Code(s): E78.5 - HYPERLIPIDEMIA, UNSPECIFIED (6) Hypothyroidism Assessment/Plan: Cont levothyroxine TSH normal Code(s): E03.9 - HYPOTHYROIDISM, UNSPECIFIED
[2019-07-31] MEDS: ATORVASTATIN CA 40 MG TABLET (FP) PO SCH (22:21)
[2019-07-31 23:36] VITALS: BMI 18.5
[2019-08-01] MEDS: LEVOTHYROXINE NA 25 MCG TABLET (FP) PO SCH (06:17)
[2019-08-01] MEDS: THIAMINE HCL 200 MG/2 ML VIAL IVPB SCH ×3 (06:18→21:15)
[2019-08-01] MEDS: HEPARIN NA (PORCINE) 5,000 UNITS/ML 1ML VIAL SQ SCH ×2 (09:06→21:16)
[2019-08-01] MEDS: CLOPIDOGREL BISULFATE 75 MG TABLET (FP) PO SCH (09:06)
[2019-08-01] MEDS: LOSARTAN 50MG/HCTZ 12.5MG 1 TAB (FP) PO SCH (09:06)
[2019-08-01] MEDS: ATORVASTATIN CA 40 MG TABLET (FP) PO SCH (21:15)
--- NOTE | 2019-08-01 22:29 | PN ---
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, Physician History of Present Illness: No new complaints - Current Medication List Current Medications: Active Medications Atorvastatin Calcium (Lipitor -) 40 mg PO HS [facility] Last Admin: 08/01/19 21:15 Dose: 40 mg Clopidogrel Bisulfate (Plavix -) 75 mg PO DAILY [facility] Last Admin: 08/01/19 09:06 Dose: 75 mg HCTZ/Losartan Potassium (Hyzaar -) 1 tab PO DAILY [facility] Last Admin: 08/01/19 09:06 Dose: 1 tab Heparin Sodium (Porcine) (Heparin -) 5,000 unit SQ BID [facility] Last Admin: 08/01/19 21:16 Dose: 5,000 unit Levothyroxine Sodium (Synthroid -) 25 mcg PO DAILY@0700 [facility] Last Admin: 08/01/19 06:17 Dose: 25 mcg Thiamine HCl (Vitamin B1 Injection -) 200 mg IVPB TID [facility] Stop: 08/02/19 21:59 Last Admin: 08/01/19 21:15 Dose: 200 mg - Objective Vital Signs: Vital Signs Temperature 97.6 F 08/01/19 20:58 Pulse Rate 74 08/01/19 20:58 Respiratory Rate 20 08/01/19 20:58 Blood Pressure 125/59 L 08/01/19 20:58 O2 Sat by Pulse Oximetry (%) 98 08/01/19 20:19 Neck: Yes: WNL, Supple Cardiovascular: Yes: WNL, Regular Rate and Rhythm Respiratory: Yes: WNL, Regular, CTA Bilaterally Gastrointestinal: Yes: WNL, Normal Bowel Sounds, Soft Labs: CBC, BMP 07/30/19 06:05 07/30/19 06:05 Problem List - Problems (1) Altered mental status Assessment/Plan: ?Alzheimer's dementia PT eval DC planning in am to [facility] Code(s): R41.82 - ALTERED MENTAL STATUS, UNSPECIFIED (2) Elevated troponin Assessment/Plan: ?Demand ischemia Code(s): R74.8 - ABNORMAL LEVELS OF OTHER SERUM ENZYMES (3) HTN (hypertension) Assessment/Plan: Accelerated HTN BP now stable Cont losartan/hctz Code(s): I10 - ESSENTIAL (PRIMARY) HYPERTENSION (4) CVA (cerebral vascular accident) Code(s): I63.9 - CEREBRAL INFARCTION, UNSPECIFIED (5) HLD (hyperlipidemia) Assessment/Plan: Cont lipitor Code(s): E78.5 - HYPERLIPIDEMIA, UNSPECIFIED (6) Hypothyroidism Assessment/Plan: Cont levothyroxine TSH normal Code(s): E03.9 - HYPOTHYROIDISM, UNSPECIFIED
[2019-08-02] MEDS: THIAMINE HCL 200 MG/2 ML VIAL IVPB SCH (06:01)
[2019-08-02] MEDS: LEVOTHYROXINE NA 25 MCG TABLET (FP) PO SCH (06:01)
--- NOTE | 2019-08-02 07:01 | ECHO ---
Name: GIBBONS, SAMANTHA ELLSWORTH Exam:Adult Echocardiogram Study Date: 07/30/2019 10:25 AM Age: 83 yrs Reason For Study: ACCELLERATED HTN Height: 60 in Weight: 100 lb BSA: 1.4 m2 MMode/2D Measurements & Calculations IVSd: 0.98 cm Ao root diam: 2.6 cm LVIDd: 4.3 cm LA dimension: 4.2 cm LVIDs: 2.9 cm LVPWd: 0.78 cm EDV(Teich): 84.5 ml LVOT diam: 2.0 cm ESV(Teich): 31.2 ml RV S Siddhartha: 10.0 cm/sec Doppler Measurements & Calculations MV E max siddhartha: 50.3 cm/sec Ao V2 max: 82.7 cm/sec MV A max siddhartha: 105.1 cm/sec Ao max P.7 mmHg MV E/A: 0.48 AI P1/2t: 761.9 msec MV dec time: 0.27 sec SARABJIT(V,D): 3.8 cm2 AI max siddhartha: 239.6 cm/sec LV V1 max P.1 mmHg AI max P.1 mmHg LV V1 max: 100.9 cm/sec AI dec slope: 92.1 cm/sec2 MR max siddhartha: 391.1 cm/sec TR max siddhartha: 230.8 cm/sec MR max P.2 mmHg TR max P.3 mmHg Med Peak E' Siddhartha: 2.7 cm/sec Med E/e': 18.4 Lat Peak E' Siddhartha: 4.2 cm/sec Lat E/e': 12.0 Left Ventricle There is mild concentric left ventricular hypertrophy. Ejection Fraction = 50-55%. The transmitral sp ectral Doppler flow pattern is suggestive of impaired LV relaxation. Right Ventricle The right ventricle is normal in size and function. Atria The left atrium is mildly dilated. Right atrial size is normal. Mitral Valve The mitral valve is normal in structure and function. There is no mitral valve stenosis. There is mil d mitral regurgitation. Tricuspid Valve The tricuspid valve is normal in structure and function. There is mild tricuspid regurgitation. Right ventricular systolic pressure is normal. Aortic Valve The aortic valve opens well. No hemodynamically significant valvular aortic stenosis. Mild aortic regurgitation. Pulmonic Valve The pulmonic valve is not well seen, but is grossly normal. There is no pulmonic valvular stenosis. Great Vessels The aortic root is normal size. Pericardium/Pleura There is no pericardial effusion. Interpretation Summary There is mild concentric left ventricular hypertrophy. Ejection Fraction = 50-55%. The transmitral spectral Doppler flow pattern is suggestive of impaired LV relaxation. The right ventricle is normal in size and function. The left atrium is mildly dilated. There is mild mitral regurgitation. There is mild tricuspid regurgitation. Right ventricular systolic pressure is normal. Mild aortic regurgitation. There is no pericardial effusion. MD Correia *Blas 07/30/2019 02:03 PM
[2019-08-02] MEDS: HEPARIN NA (PORCINE) 5,000 UNITS/ML 1ML VIAL SQ SCH (09:51)
[2019-08-02] MEDS: CLOPIDOGREL BISULFATE 75 MG TABLET (FP) PO SCH (09:51)
[2019-08-02] MEDS: LOSARTAN 50MG/HCTZ 12.5MG 1 TAB (FP) PO SCH (09:51)
--- NOTE | 2019-08-02 12:38 | PN ---
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, Physician Chief Complaint: The patient is an 83 year old female, with a significant PMH of HTN, left shoulder fracture (s/p repair), and CVA (MRI showing acute moderate to large cortical infarcts in L occipital/temporal lobe with punctate acute left thalamic infarct; residual left arm and left leg weakness), who presents to the ED for evaluation of progressively worsening unsteady gait and memory loss. Patient was seen by Dr. Zhou earlier today, who noticed her memory and balance were worse than prior visits (more than her residual baseline from prior CVA). Additionally, the patient's family can no longer provide care, and she needs to be placed in a facility. Allergies: Aspirin Surgical History: Left shoulder orthopedic surgery Social History: Denies tobacco, alcohol, and substance abuse PCP: Dr. Zhou - Current Medication List Current Medications: Active Medications Atorvastatin Calcium (Lipitor -) 40 mg PO HS [facility] Last Admin: 08/01/19 21:15 Dose: 40 mg Clopidogrel Bisulfate (Plavix -) 75 mg PO DAILY [facility] Last Admin: 08/02/19 09:51 Dose: 75 mg HCTZ/Losartan Potassium (Hyzaar -) 1 tab PO DAILY [facility] Last Admin: 08/02/19 09:51 Dose: 1 tab Heparin Sodium (Porcine) (Heparin -) 5,000 unit SQ BID [facility] Last Admin: 08/02/19 09:51 Dose: 5,000 unit Levothyroxine Sodium (Synthroid -) 25 mcg PO DAILY@0700 [facility] Last Admin: 08/02/19 06:01 Dose: 25 mcg Thiamine HCl (Vitamin B1 Injection -) 200 mg IVPB TID [facility] Stop: 08/02/19 21:59 Last Admin: 08/02/19 06:01 Dose: 200 mg - Objective Vital Signs: Vital Signs Temperature 98.0 F 08/02/19 10:00 Pulse Rate 92 H 08/02/19 10:00 Respiratory Rate 18 08/02/19 10:00 Blood Pressure 145/68 08/02/19 10:00 O2 Sat by Pulse Oximetry (%) 100 08/02/19 09:00 Eyes: Yes: WNL, Conjunctiva Clear, EOM Intact HENT: Yes: WNL, Atraumatic, Normocephalic Neck: Yes: WNL, Supple, Trachea Midline Cardiovascular: Yes: WNL, Regular Rate and Rhythm Respiratory: Yes: WNL, Regular, CTA Bilaterally Gastrointestinal: Yes: WNL, Normal Bowel Sounds Genitourinary: Yes: WNL Musculoskeletal: Yes: WNL Extremities: Yes: WNL Edema: No Integumentary: Yes: WNL Neurological: Yes: WNL, Alert, Oriented ...Motor Strength: WNL Psychiatric: Yes: WNL Labs: CBC, BMP 07/30/19 06:05 07/30/19 06:05 Problem List - Problems (1) Altered mental status Code(s): R41.82 - ALTERED MENTAL STATUS, UNSPECIFIED (2) HLD (hyperlipidemia) Code(s): E78.5 - HYPERLIPIDEMIA, UNSPECIFIED (3) Weakness Code(s): R53.1 - WEAKNESS (4) CVA (cerebral vascular accident) Code(s): I63.9 - CEREBRAL INFARCTION, UNSPECIFIED (5) Elevated troponin Code(s): R74.8 - ABNORMAL LEVELS OF OTHER SERUM ENZYMES (6) HTN (hypertension) Code(s): I10 - ESSENTIAL (PRIMARY) HYPERTENSION (7) Humerus fracture Code(s): S42.309A - UNSP FRACTURE OF SHAFT OF HUMERUS, UNSP ARM, INIT (8) Hypothyroidism Code(s): E03.9 - HYPOTHYROIDISM, UNSPECIFIED (9) Left shoulder pain Code(s): M25.512 - PAIN IN LEFT SHOULDER Qualifiers: Chronicity: acute Qualified Code(s): M25.512 - Pain in left shoulder (10) NSTEMI (non-ST elevated myocardial infarction) Code(s): I21.4 - NON-ST ELEVATION (NSTEMI) MYOCARDIAL INFARCTION (11) Syncope Code(s): R55 - SYNCOPE AND COLLAPSE Qualifiers: Syncope type: unspecified Qualified Code(s): R55 - Syncope and collapse Assessment/Plan old CVA HTN HLP dizziness Plan; Cardiac anderson stable. Cont treatment as per neurology d/c telemetry
--- NOTE | 2019-08-02 12:44 | DS ---
Physical Examination Vital Signs: Vital Signs Temperature 98.0 F 08/02/19 10:00 Pulse Rate 92 H 08/02/19 10:00 Respiratory Rate 18 08/02/19 10:00 Blood Pressure 145/68 08/02/19 10:00 O2 Sat by Pulse Oximetry (%) 100 08/02/19 09:00 Labs: CBC, BMP 07/30/19 06:05 07/30/19 06:05 Discharge Summary Problems reviewed: Yes Reason For Visit: MEMORY IMPAIRMENT Current Active Problems Altered mental status (Acute) HLD (hyperlipidemia) (Acute) Weakness (Acute) HTN Unsteady gait CVA Elevated troponin Hospital Course: Pt is an 83 year old female, with a significant PMH of HTN, and CVA w/ residual lt sided weakness. Pt presented to the ER w/ progressively worsening unsteady gait and memory loss. Pt was seen by neuro/cardio and monitored on telemetry w/ no changes. Pt weas found to have elevated troponin wc was felt to be due to demand ischmia. Pt also had ct scan of the ehad wc was negative for any acute changes. It was felt her symptoms were due to worsening dementia. Pt is now stable for dc to SNF. Condition: Good - Instructions Diet, Activity, Other Instructions: 2 gram sodium diet Referrals: Brian Alfred MD [Primary Care Provider] - Disposition: CARE HOME FACILITY - Home Medications Comprehensive Discharge Medication List: Ambulatory Orders Levothyroxine Sodium [Unithroid] 25 mcg PO DAILY 01/21/16 Losartan 50Mg/Hctz 12.5MG [Hyzaar -] 1 tab PO DAILY 01/24/19 Atorvastatin Ca [Lipitor] 40 mg PO HS tablet 02/01/19 Clopidogrel Bisulfate [Plavix -] 75 mg PO DAILY tablet 02/01/19
[2019-08-02 15:02] VITALS: BP 163/80; PULSE 100; TEMP 98.3
== END 2019-08-02 14:14 | DRG 57 ==
LOC: JER 17:29 → JERBED 18:54 → J4W 07-29 00:10
PROVIDERS: ADMIT Internal Medicine; ATTEND Internal Medicine
DX: G30.9 Alzheimer's disease, unspecified (principal); I24.8 Other forms of acute ischemic heart disease; G81.92 Hemiplegia, unspecified affecting left dominant side; F02.80 Dementia in other diseases classified elsewhere, unspecified severity, without behavioral disturbance, psychotic disturbance, mood disturbance, and anxiety; R35.0 Frequency of micturition; I10 Essential (primary) hypertension; E03.9 Hypothyroidism, unspecified; R74.8 Abnormal levels of other serum enzymes; E78.5 Hyperlipidemia, unspecified; R41.82 Altered mental status, unspecified; R26.81 Unsteadiness on feet
CPT/HCPCS: 36415; 70450-TC; 71045-TC-FY; 80053; 81003; 82550; 82607; 84443; 84484; 85025; 86593; 87086; 90670; 93005; 93010; 93306-TC; 93880-TC; 97116-GP; 97161-GP; 99285-25; J1644

== ENCOUNTER 2020-11-11 23:12 | Inpatient (IN) | payer OTHER ==
[2020-11-12] MEDS ORDERED: MORPHINE SULFATE 2 MG/ML VIAL IVPUSH ONE (00:28)
[2020-11-12] MEDS ORDERED: MORPHINE SULFATE 2 MG/ML VIAL ONE (00:53)
[2020-11-12 00:58] LABS: BASO % 0.5 % (0-2.0); EOS % 0.4 % (0-4.5); HEMATOCRIT 32.9 % (32.4-45.2); HEMOGLOBIN 10.5 GM/dL (10.7-15.3); LYMPH % 9.6 % (8-40); MEAN CELL VOLUME 59.4 fl (80-96); MEAN PLT VOLUME 9.9 fl (7.5-11.1); MONO % 3.9 % (3.8-10.2); NEUT % 85.6 % (42.8-82.8); PLATELET COUNT 218 K/MM3 (134-434); RBC 5.53 M/mm3 (3.60-5.2); RDW 16.6 % (11.6-15.6); WHITE BLOOD COUNT 12.4 K/mm3 (4.0-10.0)
[2020-11-12 01:17] LABS: INR 1.03 (0.83-1.09); PROTHROMBIN TIME (PATIENT) 12.4 SEC (9.7-13.0)
[2020-11-12 01:20] LABS: ACTIVATED PTT 28.7 SECONDS (25.2-36.5)
[2020-11-12 01:28] LABS: POTASSIUM 3.4 mmol/L (3.5-5.1)
[2020-11-12 01:30] LABS: CALCIUM 8.8 mg/dL (8.5-10.1)
[2020-11-12 01:31] LABS: ALBUMIN 3.1 g/dl (3.4-5.0); BLOOD UREA NITROGEN 15.8 mg/dL (7-18)
[2020-11-12 01:34] LABS: CREATININE 0.5 mg/dL (0.55-1.3)
[2020-11-12 01:36] LABS: BILIRUBIN,TOTAL 0.4 mg/dL (0.2-1); TOT PROT 7.1 g/dl (6.4-8.2)
[2020-11-12 04:19] LABS: EPI CELLS 4 /uL (0-25.1); HYALINE CASTS 10 /uL (0-3.1); URINE APPEARANCE CLEAR; URINE BACTERIA 636 /uL (0-1359); URINE BILIRUBIN NEGATIVE (NEGATIVE); URINE COLOR YELLOW; URINE GLUCOSE (UA) NEGATIVE (NEGATIVE); URINE KETONE TRACE (NEGATIVE); URINE LEUK ESTERASE TRACE (NEGATIVE); URINE NITRITE NEGATIVE (NEGATIVE); URINE PROTEIN NEGATIVE (NEGATIVE); URINE RBC 15 /uL (0-23.9); URINE UROBILINOGEN 0.2 mg/dL (0.2-1.0); URINE WBC 151 /uL (0-25.8)
[2020-11-12] MEDS ORDERED: POTASSIUM CHLORIDE TABS 20 MEQ TABLET.ER (FP) PO ONE ×2 (05:53→06:23)
[2020-11-12] MEDS ORDERED: ACETAMINOPHEN 325 MG TABLET (FP) PO PRN (06:10)
[2020-11-12] MEDS ORDERED: MORPHINE SULFATE 2 MG/ML VIAL IVPUSH PRN (06:10)
[2020-11-12] MEDS ORDERED: POTASSIUM CHLORIDE ORAL LIQUID 20 MEQ/15 ML PO ONE (06:35)
[2020-11-12 07:23] LABS: ANISOCYTOSIS 2+; MACROCYTOSIS 2+; OVALOCYTE 1+
[2020-11-12] MEDS: LEVOTHYROXINE NA 25 MCG TABLET (FP) PO SCH (07:32)
[2020-11-12] MEDS ORDERED: ENOXAPARIN NA (PORCINE) 40 MG/0.4 ML DISP.SYRIN SQ SCH (10:00)
[2020-11-12] MEDS ORDERED: ENOXAPARIN NA (PORCINE) 40 MG/0.4 ML DISP.SYRIN SQ ONE (12:33)
[2020-11-12 16:38] LABS: BASO % 0.4 % (0-2.0); EOS % 0.1 % (0-4.5); HEMATOCRIT 30.1 % (32.4-45.2); HEMOGLOBIN 9.7 GM/dL (10.7-15.3); LYMPH % 9.2 % (8-40); MCHC 32.3 g/dl (32.0-36.0); MEAN PLT VOLUME 10.8 fl (7.5-11.1); MONO % 5.4 % (3.8-10.2); NEUT % 84.9 % (42.8-82.8); PLATELET COUNT 203 K/MM3 (134-434); RDW 17.1 % (11.6-15.6); WHITE BLOOD COUNT 10.1 K/mm3 (4.0-10.0)
[2020-11-12 16:39] LABS: MCH 19.1 pg (25.7-33.7)
[2020-11-12 16:58] LABS: POTASSIUM 4.1 mmol/L (3.5-5.1)
[2020-11-12 17:00] LABS: ALBUMIN 3.1 g/dl (3.4-5.0); BLOOD UREA NITROGEN 17.4 mg/dL (7-18); CALCIUM 8.4 mg/dL (8.5-10.1)
[2020-11-12 17:03] LABS: PHOSPHOROUS 3.2 mg/dL (2.5-4.9)
[2020-11-12 17:05] LABS: BILIRUBIN,TOTAL 0.6 mg/dL (0.2-1); CREATININE 0.6 mg/dL (0.55-1.3); TOT PROT 7.1 g/dl (6.4-8.2)
[2020-11-12 17:19] LABS: PLATELET ESTIMATE ADEQUATE
[2020-11-12 20:45] VITALS: BMI 20.2
[2020-11-12] MEDS ORDERED: DOCUSATE SODIUM 100 MG CAPSULE (FP) PO SCH (22:00)
[2020-11-12] MEDS ORDERED: MIRTAZAPINE 15 MG TABLET (FP) PO SCH (22:00)
[2020-11-13] MEDS: LEVOTHYROXINE NA 25 MCG TABLET (FP) PO SCH (06:02)
[2020-11-13] MEDS ORDERED: BISACODYL 5 MG TABLET.DR (FP) PO SCH (10:00)
[2020-11-13] MEDS ORDERED: amLODIPine BESYLATE 5 MG TABLET (FP) PO SCH (10:00)
[2020-11-13] MEDS ORDERED: VALSARTAN 80 MG TABLET PO SCH (10:00)
[2020-11-13] MEDS ORDERED: ESCITALOPRAM OXALATE 10 MG TABLET PO SCH (10:00)
[2020-11-13] MEDS ORDERED: CEFTRIAXONE 1 GM in DEXTROSE 5%-WATER - 50 ML IVPB SCH (14:00)
[2020-11-13] MEDS ORDERED: PROPOFOL 20 ML ONE (17:14)
[2020-11-13] MEDS ORDERED: MIDAZOLAM HCL 2 MG/2 ML SINGLE DOSE VIAL ONE (17:27)
[2020-11-13] MEDS ORDERED: ceFAZolin SODIUM 1 GM VIAL IVPB ONE (18:00)
[2020-11-13] MEDS ORDERED: ceFAZolin SODIUM 1 GM VIAL ONE (18:04)
[2020-11-13] MEDS ORDERED: TRANEXAMIC ACID 1000 MG/10 ML VIAL ONE (18:17)
[2020-11-13] MEDS ORDERED: MAG HYDROX/AL HYDROX/SIMETH 30 ML UNIT-DOSE CUP PO PRN ×2 (19:02→19:13)
[2020-11-13] MEDS ORDERED: morphine CARPU-JECT 4 MG/1 ML DISP.SYRIN IM PRN (19:02)
[2020-11-13] MEDS ORDERED: ACETAMINOPHEN 325 MG TABLET (FP) PO PRN (19:02)
[2020-11-13] MEDS ORDERED: MAGNESIUM HYDROX 2400MG/30ML ORAL SUSPENSION 30 ML CUP PO PRN ×2 (19:02→19:13)
[2020-11-13] MEDS ORDERED: oxyCODONE HCL 5 MG TABLET PO PRN ×4 (19:02→19:13)
[2020-11-13] MEDS ORDERED: ONDANSETRON 4 MG/2 ML VIAL IVPUSH PRN ×2 (19:04→19:13)
[2020-11-13] MEDS ORDERED: morphine SULFATE 4 MG/ML VIAL IM PRN (19:13)
[2020-11-13] MEDS ORDERED: LACTATED RINGERS SOLUTION 1,000 ML IV SCH (19:15)
[2020-11-13] MEDS: LACTATED RINGERS SOLUTION 1,000 ML IV SCH (20:00)
[2020-11-13 21:19] LABS: HEMATOCRIT 24.8 % (32.4-45.2); HEMOGLOBIN 8.1 GM/dL (10.7-15.3); MCHC 32.7 g/dl (32.0-36.0); MEAN CELL VOLUME 59.7 fl (80-96); RBC 4.15 M/mm3 (3.60-5.2); RDW 17.5 % (11.6-15.6); WHITE BLOOD COUNT 10.9 K/mm3 (4.0-10.0)
[2020-11-13 21:33] LABS: MCH 19.6 pg (25.7-33.7)
[2020-11-13] MEDS ORDERED: ASCORBIC ACID 500 MG TABLET (FP) PO SCH (22:00)
[2020-11-13] MEDS: MIRTAZAPINE 15 MG TABLET (FP) PO SCH (22:01)
[2020-11-13] MEDS: ASCORBIC ACID 500 MG TABLET (FP) PO SCH (22:02)
[2020-11-13] MEDS: DOCUSATE SODIUM 100 MG CAPSULE (FP) PO SCH (22:03)
[2020-11-13 23:30] LABS: MEAN PLT VOLUME 10.9 fl (7.5-11.1); PLATELET COUNT 184 K/MM3 (134-434)
[2020-11-14] MEDS ORDERED: CEFAZOLIN 1 GM/D5W 50 ML IVPB SCH (02:00)
[2020-11-14] MEDS: LEVOTHYROXINE NA 25 MCG TABLET (FP) PO SCH (06:22)
[2020-11-14] MEDS ORDERED: FERROUS SO4 325 MG TABLET (FP) PO SCH (08:00)
[2020-11-14 09:03] LABS: HEMATOCRIT 20.8 % (32.4-45.2); HEMOGLOBIN 6.8 GM/dL (10.7-15.3); MCHC 32.5 g/dl (32.0-36.0); MEAN PLT VOLUME 10.3 fl (7.5-11.1); RBC 3.53 M/mm3 (3.60-5.2); RDW 17.1 % (11.6-15.6); WHITE BLOOD COUNT 9.5 K/mm3 (4.0-10.0)
[2020-11-14 09:08] LABS: MCH 19.2 pg (25.7-33.7)
[2020-11-14 09:24] LABS: POTASSIUM 3.4 mmol/L (3.5-5.1)
[2020-11-14 09:40] LABS: CREATININE 0.5 mg/dL (0.55-1.3)
[2020-11-14 09:41] LABS: CALCIUM 7.8 mg/dL (8.5-10.1)
[2020-11-14 09:46] LABS: BLOOD UREA NITROGEN 20.4 mg/dL (7-18)
[2020-11-14] MEDS: FERROUS SO4 325 MG TABLET (FP) PO SCH ×3 (09:48→18:40)
[2020-11-14] MEDS: VALSARTAN 80 MG TABLET PO SCH (09:48)
[2020-11-14] MEDS: ASCORBIC ACID 500 MG TABLET (FP) PO SCH ×2 (09:49→21:34)
[2020-11-14] MEDS: ACETAMINOPHEN 325 MG TABLET (FP) PO PRN ×2 (09:49→15:42)
[2020-11-14] MEDS: BISACODYL 5 MG TABLET.DR (FP) PO SCH (09:49)
[2020-11-14] MEDS: ESCITALOPRAM OXALATE 10 MG TABLET PO SCH (09:50)
[2020-11-14] MEDS: amLODIPine BESYLATE 5 MG TABLET (FP) PO SCH (09:50)
[2020-11-14] MEDS: LACTATED RINGERS SOLUTION 1,000 ML IV SCH (09:53)
[2020-11-14] MEDS: CEFTRIAXONE 1 GM in DEXTROSE 5%-WATER - 50 ML IVPB SCH (09:53)
[2020-11-14 10:05] LABS: PLATELET COUNT 159 K/MM3 (134-434)
[2020-11-14] MEDS ORDERED: morphine SULFATE 4 MG/ML VIAL IM PRN (13:18)
[2020-11-14] MEDS ORDERED: oxyCODONE HCL 5 MG TABLET PO PRN (13:19)
[2020-11-14] MEDS: MORPHINE SULFATE 2 MG/ML VIAL IVPUSH PRN ×2 (13:29→21:34)
[2020-11-14] MEDS: ENOXAPARIN NA (PORCINE) 30 MG/0.3 ML DISP.SYRIN SQ SCH (18:40)
[2020-11-14] MEDS ORDERED: ENOXAPARIN NA (PORCINE) 30 MG/0.3 ML DISP.SYRIN SQ SCH (19:02)
[2020-11-14] MEDS: MIRTAZAPINE 15 MG TABLET (FP) PO SCH (21:31)
[2020-11-14] MEDS: DOCUSATE SODIUM 100 MG CAPSULE (FP) PO SCH (21:33)
[2020-11-15] MEDS: LEVOTHYROXINE NA 25 MCG TABLET (FP) PO SCH (06:11)
[2020-11-15 09:01] LABS: HEMATOCRIT 31.1 % (32.4-45.2); HEMOGLOBIN 10.4 GM/dL (10.7-15.3); MCH 22.2 pg (25.7-33.7); MCHC 33.5 g/dl (32.0-36.0); MEAN CELL VOLUME 66.2 fl (80-96); MEAN PLT VOLUME 11.8 fl (7.5-11.1); PLATELET COUNT 160 K/MM3 (134-434); RBC 4.69 M/mm3 (3.60-5.2); RDW 24.8 % (11.6-15.6); WHITE BLOOD COUNT 12.6 K/mm3 (4.0-10.0)
[2020-11-15] MEDS: ESCITALOPRAM OXALATE 10 MG TABLET PO SCH (10:03)
[2020-11-15] MEDS: amLODIPine BESYLATE 5 MG TABLET (FP) PO SCH (10:03)
[2020-11-15] MEDS: ASCORBIC ACID 500 MG TABLET (FP) PO SCH ×2 (10:04→21:17)
[2020-11-15] MEDS: ENOXAPARIN NA (PORCINE) 30 MG/0.3 ML DISP.SYRIN SQ SCH (10:04)
[2020-11-15] MEDS: VALSARTAN 80 MG TABLET PO SCH (10:06)
[2020-11-15] MEDS: BISACODYL 5 MG TABLET.DR (FP) PO SCH (10:06)
[2020-11-15] MEDS: CEFTRIAXONE 1 GM in DEXTROSE 5%-WATER - 50 ML IVPB SCH (10:09)
[2020-11-15] MEDS: FERROUS SO4 325 MG TABLET (FP) PO SCH ×3 (12:13→18:25)
[2020-11-15] MEDS: DOCUSATE SODIUM 100 MG CAPSULE (FP) PO SCH (21:17)
[2020-11-15] MEDS: MIRTAZAPINE 15 MG TABLET (FP) PO SCH (21:17)
[2020-11-15] MEDS: oxyCODONE HCL 5 MG TABLET PO PRN (21:17)
[2020-11-16] MEDS: oxyCODONE HCL 5 MG TABLET PO PRN (02:11)
[2020-11-16] MEDS: LEVOTHYROXINE NA 25 MCG TABLET (FP) PO SCH (06:08)
[2020-11-16] MEDS: VALSARTAN 80 MG TABLET PO SCH (09:45)
[2020-11-16] MEDS: BISACODYL 5 MG TABLET.DR (FP) PO SCH (09:45)
[2020-11-16] MEDS: CEFTRIAXONE 1 GM in DEXTROSE 5%-WATER - 50 ML IVPB SCH (09:46)
[2020-11-16] MEDS: ASCORBIC ACID 500 MG TABLET (FP) PO SCH (09:51)
[2020-11-16] MEDS: amLODIPine BESYLATE 5 MG TABLET (FP) PO SCH (09:51)
[2020-11-16] MEDS: ESCITALOPRAM OXALATE 10 MG TABLET PO SCH (09:51)
[2020-11-16] MEDS: ENOXAPARIN NA (PORCINE) 30 MG/0.3 ML DISP.SYRIN SQ SCH (09:51)
[2020-11-16] MEDS: FERROUS SO4 325 MG TABLET (FP) PO SCH ×2 (09:51→13:37)
[2020-11-16 11:33] LABS: HEMATOCRIT 30.6 % (32.4-45.2); HEMOGLOBIN 10.2 GM/dL (10.7-15.3); MCH 22.3 pg (25.7-33.7); MCHC 33.3 g/dl (32.0-36.0); MEAN CELL VOLUME 66.9 fl (80-96); MEAN PLT VOLUME 11.1 fl (7.5-11.1); RBC 4.57 M/mm3 (3.60-5.2); RDW 25.2 % (11.6-15.6); WHITE BLOOD COUNT 9.9 K/mm3 (4.0-10.0)
[2020-11-16 12:53] LABS: PLATELET COUNT 150 K/MM3 (134-434)
[2020-11-16 14:56] VITALS: BP 130/63; PULSE 63; TEMP 97.6
== END 2020-11-16 17:18 | DRG 481 ==
LOC: JER 23:12 → JERBED 11-12 02:51 → J5WEST-2 11-12 18:41
PROVIDERS: ADMIT Internal Medicine; ATTEND Internal Medicine
PROC: 0QS736Z Reposition Left Upper Femur with Intramedullary Internal Fixation Device, Percutaneous Approach (ICD-10-PCS; principal; 2020-11-13 17:00)
PROC: 30233N1 Transfusion of Nonautologous Red Blood Cells into Peripheral Vein, Percutaneous Approach (ICD-10-PCS; 2020-11-14)
DX: S72.002A Fracture of unspecified part of neck of left femur, initial encounter for closed fracture (principal); N39.0 Urinary tract infection, site not specified; I69.352 Hemiplegia and hemiparesis following cerebral infarction affecting left dominant side; F03.90 Unspecified dementia, unspecified severity, without behavioral disturbance, psychotic disturbance, mood disturbance, and anxiety; I10 Essential (primary) hypertension; E03.9 Hypothyroidism, unspecified; D72.829 Elevated white blood cell count, unspecified; D50.9 Iron deficiency anemia, unspecified
CPT/HCPCS: 36415; 36430; 36511; 70450-TC; 71045-TC-FY; 72125-TC; 72192-TC; 76000-TC-FY; 80048; 80053; 81003; 82550; 82553; 82607; 82746; 83540; 83550; 83735; 84100; 84484; 85025; 85027; 85610; 85730; 86850; 86900; 86901; 86922; 87086; 87186; 93005; 93010; 93971-TC; 94760; 97116-GP; 97162-GP; 99285-25; C9803; P9038; P9058; U0003